=== PATIENT | male | born 1935 | race African-American/Black ===

== ENCOUNTER → 2016-12-06 | Outpatient (CLI) | payer MEDICARE, OTHER ==
[2016-04-28 15:18] VITALS: BP 147/72
[~2016-12-06] MED LIST: ALLO300T PO; ASPI325T4 PO; FELO5TAB PO; HYDR-963 PO; NITR0.4T6 SL; TAMS0.4C2 PO; TERA2CAP3 PO; ZOLP10TA PO; lortab; plendil
--- NOTE | 2016-12-06 14:03 | RAD ---
APPROVED REPORT Patient Location: OUT-PATIENT Indications PVD VELOCITY AND DOPPLER WAVEFORM ANALYSIS RIGHT cm/secWaveformSeverity LEFT c m/secWaveformSeverity Ext Iliac Art. 132.0MonophasicExt Iliac Art. 183.0Monophas ic pCFA 190.0MonophasicpCFA 140.0Monophas ic dCFA 150.0MonophasicdCFA 139.0Monophas ic Prof Fem Art. 174.0MonophasicProf Fem Art. 165.0Monophas ic Fem Art Prox. OccludedFem Art Prox. 174.0Monophasic Fem Art Mid. OccludedFem Art Mid. 167.0Monophasic Fem Art Dist. OccludedFem Art Dist. 110.0Monophasic Pop Art(AK) 34.0MonophasicPop Art(AK) 121.0Monophasi c Pop Art(BK) 36.0MonophasicPop Art(BK) 82.0Monophasic PHOTOGRAPHIC DOUBLE Prox. 40.0MonophasicPTA Prox. 58.0Monophasic PHOTOGRAPHIC DOUBLE Dist. 43.0MonophasicPTA Dist. 70.0Monophasic KENYON Prox. 29.0MonophasicATA Prox. 61.0Monophasic Image Findings Grayscale images of the right lower extremity arterial structures reveal moderate to severe diffuse p laque in the above-knee vessels. Monophasic waveforms are noted extending from the external iliac ar loan to the proximal superficial femoral artery. There is a long mid SFA occlusion. Reconstitution of blood flow is noted in the popliteal segment with persistent monophasic waveforms below the knee i n the anterior and posterior tibial distributions. The peroneal artery was not well visualized. Grayscale images of the left lower extremity arterial structures reveal moderate diffuse plaque. Mon ophasic waveforms are noted extending from the external iliac artery to the below-knee vessels. No s ignificant flow-limiting obstructive lesions are noted. Cannot rule out the possibility of a mid SFA stent. Below the knee anterior and posterior tibial distributions appear to be patent but with mono phasic waveforms suggestive of chronic long-standing lower extremity arterial disease. The peroneal artery again was not well visualized. Critical Notification Critical Value: No <Conclusion> 1. Bilateral lower extremity atherosclerotic peripheral vascular disease. 2. No significant flow-limiting stenosis on the left side. 3. There is a long mid SFA occlusion on the right side.
== END | disposition home or self-care (01) ==
LOC: US 12:41
PROVIDERS: ATTEND Internal Medicine Cardiovascular Disease
DX: I73.9 Peripheral vascular disease, unspecified (principal); I70.203 Unspecified atherosclerosis of native arteries of extremities, bilateral legs
CPT/HCPCS: 93925

== ENCOUNTER → 2017-04-26 | Outpatient (CLI) | payer MEDICARE, OTHER ==
[~2017-04-26] VITALS: Ht 172.7 cm; Wt 92.1 kg
[~2017-04-26] MED LIST changes: -ASPI325T4 PO; +ASPI325T8 PO; +BUPIVACAINE 0.5% 50 ML VIAL. IJ ONE; +IOHEXOL 300 MG/ML 10ML VIAL. IJ ONE; +IOHEXOL 300 MG/ML 50 ML VIAL. IJ ONE; +LIDOCAINE 1% / SOD BICARB 8.4% 20 ML VIAL. IJ ONE; +NITR0.4T22 SL; -NITR0.4T6 SL; +TRAM50TA PO; +methylPREDNISolone ACETATE 80 MG/ML VIAL. IM ONE
[2017-04-26 09:39] VITALS: BP 145/59
--- NOTE | 2017-04-26 10:51 | RAD ---
Fluoroscopically guided left hip joint injection, 04/26/2017: History: Hip pain Under local anesthesia, aseptic conditions and fluoroscopic guidance a 22-gauge spinal needle was passed in the left hip joint via an anterior approach. A small amount of iodinated contrast material was injected to confirm intra-articular positioning following which 80 mg of Depo-Medrol mixed with 4 cc of 0.5% Sensorcaine was injected into the joint as requested. The needle was then removed and hemostasis obtained. One fluoroscopic spot image was recorded. 0.5 minutes of fluoroscopy time was utilized. The patient tolerated the procedure well and left the department in good condition.
== END | disposition home or self-care (01) ==
LOC: RAD 09:03
PROVIDERS: ATTEND Internal Medicine
DX: M25.552 Pain in left hip (principal)
CPT/HCPCS: 20605; 77002; J1040; J3490; Q9967

== ENCOUNTER → 2019-06-11 | Outpatient (CLI) | payer MEDICARE, OTHER ==
[2017-07-01 09:37] VITALS: BP 147/66
[~2019-06-11] MED LIST changes: -BUPIVACAINE 0.5% 50 ML VIAL. IJ ONE; +HYDR-2769 PO; +HYDR-3135 PO; -HYDR-963 PO; -IOHEXOL 300 MG/ML 10ML VIAL. IJ ONE; -IOHEXOL 300 MG/ML 50 ML VIAL. IJ ONE; -LIDOCAINE 1% / SOD BICARB 8.4% 20 ML VIAL. IJ ONE; +LOSA1TAB19 PO; +METO25TA4 PO; +REGADENOSON 0.4 MG/5 ML DISP.SYRIN. IV ONE; +TEMA15CA6 PO; -methylPREDNISolone ACETATE 80 MG/ML VIAL. IM ONE
--- NOTE | 2019-06-11 12:20 | CARD ---
MR#: [id number] Date of Study: 06/11/2019 Ordering Physician: GORDON RICHARDSON, Referring Physician: GORDON RICHARDSON Tech: Radha García RDCS APPROVED REPORT EXAM: Two-dimensional and M-mode echocardiogram with Doppler and color Doppler. INDICATION Cardiac Disease: CAD Pacemaker 2D DIMENSIONS RVDd2.7 (2.9-3.5cm)Left Atrium(2D)2.4 (1.6-4.0cm) IVSd1.4 (0.7-1.1cm)Aortic Root(2D)2.5 (2.0-3.7cm) LVDd3.5 (3.9-5.9cm)LVOT Diameter2.0 (1.8-2.4cm) PWd1.5 (0.7-1.1cm)LVDs2.8 (2.5-4.0cm) FS (%) 19.6 %SV21.6 ml LVEF(%)55.0 (>50%) Aortic Valve AoV Peak Dayo.209.5cm/sAoV VTI49.1cm AO Peak GR.17.6mmHgLVOT Peak Dayo.103.3cm/s AO Mean GR.10mmHgAVA (VMAX)1.48cm2 KRISTEN (VTI)1.85ro4ZN P 1/2 Pckn114qi Mitral Valve MV E Mbuafhnx50.9cm/sMV DECEL EFHZ871nr MV A Gyaxokem36.3cm/sE/A Ratio0.8 Tricuspid Valve TR P. Xpbcihbd560ax/sRAP XSKKHGLR8slZy TR Peak Gr.80kmHnWJOJ55rsFh Pulmonary Vein S1 Ydpqtdrd45.4cm/sD2 Lhulwylj94.5cm/s LEFT VENTRICLE The left ventricle is normal size. There is mild to moderate left ventricular hypertrophy. The left v entricular systolic function is normal. The Ejection Fraction is 55-60%. There is normal LV segmental wall motion. Transmitral Doppler flow pattern is Grade I-abnormal relaxation pattern. RIGHT VENTRICLE The right ventricle is normal size. The right ventricular systolic function is normal. ATRIA The left atrium size is normal. The right atrium size is normal. The interatrial septum is intact wit h no evidence for an atrial septal defect or patent foramen ovale as noted on 2-D or Doppler imaging. AORTIC VALVE The aortic valve is calcified and displays decreased opening. Doppler and Color Flow revealed trace t o mild aortic regurgitation. Calculated aortic valve area is 1.6 cm2 with maximum pressure gradient o f 18 mmHg and mean pressure gradient of 10 mmHg. Doppler and color-flow analysis revealed mild aortic stenosis. MITRAL VALVE The mitral valve is mildly thickened but opens well. There is no evidence of mitral valve prolapse. T here is no mitral valve stenosis. Doppler and Color-flow revealed mild mitral regurgitation. TRICUSPID VALVE The tricuspid valve is normal in structure and function. Doppler and Color Flow revealed mild tricusp id regurgitation. There is mild pulmonary hypertension. The PA pressure was estimated at 38 mmHg. The re is no tricuspid valve stenosis. PULMONIC VALVE The pulmonary valve is normal in structure and function. Doppler and Color Flow revealed no pulmonic valvular regurgitation. There is no pulmonic valvular stenosis. GREAT VESSELS The aortic root is normal in size. The ascending aorta is not well seen. The IVC was not visualized. PERICARDIAL EFFUSION There is no evidence of significant pericardial effusion. Critical Notification Critical Value: No <Conclusion> The left ventricular systolic function is normal. The Ejection Fraction is 55-60%. There is normal LV segmental wall motion. Transmitral Doppler flow pattern is Grade I-abnormal relaxation pattern. Mild aortic stenosis. Trace to mild aortic regurgitation. Mild mitral regurgitation. Mild tricuspid regurgitation. The PA pressure was estimated at 38 mmHg. There is no evidence of significant pericardial effusion. Signed by : Gordon Richardson, Electronically Approved : 06/11/2019 12:19:26
--- NOTE | 2019-06-11 14:17 | RAD ---
MR#: [id number] Date of Study: 06/11/2019 Ordering Physician: GORDON RICHARDSON, Referring Physician: VICTORIANO GANT Tech: RT Johanna (R) (N) APPROVED REPORT Test Type: Pharmacological Stress Nurse/Tech: Geeta Barney RN Test Indications: dyspnea, dizziness Cardiac History: Hypertension, CAD (stents in place), pacemaker Medications: See Electronic Medical Record Medical History: See Electronic Medical Record Resting ECG: A. PACED RHYTHM Resting Heart Rate: 67 bpm Resting Blood Pressure: 139/74mmHg Pretest Chest Pain: No chest pain Nurse/Tech Notes S1,S2, LS clear Consent: The procedure was explained to the patient in lay terms. Informed consent was witnessed. Arnold eout was entered into [facility]. History and Stress Test performed by Getea Barney RN Pharm. Details Pharmacologic stress testing was performed using 0.4mg per 5ml of regadenoson given intravenously ove r 7-10 seconds. Stress Symptoms No chest pain or symptoms. POST EXERCISE Reason for Termination: Infusion complete Max HR: 84 bpm Max Blood Pressure: 151/64mmHg Chest Pain: No. Arrhythmia: No. ST Change: No. INTERPRETATION Stress EKG Conclusion: Baseline EKG showed atrial paced rhythm. Non-diagnostic changes at peak stres s. No arrhythmias. Imaging Protocol IMAGE PROTOCOL: Rest Tc-99m/stress Tc-99m 1 day Rest: Stress: Viability: Radiopharm.Tc99m XqffxyvtxIj06e Sestamibi Dose10.6mCi 33mCi Duration 15min. 15min. Img Date 06/11/2019 06/11/2019 Inj-Img Tuvn98ddr. 45min. Rest Admin Site:IV - Right HandAdministrator:RT Johanna (R)(N) Stress Admin Site: IV - Right HandAdministrator: YOUSIF Del Valle, ARRT (R)(N) STRESS DATA End Diast. Vol.142.0mlAv. Heart Rate60.0bpm End Syst. Vol.49.0mlCO Index BSA5.6L/min Myocardial Xjlg813.0gEject. Sivawaqy80.0% Stress Rates Pk. Fill Rate2.31EDV/secLVtime Pk. Fill 128.92msec Pk. Empty Rate2.42ESV/secLVtime Pk. Kmqfj382.87msec 1/3 Pk. Fill1.73EDV/sec Stress Scores Regional WT1.00Summed WT9.00 Regional WM0.00Summed WM1.00 LV Perfusion Scintigraphic images showed fixed defect in the inferior wall most probably diaphragmatic attenuation artifact based on normal wall motion. No other fixed or reversible defects were seen. Wall Motion Normal left ventricle systolic function with ejection fraction calculated at 65%. LV Perf. Quant 17 Seg. SSS6.00 17 Seg. SRS2.00 17 Seg. SDS4.00 Stress Defect Extent (% LAD)5.60Rest Defect Extent (% LAD)1.90Rev. Defect Extent (% LAD)1.30 Stress Defect Extent (% LCX) 13.80Rest Defect Extent (% LCX)13.80Rev. Defect Extent (% LCX)0.00 Stress Defect Extent (% RCA)5.60Rest Defect Extent (% RCA)8.90Rev. Defect Extent (% RCA)0.00 Stress Defect Extent (% TYRON)11.30Rest Defect Extent (% TYRON)10.40Rev. Defect Extent (% TYRON)0.40 Conclusion 1. Regadenoson cardioisotope stress test showed diaphragmatic attenuation artifact without any eviden ce of ischemia or infarct. 2. Normal left ventricular systolic function with ejection fraction calculated at 65%. 3. Low risk for cardiac events. Signed by : Gordon Richardson, Electronically Approved : 06/11/2019 14:17:27
--- NOTE | 2019-06-11 18:30 | RAD ---
MR#: [id number] Date of Study: 06/11/2019 Ordering Physician: GORDNO RICHARDSON, Referring Physician: GORDON RICHARDSON, Tech: Thomas Brice MBA, RDMS, RVT, RDCS, RTR APPROVED REPORT Patient Location: OUT-PATIENT Indications PAD VELOCITY AND DOPPLER WAVEFORM ANALYSIS RIGHT cm/secWaveformSeverity LEFT cm/secWaveform Severity dCFA 107.0MonophasicdCFA 150.0Monophasic Prof Fem Art. 69.0MonophasicProf Fem Art. 160.0Monophasic Fem Art Prox. OccludedFem Art Prox. Occluded Fem Art Mid. OccludedFem Art Mid. 40.0Monophasic Fem Art Dist. OccludedFem Art Dist. 68.0Monophasic Pop Art(AK) 23.0MonophasicPop Art(AK) 45.0Monophasic Pop Art(BK) 43.0MonophasicPop Art(BK) 71.0Monophasic TRANSITION TEACHER Prox. 31.0MonophasicPTA Prox. 45.0Monophasic TRANSITION TEACHER Dist. 36.0MonophasicPTA Dist. 56.0Monophasic KENYON Prox. 22.0MonophasicATA Prox. 44.0Monophasic DPA 19MonophasicDPA 13Monophasic Image Findings Grayscale images of the bilateral lower extremity arterial vessels reveals moderate diffuse plaque On the right the superficial femoral arteries occluded. There is reconstitution at the level of the p opliteal artery. There are severely diminished monophasic waveforms throughout the below-knee vessels . The right peroneal artery is not well visualized. Elevated velocities in the left profunda femoris artery suggestive of mild to moderate disease. The p roximal SFAs occluded. Mid to distal SFA and popliteal artery velocities as well as below-knee veloci ties are monophasic but there is likely a robust collateral network. The left peroneal artery is also not well visualized. Critical Notification Critical Value: No <Conclusion> 1. Bilateral SFA occlusions as described above. Severely diminished below-knee flow likely secondary to SFA disease. Signed by : Andrew Teixeira, Electronically Approved : 06/11/2019 18:30:13
== END | disposition home or self-care (01) ==
LOC: NM 10:42
PROVIDERS: ATTEND Internal Medicine Cardiovascular Disease
DX: I08.3 Combined rheumatic disorders of mitral, aortic and tricuspid valves (principal); I11.9 Hypertensive heart disease without heart failure; I77.1 Stricture of artery; I25.10 Atherosclerotic heart disease of native coronary artery without angina pectoris; I73.9 Peripheral vascular disease, unspecified; Z95.5 Presence of coronary angioplasty implant and graft; Z95.0 Presence of cardiac pacemaker
CPT/HCPCS: 78452; 93017; 93306; 93925; A9500; J2785

== ENCOUNTER 2019-08-26 10:03 | Inpatient (IN) | payer MEDICARE, OTHER ==
[~2019-08-26] VITALS: Ht 182.9 cm; Wt 78.2 kg
[~2019-08-26 10:03] MED LIST changes: -REGADENOSON 0.4 MG/5 ML DISP.SYRIN. IV ONE
[2019-08-26 10:30] VITALS: BP 171/66
[2019-08-26] MEDS ORDERED: TAMS0.4C97 PO ×2 (10:57→12:32)
[2019-08-26] MEDS ORDERED: ALLO300T PO (10:57)
[2019-08-26] MEDS ORDERED: ASPI325T8 PO (10:57)
[2019-08-26] MEDS ORDERED: LOSA-73 PO (10:57)
[2019-08-26] MEDS ORDERED: TRAZ-118 PO (10:57)
[2019-08-26 11:00] VITALS: BP 171/66
[2019-08-26] MEDS ORDERED: VANCOMYCIN 1 GM in IV NORMAL SALINE 250ML 250 ML IV ONE (12:15)
[2019-08-26] MEDS ORDERED: VANCOMYCIN PER PHARMACY MC PRN (12:15)
[2019-08-26] MEDS ORDERED: NITROGLYCERIN SUBLINGUAL 0.4 MG BOTTLE OF 25. SL PRN (12:30)
[2019-08-26] MEDS ORDERED: VANCOMYCIN 2 GM in IV NORMAL SALINE 500ML BAG 500 ML IV ONE (12:30)
[2019-08-26] MEDS ORDERED: traMADol 50 MG TABLET PO PRN (12:30)
[2019-08-26] MEDS ORDERED: PIPERACILLIN/TAZOBACTAM 3.375 GM in IV NORMAL SALINE 50ML 50 ML IV ONE (12:30)
[2019-08-26] MEDS ORDERED: TRAM50TA PO (12:32)
[2019-08-26] MEDS ORDERED: VANCOMYCIN 1.5 GM in IV NORMAL SALINE 500ML BAG 500 ML IV ONE (12:45)
[2019-08-26 13:00] LABS: HEMATOCRIT 31.2 % (39.0-53.0); HEMOGLOBIN 10.6 g/dL (13.0-17.5); WHITE BLOOD COUNT 4.7 x10^3/uL (4.0-11.0)
[2019-08-26 13:09] LABS: PROTHROMBIN TIME PATIENT 13.9 SEC (11.7-14.0)
[2019-08-26 13:16] LABS: CALCIUM 8.9 mg/dL (8.5-10.1); CREATININE 1.1 mg/dL (0.7-1.3); POTASSIUM 3.9 mmol/L (3.5-5.1)
[2019-08-26 13:22] LABS: ALBUMIN 3.5 g/dL (3.4-5.0); ALBUMIN/GLOBULIN RATIO 0.9 (1.0-1.7); TOTAL BILIRUBIN 0.5 mg/dL (0.2-1.0); TOTAL PROTEIN 7.2 g/dL (6.4-8.2)
--- NOTE | 2019-08-26 13:33 | PDOC2 ---
CONSULT Date of Consult Date of Consult DATE: 08/26/19 TIME: 13:25 Reason for Consult Reason for Consult: Right second toe ulceration History of Present Illness Reason for Visit: This is a very pleasant 84-year-old -[place] male who is referred for admission due to and ulceration of the right second toe secondary to rubbing on his first toe. Patient has a previous history of a pacemaker insertion and a long history of smoking a proximally 1 pack per day for 60 years. He denies any previous peripheral intervention. 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 Past Medical History Cardiovascular: CAD, HTN, Hyperlipidemia, Other Musculoskeletal: Osteoarthritis Infectious disease: No pertinent hx Renal/: No pertinent hx Endocrine: No pertinent hx Past Surgical History Past Surgical History: Pacemaker, Other Family History Family History: Heart Disease Social History Quit (1 pack per day for 60 years but quit 5 years ago) ALCOHOL: none Drugs: None Lives: with Family Current Medications Current Medications Current Medications Influenza Virus Vaccine Quadrival (Afluria Quad 2019-20 (3yr Up) Syringe) 0.5 ml ONCE ONCE VAX IM ; Start 08/26/19 at 15:00; Stop 08/26/19 at 15:01 Vancomycin HCl (Vanco Per Pharmacy) 1 each PRN DAILY PRN MC SEE COMMENTS; Start 08/26/19 at 12:15; Status UNV Vancomycin HCl 1 gm/Sodium Chloride 250 ml @ 250 mls/hr 1X ONCE IV ; Start at 12:15; Stop 08/26/19 at 13:14; Status UNV Piperacillin Sod/ Tazobactam Sod 3.375 gm/Sodium Chloride 50 ml @ 100 mls/hr Q6HRS IV ; Start 08/26/19 at 18:00 Vancomycin HCl 2 gm/Sodium Chloride 500 ml @ 250 mls/hr ONCE ONCE IV ; Start 08/26/19 at 12:30; Stop 08/26/19 at 14:29; Status Cancel Piperacillin Sod/ Tazobactam Sod 3.375 gm/Sodium Chloride 50 ml @ 100 mls/hr ONCE ONCE IV ; Start 08/26/19 at 12:30; Stop 08/26/19 at 12:59; Status DC Allopurinol (Zyloprim) 300 mg DAILY PO ; Start 08/27/19 at 09:00 Aspirin (Ecotrin) 325 mg DAILYWBKFT PO ; Start 08/27/19 at 08:00 Losartan Potassium (Cozaar) 50 mg DAILY PO ; Start 08/27/19 at 09:00 Nitroglycerin (Nitrostat) 0.4 mg PRN Q20MIN PRN SL CHEST PAIN; Start 08/26/19 at 12:30 Tamsulosin HCl (Flomax) 0.4 mg BID PO ; Start 08/26/19 at 21:00 Tramadol HCl (Ultram) 50 mg Q6HRS PRN PO PAIN; Start 08/26/19 at 12:30 Trazodone HCl (Desyrel) 50 mg QHS PO ; Start 08/26/19 at 21:00 Amlodipine Besylate (Norvasc) 5 mg DAILY16 PO ; Start 08/26/19 at 16:00 Vancomycin HCl 1.5 gm/Sodium Chloride 500 ml @ 250 mls/hr 1X ONCE IV ; Start 08/26/19 at 12:45; Stop 08/26/19 at 14:44 Active Scripts Active Reported Flomax (Tamsulosin Hcl) 0.4 Mg Cap.er.24h 1 Cap PO BID Tramadol Hcl 50 Mg Tablet 50 Mg PO Q6HRS PRN Trazodone Hcl 50 Mg Tablet 1 Tab PO QHS Aspirin 325 Mg Tablet 1 Tab PO DAILY Allopurinol 300 Mg Tablet 1 Tab PO DAILY Losartan Potassium 50 Mg Tablet 50 Mg PO DAILY NITROGLYCERIN SubLingual (Nitroglycerin) 0.4 Mg Tab.subl 1 Tab SL UD Felodipine Er (Felodipine) 5 Mg Tab.er.24h 1 Tab PO DAILY16 Allergies Allergies: Coded Allergies: No Known Drug Allergies (Unverified , 04/27/16) Physical Exam General: Alert, Oriented X3, Cooperative, No acute distress HEENT: EOMI, Mucous membr. moist/pink Lungs: Clear to auscultation, Normal air movement Heart: Regular rate, Normal S1, Normal S2 Abdomen: Soft, No tenderness, Other (no evidence of palpable pulsatile abdominal mass) Extremities: Other (2+ femoral pulses bilaterally, intact biphasic posterior tibial Doppler signal on the right with a monophasic Doppler signal in the dorsalis pedis location, biphasic dorsalis pedis and posterior tibial Doppler signal in the left lower extremity) Skin: Other (decubitus-type ulceration at the distal interphalangeal joint of the right second toe due to rubbing from the right first toe, skin discoloration and hyperpigmentation but no evidence of gangrenous changes) Neuro: Normal speech, Strength at 5/5 X4 ext, Normal tone, Sensation intact, Cranial nerves 3-12 NL Psych/Mental Status: Mental status NL, Mood NL Vitals VITALS Vital Signs Date Time Temp Pulse Resp B/P (MAP) Pulse Ox O2 Delivery O2 Flow Rate FiO2 08/26/19 11:00 98.3 65 171/66 (101) 99 Room Air 98.3 Labs Labs Laboratory Tests Test 08/26/19 12:40 White Blood Count 4.7 x10^3/uL (4.0-11.0) Hemoglobin 10.6 g/dL (13.0-17.5) Hematocrit 31.2 % (39.0-53.0) Platelet Count 165 x10^3/uL (140-400) Prothrombin Time 13.9 SEC (11.7-14.0) Prothromb Time International Ratio 1.1 (0.8-1.1) Sodium Level 142 mmol/L (136-145) Potassium Level 3.9 mmol/L (3.5-5.1) Chloride Level 109 mmol/L (98-107) Carbon Dioxide Level 26 mmol/L (21-32) Anion Gap 7 (6-14) Blood Urea Nitrogen 15 mg/dL (8-26) Creatinine 1.1 mg/dL (0.7-1.3) Estimated GFR (Cockcroft-Gault) 77.0 BUN/Creatinine Ratio 14 (6-20) Glucose Level 67 mg/dL (70-99) Calcium Level 8.9 mg/dL (8.5-10.1) Total Bilirubin 0.5 mg/dL (0.2-1.0) Aspartate Amino Transf (AST/SGOT) 17 U/L (15-37) Alanine Aminotransferase (ALT/SGPT) 16 U/L (16-63) Alkaline Phosphatase 74 U/L (46-116) Total Protein 7.2 g/dL (6.4-8.2) Albumin 3.5 g/dL (3.4-5.0) Albumin/Globulin Ratio 0.9 (1.0-1.7) Laboratory Tests Test 08/26/19 12:40 White Blood Count 4.7 x10^3/uL (4.0-11.0) Hemoglobin 10.6 g/dL (13.0-17.5) Hematocrit 31.2 % (39.0-53.0) Platelet Count 165 x10^3/uL (140-400) Prothrombin Time 13.9 SEC (11.7-14.0) Prothromb Time International Ratio 1.1 (0.8-1.1) Sodium Level 142 mmol/L (136-145) Potassium Level 3.9 mmol/L (3.5-5.1) Chloride Level 109 mmol/L (98-107) Carbon Dioxide Level 26 mmol/L (21-32) Anion Gap 7 (6-14) Blood Urea Nitrogen 15 mg/dL (8-26) Creatinine 1.1 mg/dL (0.7-1.3) Estimated GFR (Cockcroft-Gault) 77.0 BUN/Creatinine Ratio 14 (6-20) Glucose Level 67 mg/dL (70-99) Calcium Level 8.9 mg/dL (8.5-10.1) Total Bilirubin 0.5 mg/dL (0.2-1.0) Aspartate Amino Transf (AST/SGOT) 17 U/L (15-37) Alanine Aminotransferase (ALT/SGPT) 16 U/L (16-63) Alkaline Phosphatase 74 U/L (46-116) Total Protein 7.2 g/dL (6.4-8.2) Albumin 3.5 g/dL (3.4-5.0) Albumin/Globulin Ratio 0.9 (1.0-1.7) Assessment/Plan Assessment/Plan Atherosclerosis with ulceration of the right lower extremity--patient has an ulcer involving the distal interphalangeal joint of the right second toe. 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 I have recommended an aortogram with bilateral lower extremity runoff and possible right lower extremity intervention. The details of this procedure were discussed with the patient and his family and they are agreeable to proceed. We'll make him nothing by mouth after midnight tonight. We will follow-up with the antrum results and make further recommendations based on the findings. We will change his aspirin therapy to 81 mg as there is no benefit of a full dose aspirin to baby aspirin. We will take the liberty of starting the patient on a statin agent as well due to significant cardiovascular risk factors. Right second toe ulceration--there is no evidence of gangrene. The patient does have an ulcer at the distal interphalangeal joint. This does not appear markedly infected. I believe an oral antibiotic would be sufficient for prophylactic coverage. Once we have restored blood flow, we will see if the ulceration heals. If not I did discuss that the patient could require a toe amputation. Brendan De Anda DO, JOSE, RPVI Vascular Surgery BRENDAN DE ANDA DO Aug 26, 2019 13:33
[2019-08-26] MEDS: IV NORMAL SALINE 1000ML BAG 1,000 ML IV SCH (13:59)
[2019-08-26 15:00] VITALS: BP 172/77
[2019-08-26] MEDS ORDERED: FLU VAX QS 2019-20 (36MOS+)/PF 0.5 ML SYRINGE. VAX IM ONE (15:00)
[2019-08-26] MEDS: amLODIPine BESYLATE 5 MG TABLET PO SCH (15:05)
--- NOTE | 2019-08-26 16:00 | NUR ---
Wound care: Patient seen per wound care consult. See wound assessment. patient has stage III pressure ulcer to right 2nd toe. Patient seen by vascular, patient will have intervention and hopes wound will heal and patient will not need amputation. Wound cleansed, assessed, and measured. Recommendations to paint wound daily with Betadine and a corn placed to relieve the pressure from the big toe to the 2nd toe. No other wounds noted upon complete head to toe assessment. Dressing change instructions left in room. Bed lowered and call light in reach. Family at bedside. wound care will follow up with patient on 09/03/19.
[2019-08-26] MEDS: VANCOMYCIN PER PHARMACY MC PRN (16:53)
--- NOTE | 2019-08-26 16:53 | NUR ---
Pharmacy Vancomycin Dosing Note S: Consulted to monitor and dose vancomycin started 08/26/19. O: BOO MEDINA is a 84 year old M with GANGRENE TOE . Other Antibiotics: ZOSYN LABS: Last BUN: 15 Last Creatinine: 1.1 Creatinine Clearance: 40 mL/min Last WBC: 4.7 Tmax (past 24 hours): AFEBRILE Vancomycin Dosing: Dosing Weight: Actual Target Trough: 10-20 A: Based on: VANCO dosing guidelines P: 1. Begin Vancomycin 1500mg LOAD dose, then 1000 mg IV q24h 2. Follow up Trough level on 08/28/19 at 1430 3. Pharmacy will continue to monitor, follow and adjust therapy as needed. LEXI BOGGS, [facility], 08/26/19 [id number]
[2019-08-26] MEDS: PIPERACILLIN/TAZOBACTAM 3.375 GM in IV NORMAL SALINE 50ML 50 ML IV SCH (18:10)
[2019-08-26 19:00] VITALS: BP 157/76
[2019-08-26] MEDS: TAMSULOSIN 0.4 MG CAP.ER.24H. PO SCH (20:56)
[2019-08-26] MEDS: ATORVASTATIN CALCIUM 40 MG TABLET. PO SCH (20:56)
[2019-08-26] MEDS: traZODone 50 MG TABLET. PO SCH (20:56)
[2019-08-26 23:00] VITALS: BP 169/70
[2019-08-27] VITALS (14 sets, daily range): BP systolic 130–167; BP diastolic 61–117
[2019-08-27] MEDS: PIPERACILLIN/TAZOBACTAM 3.375 GM in IV NORMAL SALINE 50ML 50 ML IV SCH ×4 (00:02→16:56)
[2019-08-27] MEDS: IV NORMAL SALINE 1000ML BAG 1,000 ML IV SCH ×2 (03:00→20:00)
--- NOTE | 2019-08-27 07:05 | EKG ---
[facility] [address] [place] [address] Test Date: 2019-08-27 Test Time: 07:01:27 Pat Name: BOO MEDINA Department: Room: 436 1 Gender: M Blind Hanger: ANGELES : 1935 Requested By: GUILLE PINEDA Order Number: [id number] Reading MD: Measurements Intervals [place] Rate: 63 P: -90 WV: 146 QRS: 37 QRSD: 98 T: 34 QT: 444 QTc: 458 Interpretive Statements SINUS RHYTHM NO SPECIFIC ECG ABNORMALITIES RI6.01 Unconfirmed report Compared to ECG 06/29/2017 17:21:06 First degree AV block no longer present
[2019-08-27] MEDS ORDERED: ASPIRIN ENTERIC COATED 325 MG TABLET.DR. PO SCH (08:00)
--- NOTE | 2019-08-27 09:29 | PDOC ---
Provider Note Provider Note Vascular surgery progress Pt seen yesterday by Dr. Mcfadden for right second toe discoloration and ulcer. Today pt has no complaints. He is resting in bed comfortably. On US he has bilateral SFA occlusions, we have recommended arteriogram. A/P: Atherosclerosis with ulceration of the right lower extremity For arteriogram with BL runoff and possible RLE intervention today. Continue ASA, statin. Right second toe ulceration--there is no evidence of gangrene. The patient does have a pressure ulcer on medial second toe from a hallus valgus deformity at the distal interphalangeal joint. This does not appear markedly infected. We believe an oral antibiotic would be sufficient for prophylactic coverage. Once we have restored blood flow, we will see if the ulceration heals. If not we did discuss that the patient could require a toe amputation. HPlease notify vascular when results of AARO are available and we can review these with further recommendations later today and hopefully the patient can go home later this evening. Discussed with Dr. Johnson. SUSANNAH VIEIRA Aug 27, 2019 09:29
--- NOTE | 2019-08-27 10:07 | PDOC ---
Provider Note Provider Note PT seen.H&P dictated. #[id number] GUILLE PINEDA MD Aug 27, 2019 10:07
[2019-08-27] MEDS: VANCOMYCIN PER PHARMACY MC PRN (11:38)
--- NOTE | 2019-08-27 11:47 | HP ---
ADMIT DATE: 08/26/2019 REASON FOR ADMISSION TO THE HOSPITAL: Right second toe chronic ulceration, possible osteo and the patient's toe is turning black discoloration. HISTORY OF PRESENT ILLNESS: The patient is an 84-year-old male. The patient has a history of arthritis, peripheral vascular disease and he has a bunion at the big toe. Right big toe is rubbing and second toe, he has developed a skin ulcer and broke down and then, it is painful and lately it is turning into color to dark. The patient had a previous workup done, which shows vascular disease and because of possible osteo and early gangrene and peripheral vascular disease, was admitted to the hospital for IV antibiotics and vascular intervention. PAST MEDICAL HISTORY: He has history of hypertension, hyperlipidemia, coronary artery disease, arthritis. PAST SURGICAL HISTORY: Has a pacemaker. PERSONAL HISTORY: Smoked for 60 years, quit 5 years ago. Denies alcohol or drug abuse. SOCIAL HISTORY: Lives with his . ALLERGIES: No known drug allergies. MEDICATIONS AT HOME: The patient is on allopurinol 300 mg daily, aspirin 325 daily, felodipine 5 mg daily, losartan 50 mg daily, Nitro 0.4 p.r.n., Flomax 0.4 daily, tramadol 50 mg q. 6 hours, trazodone 50 mg at bedtime. FAMILY HISTORY: Unremarkable. REVIEW OF SYMPTOMS: Denies any chest pain. Complains of pain in the toe area. Rest of the 14-system was reviewed and negative. PHYSICAL EXAMINATION: VITAL SIGNS: At the time of admission shows a temperature 98, pulse 65, respirations 18, blood pressure 171/66, saturation 99% on room air. HEENT: Head is atraumatic. Pupils equal. Oral cavity: No congestion. NECK: Supple. Thyroid not enlarged. JVD not elevated. CHEST: Symmetrical, has a pacemaker in left side of chest. CARDIOVASCULAR: S1, S2. LUNGS: Clear to auscultation. ABDOMEN: Soft, no mass palpable. EXTERNAL GENITALIA: No Slade. RECTAL: Deferred. EXTREMITIES: The patient has arthritis in the knee, ankle. The patient has a bunion of the right big toe and also there is ulceration of the second toe, skin breakdown. He could feel the fibrous tissue at the base of the ulcer, dark discoloration of the toe, painful and the patient has no palpable pulsations at dorsalis and posterior tibial. Left foot, no ulcerations. NEUROLOGIC: Moving all extremities. No focal deficits noted. LABORATORY DATA: White count 4.7, hemoglobin 10.6, platelets 165. INR 1.1. Electrolytes show sodium 142, potassium 3.9, chloride 109, bicarb 26, BUN 15, creatinine 1.1. LFTs were normal. The patient had a Doppler of her lower extremity in April which showed bilateral superficial femoral artery occlusion. Diminished blood flow below the knee and the patient had a stress test negative for ischemia in May. FINAL IMPRESSION: 1. Right second toe ulcer, possible osteo, early gangrene. 2. Severe peripheral vascular disease, has a known history of peripheral vascular disease. 3. Coronary artery disease, stable; no angina; no ischemia. 4. Pacemaker for sick sinus syndrome. 5. Hypertension. 6. Arthritis. 7. Gout. PLAN: At this time, wound culture, started on antibiotic, vancomycin and Zosyn. Vascular consult and x-ray of the toe, probably may need a limited bone scan and the patient is seen by Vascular and scheduled for arteriogram and maybe a vascular intervention to improve the blood flow and further recommendations to follow. GUILLE PINEDA MD DR: MELISSA/michelle JOB#: [id number] / [id number]
[2019-08-27] MEDS ORDERED: IODIXANOL 320 MG/ML 100 ML VIAL. ONE (12:03)
[2019-08-27] MEDS ORDERED: LIDOCAINE WITH 8.4% SOD BICARB 3 ML DISP.SYRIN. ONE (12:04)
[2019-08-27] MEDS ORDERED: HEPARIN for ARTERIAL LINE 1,500 ML ONE (12:04)
[2019-08-27] MEDS ORDERED: MIDAZOLAM HCL/PF 2 MG/2 ML VIAL. ONE (13:01)
[2019-08-27] MEDS ORDERED: fentaNYL PF VIAL 100 MCG/2 ML VIAL ONE (13:01)
[2019-08-27] MEDS ORDERED: HEPARIN for IV BOLUS 10,000 UNIT/10 ML VIAL. ONE (13:02)
--- NOTE | 2019-08-27 13:16 | RAD ---
CHEST PA LATERAL History: Shortness of breath Comparison: 06/29/2017 AP view of the chest. Findings: Frontal and lateral view the chest were obtained. Costophrenic angles are not fully included on the lateral view. Dual-lead left-sided pacemaker is present. Leads are intact and in place on the basis of the lateral view. The cardiomediastinal silhouette is normal. Pulmonary vasculature is normal. The lungs are clear. No pleural effusion or pneumothorax is seen. There is no acute bone abnormality. IMPRESSION: No acute cardiopulmonary process. Electronically signed by: Óscar Harman MD (08/27/2019 1:13 PM) [facility]
[2019-08-27] MEDS ORDERED: fentaNYL PF VIAL 100 MCG/2 ML VIAL IV ONE (14:15)
[2019-08-27] MEDS ORDERED: MIDAZOLAM HCL/PF 2 MG/2 ML VIAL. IV ONE (14:15)
[2019-08-27] MEDS ORDERED: IODIXANOL 320 MG/ML 100 ML VIAL. IART ONE (14:15)
[2019-08-27] MEDS ORDERED: LIDOCAINE WITH 8.4% SOD BICARB 3 ML DISP.SYRIN. IJ ONE (14:15)
[2019-08-27] MEDS ORDERED: hydrALAZINE 20 MG/ML VIAL. ONE (14:29)
[2019-08-27] MEDS ORDERED: hydrALAZINE 20 MG/ML VIAL. IVP ONE (14:45)
[2019-08-27] MEDS ORDERED: VANCOMYCIN 1 GM in IV NORMAL SALINE 250ML 250 ML IV SCH (15:00)
--- NOTE | 2019-08-27 15:13 | NUR ---
SS following for discharge planning. SS reviewed pt chart. Pt is from home and is currently on room air. PT/OT evaluated and recommended home with assistance at discharge. landscape architect and planner, met with pt and family to discuss home healthcare. Pt's family requested no preference of company to discharge planning. Nurse navigator consulted and pt's family agreeable to [facility], ; fax [phone]. SS will continue to follow for discharge planning.
[2019-08-27] MEDS ORDERED: AMOX1TAB58 PO (15:15)
[2019-08-27] MEDS ORDERED: ATOR40TA59 PO (15:15)
[2019-08-27] MEDS: TAMSULOSIN 0.4 MG CAP.ER.24H. PO SCH ×2 (16:54→21:00)
[2019-08-27] MEDS: amLODIPine BESYLATE 5 MG TABLET PO SCH (16:55)
[2019-08-27] MEDS: LOSARTAN POTASSIUM 50 MG TABLET. PO SCH (16:55)
[2019-08-27] MEDS: ASPIRIN ENTERIC COATED 81 MG TABLET.DR. PO SCH (16:55)
[2019-08-27] MEDS: ALLOPURINOL 300 MG TABLET. PO SCH (16:56)
--- NOTE | 2019-08-27 17:05 | PDOC ---
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 reconstitution above the knee, distal sfa with two vessel runoff. could not traverse bench assembly inspector from above. Unsure degree to which wound is the result of vascular disease. If revascularization deemed necessary, could try retrograde endovascular approach, or bypass. Will defer to vascular surgery recs. JLAIL BUSTOS MD Aug 27, 2019 17:05
[2019-08-27] MEDS: ATORVASTATIN CALCIUM 40 MG TABLET. PO SCH (21:00)
[2019-08-27] MEDS: LACTOBACILLUS RHAMNOSUS GG 1 CAPSULE. PO SCH (21:00)
[2019-08-27] MEDS: traZODone 50 MG TABLET. PO SCH (21:00)
[2019-08-28] MEDS: PIPERACILLIN/TAZOBACTAM 3.375 GM in IV NORMAL SALINE 50ML 50 ML IV SCH ×2 (01:00→05:33)
[2019-08-28 02:55] VITALS: BP 118/61
[2019-08-28] MEDS: IV NORMAL SALINE 1000ML BAG 1,000 ML IV SCH (05:30)
[2019-08-28 07:00] VITALS: BP 102/68
[2019-08-28] MEDS: ASPIRIN ENTERIC COATED 81 MG TABLET.DR. PO SCH (08:59)
[2019-08-28] MEDS: LACTOBACILLUS RHAMNOSUS GG 1 CAPSULE. PO SCH (09:00)
[2019-08-28] MEDS: LOSARTAN POTASSIUM 50 MG TABLET. PO SCH (09:00)
[2019-08-28] MEDS: ALLOPURINOL 300 MG TABLET. PO SCH (09:00)
[2019-08-28] MEDS: TAMSULOSIN 0.4 MG CAP.ER.24H. PO SCH (09:00)
--- NOTE | 2019-08-28 09:44 | PDOC ---
Provider Note Provider Note Vascular surgery progress Pt seen and examined in room this am. He reports doing well, no complaints of groin pain or toe pain. He is resting in bed comfortably. Getting IV Zosyn this am. Ate breakfast without complaints/concerns. He had arteriogram yesterday O: VSS, afebrile Respiration non-labored Abdomen soft, nondistended, nontender Left groin site clean, dry and intact. No evidence of bleeding. Groin soft without hematoma Right foot warm, Dressing overlying second toe, clean dry and intact. Ulcer stable. Imaging: Reviewed arteriogram : with occluded right SFA, previously placed Rt JEANNINE and Lt SFA stents. Two vessel runoff to right foot. Unable to cross occluded SFA. Dr. 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 reconstitution above the knee, distal sfa with two vessel runoff. could not traverse director systems from above. Unsure degree to which wound is the result of vascular disease. If revascularization deemed necessary, could try retrograde endovascular approach, or bypass. Will defer to vascular surgery recs." A/P: Atherosclerosis with ulceration of the right lower extremity Chronic occlusion right SFA, not treatable with endovascular approach. I dis cussed this with the patient and we discussed options of revascularization, including right fem to above knee popliteal bypass. He is hesitant about surgery. We discussed this at length. I also discussed this with Dr. Mcfadden. We would like to give some time and see how the wound does, if it does not improve or heal we may need to be more aggressive. He can follow up with Dr. Mcfadden on 09/16 at 1140 at our [place] office location. Cont prophylactic PO abx upon discharge. Please get post op shoe for pt for ambulation. Continue ASA, statin. I discussed with Dr. Damon our plan. When considering major vascular surgery we typically require cardiac clearance, he noted patient had a normal stress test in April of this year and see's Dr. Bo regularly. He did not think it necessary to consult cardiology while patient is inpatient. I reviewed the stress test which notes pt is low risk for cardiac events. Thank you for involving us in his care, we will see him for follow up. Ok for discharge. SUSANNAH VIEIRA Aug 28, 2019 09:44
--- NOTE | 2019-08-28 09:45 | PDOC ---
PROGRESS NOTES Subjective Subjective feels better today Objective Objective Vital Signs Date Time Temp Pulse Resp B/P (MAP) Pulse Ox O2 Delivery O2 Flow Rate FiO2 08/28/19 09:00 61 102/68 08/28/19 07:00 98.1 16 99 Room Air 98.1 08/27/19 14:34 2.0 Intake and Output 08/28/19 07:00 Intake Total 340 ml Balance 340 ml Intake Oral 340 ml # Voids 4 Physical Exam Abdomen: Soft, No tenderness, Other (no evidence of palpable pulsatile abdominal mass) Heart: Regular rate, Normal S1, Normal S2 Extremities: Other (2+ femoral pulses bilaterally, intact biphasic posterior tibial Doppler signal on the right with a monophasic Doppler signal in the dorsalis pedis location, biphasic dorsalis pedis and posterior tibial Doppler signal in the left lower extremity) General: Alert, Oriented X3, Cooperative, No acute distress HEENT: EOMI, Mucous membr. moist/pink Lungs: Clear to auscultation, Normal air movement MUSCULOSKELETAL: Osteoarthritic changes both hands Neuro: Normal speech, Strength at 5/5 X4 ext, Normal tone, Sensation intact, Cranial nerves 3-12 NL Psych/Mental Status: Mental status NL, Mood NL Skin: Other (decubitus-type ulceration at the distal interphalangeal joint of the right second toe due to rubbing from the right first toe, skin discoloration and hyperpigmentation but no evidence of gangrenous changes) Assessment Assessment FINAL IMPRESSION: 1. Right second toe ulcer, possible osteo,? 2. Severe peripheral vascular disease, has a known history of peripheral vascular disease. 3. Coronary artery disease, stable; no angina; no ischemia. 4. Pacemaker for sick sinus syndrome. 5. Hypertension. 6. Arthritis. 7. Gout. PLAN: pt had arteriogram, good collaterals,could not do angioplasty. pt not interested with toe amputation for now. d/c home on augmentin for 7 days. spoke with family and vascular. At this time, wound culture, started on antibiotic, vancomycin and Zosyn. Vascular consult and x-ray of the toe, probably may need a limited bone scan and the patient is seen by Vascular and scheduled for arteriogram and maybe a vascular intervention to improve the blood flow and further recommendations to follow. Comment Review of Relevant I have reviewed the following items sachi (where applicable) has been applied. Labs Microbiology 08/26/19 Anaerobic/Aerobic Culture, Resulted Pending 08/26/19 Anaerobic Culture Result 1 (DANY), Resulted Pending 08/26/19 Aerobic Culture, Resulted Pending 08/26/19 Aerobic Culture Result 1 (DANY), Resulted Pending 08/26/19 Gram Stain - Final, Resulted 08/26/19 Gram Stain Result 1 (DANY) - Final, Resulted 08/26/19 Gram Stain Result 2 (DANY) - Final, Resulted Medications Current Medications Fentanyl Citrate (Fentanyl 2ml Vial) 100 mcg 1X ONCE IV Last administered on 08/27/19at 14:15; Start 08/27/19 at 14:15; Stop 08/27/19 at 14:26; Status DC Fentanyl Citrate (Fentanyl 2ml Vial) 100 mcg STK-MED ONCE .ROUTE ; Start 08/27/19 at 13:01; Stop 08/27/19 at 13:02; Status DC Heparin Sodium (Porcine) (Heparin Sodium) 10,000 unit STK-MED ONCE .ROUTE ; Start 08/27/19 at 13:02; Stop 08/27/19 at 13:02; Status DC Heparin Sodium/ Sodium Chloride 1,500 ml @ As Directed STK-MED ONCE .ROUTE ; Start 08/27/19 at 12:04; Stop 08/27/19 at 12:04; Status DC Heparin Sodium/ Sodium Chloride (HEPARIN for ARTERIAL LINE FLUSH) 1,000 unit 1X ONCE IART Last administered on 08/27/19at 14:15; Start 08/27/19 at 14:15; Stop 08/27/19 at 14:26; Status DC Heparin Sodium/ Sodium Chloride (HEPARIN for ARTERIAL LINE FLUSH) 1,000 unit 1X ONCE IART ; Start 08/27/19 at 14:15; Stop 08/27/19 at 14:26; Status DC Hydralazine HCl (Apresoline Inj) 10 mg 1X ONCE IVP ; Start 08/27/19 at 14:45; Stop 08/27/19 at 14:46; Status DC Hydralazine HCl (Apresoline Inj) 20 mg STK-MED ONCE .ROUTE ; Start 08/27/19 at 14:29; Stop 08/27/19 at 14:30; Status DC Iodixanol (Visipaque 320) 100 ml 1X ONCE IART Last administered on 08/27/19at 14:15; Start 08/27/19 at 14:15; Stop 08/27/19 at 14:26; Status DC Iodixanol (Visipaque 320) 100 ml STK-MED ONCE .ROUTE ; Start 08/27/19 at 12:03; Stop 08/27/19 at 12:04; Status DC Lactobacillus Rhamnosus (Culturelle) 1 cap BID PO Last administered on 08/28/19at 09:00; Start 08/27/19 at 21:00 Lidocaine HCl (Buffered Lidocaine 1%) 3 ml STK-MED ONCE .ROUTE ; Start 08/27/19 at 12:04; Stop 08/27/19 at 12:04; Status DC Lidocaine HCl (Buffered Lidocaine 1%) 9 ml 1X ONCE IJ Last administered on at 14:15; Start 08/27/19 at 14:15; Stop 08/27/19 at 14:26; Status DC Midazolam HCl (Versed) 1 mg 1X ONCE IV Last administered on 08/27/19at 14:15; Start 08/27/19 at 14:15; Stop 08/27/19 at 14:26; Status DC Midazolam HCl (Versed) 2 mg STK-MED ONCE .ROUTE ; Start 08/27/19 at 13:01; Stop 08/27/19 at 13:01; Status DC Vancomycin HCl (Vancomycin Trough Level) 1 each 1X ONCE MC ; Start 08/28/19 at 14:30; Stop 08/28/19 at 14:31 Vancomycin HCl 1 gm/Sodium Chloride 250 ml @ 250 mls/hr Q24H IV Last administered on 08/27/19at 23:00; Start 08/27/19 at 15:00 Vitals/I & O Vital Sign - Last 24 Hours 08/27/19 08/27/19 08/27/19 08/27/19 11:00 14:15 14:34 15:00 Temp 98.1 98.1 Pulse 61 62 66 Resp 16 18 18 B/P (MAP) 167/84 (111) 159/67 (97) Pulse Ox 98 95 97 99 O2 Delivery Room Air Nasal Cannula Nasal Cannula O2 Flow Rate 2.0 2.0 08/27/19 08/27/19 08/27/19 08/27/19 15:15 15:30 15:45 16:00 Pulse 64 68 66 84 B/P (MAP) 161/63 (95) 162/99 (120) 153/87 (109) 147/117 (127) 08/27/19 08/27/19 08/27/19 08/27/19 16:30 16:55 16:55 17:00 Pulse 64 75 75 65 B/P (MAP) 150/73 (98) 160/78 160/78 160/78 (105) 08/27/19 08/27/19 08/27/19 08/27/19 18:00 19:35 20:00 23:15 Temp 97.9 97.9 97.9 97.9 Pulse 66 62 66 Resp 18 18 B/P (MAP) 130/61 (84) 150/66 (94) 163/70 (101) Pulse Ox 99 100 O2 Delivery Room Air Room Air Room Air 08/28/19 08/28/19 08/28/19 02:55 07:00 09:00 Temp 98.1 98.1 98.1 98.1 Pulse 69 61 61 Resp 18 16 B/P (MAP) 118/61 (80) 102/68 (79) 102/68 Pulse Ox 96 99 O2 Delivery Room Air Room Air Intake and Output 08/27/19 08/27/19 08/28/19 15:00 23:00 07:00 Intake Total 340 ml Balance 340 ml GUILLE PINEDA MD Aug 28, 2019 09:45
--- NOTE | 2019-08-28 09:49 | SNU/HH DC ---
DISCHARGE WITH HOME HEALTH DISCHARGE INFORMATION: Discharge Date: Aug 28, 2019 Condition on Discharge: Stable CODE STATUS: Code Status: Full HOME HEALTH: Face to Face: I certify this patient is under my care and that I, or a nurse practitioner or manny ayala's cook's assistant working with me, had a face to face encounter that meets the physician face to face encounter requirements with this patient on [08/28/19]. Medical Complications: Other (pvd+toe ulcer) RN For Eval/Treatment: Yes Pt Meets Homebound Status: Unsteady balance w/ amb, POST DISCHARGE ORDERS: Activity Instructions for Disc: Activity as tolerated Weight Bearing Status after Di: As tolerated Wound/Incision Care: Change dressing CHECKS AFTER DISCHARGE: Checks after discharge: Check blood press - daily TREATMENT/EQUIPMENT ORDERS: Adaptive Equipment Issued: None CERTIFICATION STATEMENT: Certification Statement: Certification Statement: Based on the above finding, I certify that this patient is confined to the home and needs intermittent nursing home care, physical therapy and/or speech therapy, or continues to need occupational therapy.~ This patient is under my care, and I have initiated the establishment of the plan of care.~ This patient will be followed by myself or a community physician who will periodically review the plan of care. Home Meds Active Scripts Amoxicillin/Potassium Clav (AUGMENTIN 500-125 TABLET) 1 Each Tablet, 1 TAB PO BID for toe ulcer for 7 Days, #14 TAB 0 Refills Prov:GUILLE PINEDA MD 08/27/19 Atorvastatin Calcium (ATORVASTATIN CALCIUM) 40 Mg Tablet, 40 MG PO QHS for chol for 30 Days, #30 TAB Prov:GUILLE PINEDA MD 08/27/19 Reported Medications Tamsulosin Hcl (FLOMAX) 0.4 Mg Cap.er.24h, 1 CAP PO BID for BPH, #30 CAP 11 Refills 08/26/19 Tramadol Hcl (TRAMADOL HCL) 50 Mg Tablet, 50 MG PO Q6HRS PRN for PAIN, TAB 08/26/19 Trazodone Hcl (TRAZODONE HCL) 50 Mg Tablet, 1 TAB PO QHS for Sleep aide , #30 TAB 1 Refill 08/26/19 Aspirin (ASPIRIN) 325 Mg Tablet, 1 TAB PO DAILY for stroke prevention, #30 TAB 5 Refills 08/26/19 Allopurinol (ALLOPURINOL) 300 Mg Tablet, 1 TAB PO DAILY for gout, #30 TAB 5 Refills 08/26/19 Losartan Potassium (LOSARTAN POTASSIUM) 50 Mg Tablet, 50 MG PO DAILY for HYPERTENSION, TAB 08/26/19 Nitroglycerin (NITROGLYCERIN SubLingual) 0.4 Mg Tab.subl, 1 TAB SL UD, #25 TAB 3 Refills 04/19/16 Felodipine (FELODIPINE ER) 5 Mg Tab.er.24h, 1 TAB PO DAILY16, #30 TAB 5 Refills 04/19/16 Discontinued Reported Medications Tamsulosin Hcl (FLOMAX) 0.4 Mg Cap.er.24h, 1 CAP PO DAILY for BPH, #30 CAP 11 Refills 08/26/19 Temazepam (RESTORIL) 15 Mg Capsule, 15 MG PO HS PRN for INSOMNIA, CAP 06/29/17 Hydrocodone Bit/Acetaminophen (HYDROCODONE-APAP 10-325 ) 1 Each Tablet, 1 TAB PO PRN Q6HRS PRN for PAIN, TAB 0 Refills 06/29/17 Losartan/Hydrochlorothiazide (LOSARTAN-HCTZ 50-12.5 MG TAB) 1 Each Tablet, 1 TAB PO DAILY, #30 TAB 5 Refills 06/29/17 Tramadol Hcl (TRAMADOL HCL) 50 Mg Tablet, 50 MG PO Q6H PRN for PAIN, TAB 04/26/17 Aspirin (ASPIRIN) 325 Mg Tablet, 1 TAB PO DAILY, #30 TAB 5 Refills 04/19/16 Tamsulosin Hcl (TAMSULOSIN HCL) 0.4 Mg Cap.er.24h, 1 CAP PO DAILY, #30 CAP 5 Refills 04/19/16 Allopurinol (ALLOPURINOL) 300 Mg Tablet, 1 TAB PO DAILY, #30 TAB 5 Refills 04/19/16 [plendil] No Conflict Check 01/23/14 GUILLE PINEDA MD Aug 28, 2019 09:49
--- NOTE | 2019-08-28 09:55 | PDOC ---
Provider Note Provider Note Discharge summary dictated.#[id number]. GUILLE PINEDA MD Aug 28, 2019 09:55
[2019-08-28 11:00] VITALS: BP 116/67
--- NOTE | 2019-08-28 11:24 | DS ---
DATE OF DISCHARGE: 08/28/2019 REASON FOR ADMISSION TO THE HOSPITAL: 1. Right second toe ulcer. 2. Peripheral vascular disease. CONSULTATIONS: Dr. Herrera, Vascular. PROCEDURE DONE: Arteriogram. HOSPITAL COURSE: The patient is an 84-year-old male with history of pacemaker for sick sinus syndrome, peripheral vascular disease, has hammertoe and bunion with right big toe pressing on the right second toe, has developed ulcerations, skin breakdown and developing dark discoloration, who was admitted to hospital, was seen by Vascular. The patient had arteriogram and has developed some collaterals [id number] and could not do any angioplasty and it was thought to have enough blood flow for the wounds to heal. The patient was put on Augmentin after IV antibiotics for a day or two, vancomycin and Zosyn. Cultures so far growth negative. X-ray of the toe was done, report is pending. The patient was feeling better. He is not interested in an amputation of the toe or bypass to the leg. At the present time, he wanted to see the how the toe improves in the next couple of weeks. We will discharged on Augmentin, home health and to follow with Vascular. FINAL DIAGNOSES: 1. Right toe ulcer secondary to peripheral vascular disease. 2. Ulcer of bunion with right big toe pressing on the second toe, was given some pressure relief sleeve for the toe. 3. Peripheral vascular disease. 4. Chronic sick sinus syndrome, on pacemaker and benign prostatic hypertrophy, arthritis. DISPOSITION: Home with home health and similar for discharge medications. Follow up in the office in 1 week, Vascular in 2-3 weeks. GUILLE PINEDA MD DR: MELISSA/michelle JOB#: [id number] / [id number]
--- NOTE | 2019-08-28 12:43 | NUR ---
Discharge Note: [facility] [address] [place] [address] Discharge instructions and discharge home medications reviewed with Patient and a copy given. All questions have been answered and understanding verbalized. The following instructions and handouts were given: Diet, activity, medication list and follow up instructions provided to patient and patient's . Discontinued lines and drains: Peripheral IV discontinued and catheter intact. Patient discharged to Home w/services with Family Member via Wheelchair
--- NOTE | 2019-08-28 17:18 | RAD ---
3 view study right foot Clinical indications: Second toe ulcer. FINDINGS: Soft tissue swelling of the second digit is seen. Due to the hammertoe deformity of the second through fifth digits, the distal aspect of the second digit is difficult to visualize in both views. Therefore, evaluation for osteomyelitis cannot be completed. No lytic process is seen elsewhere. No acute fracture is evident. There is lateral subluxation of the first proximal phalanx with respect to the first metatarsal bone. Bunion is seen. Flattening of the plantar arch is seen. Plantar spur of the calcaneus is seen. IMPRESSION: Due to the hammertoe deformity of the second through fifth digits, evaluation for osteomyelitis of the distal tip of the second digit cannot be completed radiographically. Therefore, MRI study may be needed if there is strong clinical concern for osteomyelitis. Electronically signed by: Kranthi Henry MD (08/28/2019 5:15 PM) [id number]
== END 2019-08-28 12:45 | disposition home health service (06) | DRG 594 ==
LOC: 4 NORTH 10:03
PROVIDERS: ADMIT Internal Medicine; ATTEND Internal Medicine
PROC: B410YZZ Fluoroscopy of Abdominal Aorta using Other Contrast (ICD-10-PCS; principal; 2019-08-27)
PROC: B41JYZZ Fluoroscopy of Other Lower Arteries using Other Contrast (ICD-10-PCS; 2019-08-27)
DX: L97.519 Non-pressure chronic ulcer of other part of right foot with unspecified severity (principal); I70.201 Unspecified atherosclerosis of native arteries of extremities, right leg; M19.90 Unspecified osteoarthritis, unspecified site; I25.10 Atherosclerotic heart disease of native coronary artery without angina pectoris; I10 Essential (primary) hypertension; M21.00 Valgus deformity, not elsewhere classified, unspecified site; E78.5 Hyperlipidemia, unspecified; I49.5 Sick sinus syndrome; M10.9 Gout, unspecified; N40.0 Benign prostatic hyperplasia without lower urinary tract symptoms; Z79.899 Other long term (current) drug therapy; Z87.891 Personal history of nicotine dependence; Z95.0 Presence of cardiac pacemaker; Z82.49 Family history of ischemic heart disease and other diseases of the circulatory system
CPT/HCPCS: 36246; 36415; 71046; 73620; 75625; 75716; 76937; 80053; 85027; 85610; 87071; 87075; 90471; 90686; 93005; 99152; 99153; C1713; C1760; C1769; C1892; C1894; J1644; J2250; J2543; J3010; J3370; J7030; J7040; J7050; Q9967; 97116; 97535; G0378

== ENCOUNTER 2019-09-18 09:55 | Day surgery (SDC) | payer MEDICARE, OTHER ==
[~2019-09-18] VITALS: Ht 188 cm; Wt 78.0 kg
[~2019-09-18 09:55] MED LIST changes: +AMOX1TAB58 PO; +ATOR40TA59 PO; +BACITRACIN 50,000 UNIT in IV NORMAL SALINE 500ML BAG 500 ML IRR ONE; +HYDROmorphone 2 MG/ML VIAL IV PRN; +IV RINGERS,LACTATED 1000ML 1,000 ML IV SCH; +LOSA-73 PO; +MORPHINE SULFATE 2 MG/ML VIAL. IV PRN; +ONDANSETRON PF 4 MG/2 ML VIAL. IV PRN; +PROCHLORPERAZINE 10 MG/2 ML VIAL. IV PRN; +TAMS0.4C97 PO; +TRAZ-118 PO; +fentaNYL PF VIAL 100 MCG/2 ML VIAL IV PRN
[2019-09-18] MEDS ORDERED: ceFAZolin 2GM PREMIX 2 GM/50 ML BAG IV ONE (10:00)
[2019-09-18] MEDS ORDERED: ONDANSETRON PF 4 MG/2 ML VIAL. ONE (10:09)
[2019-09-18] MEDS ORDERED: PROPOFOL 20 ML IV ONE (10:09)
[2019-09-18] MEDS ORDERED: LIDOCAINE 2% PF 5 ML VIAL. ONE (10:09)
[2019-09-18] MEDS ORDERED: DEXAMETHASONE SOD PHOS 4 MG/ML VIAL ONE (10:09)
[2019-09-18] MEDS ORDERED: FAMOTIDINE 20 MG/2 ML VIAL ONE (10:09)
[2019-09-18] MEDS ORDERED: fentaNYL PF VIAL 100 MCG/2 ML VIAL ONE ×2 (10:10→10:36)
[2019-09-18] MEDS ORDERED: ePHEDrine PF IN SALINE 50 MG/10 ML SYRINGE. IV ONE (10:22)
[2019-09-18 11:13] LABS: BASO % 1 % (0-3); EOS # 0.1 x10^3/uL (0.0-0.7); EOS % 3 % (0-3); HEMOGLOBIN 10.7 g/dL (13.0-17.5); LYMPH # 1.5 x10^3/uL (1.0-4.8); LYMPH % 27 % (24-48); MEAN CORPUSCULAR HEMOGLOBIN 29 pg (25-35); MEAN CORPUSCULAR HGB CONC 33 g/dL (31-37); MEAN CORPUSCULAR VOLUME 87 fL (79-100); MONO # 0.4 x10^3/uL (0.0-1.1); MONO % 6 % (0-9); NEUT # 3.6 x10^3/uL (1.8-7.7); NEUT % 63 % (31-73); PLATELET COUNT 164 x10^3/uL (140-400); RED CELL DISTRIBUTION WIDTH 14.3 % (11.5-14.5); WHITE BLOOD COUNT 5.6 x10^3/uL (4.0-11.0)
[2019-09-18 11:28] LABS: CALCIUM 8.8 mg/dL (8.5-10.1); GFR 85.9; POTASSIUM 3.5 mmol/L (3.5-5.1)
[2019-09-18] MEDS ORDERED: LIDOCAINE 1% 20 ML VIAL. ONE (12:15)
--- NOTE | 2019-09-18 12:43 | PDOC ---
BRIEF OPERATIVE NOTE Date: Sep 18, 2019 Pre-Op Diagnosis Osteomyelitis right 2nd toe Post-Op Diagnosis Same Procedure Performed Right 2nd toe amputation Surgeon Brendan De Anda DO, JOSE Anesthesia Type: General Blood Loss Minimal Complications None BRENDAN DE ANDA DO Sep 18, 2019 12:43
--- NOTE | 2019-09-18 13:14 | OP ---
DATE OF SURGERY: 09/18/2019 ATTENDING SURGEON: Brendan De Anda DO PREOPERATIVE DIAGNOSIS: Osteomyelitis of the right second toe. POSTOPERATIVE DIAGNOSIS: Osteomyelitis of the right second toe. PROCEDURE: Right second toe amputation through the metatarsophalangeal joint. ANESTHESIA: General. SPECIMENS: Right second toe. COMPLICATIONS: None. PREOPERATIVE INDICATIONS: The patient is a pleasant 84-year-old male, who had gangrenous changes of his right second toe with evidence of osteomyelitis. I consented him for right second toe amputation. He understood all risks, benefits, and alternatives of the procedure and his family was also with him during the consent process. All questions were answered to their satisfaction. DESCRIPTION OF PROCEDURE: The patient was brought to the operating suite and placed in supine position. After establishing appropriate anesthesia, the patient was prepped and draped in sterile fashion. Next, a timeout procedure was performed. It was confirmed that the patient did receive appropriate perioperative antibiotics and the correct operative site was marked and draped. Following this, 1% lidocaine was infiltrated at the base of the toe and then a ray amputation incision was made, carried through skin and subcutaneous tissue. The toe was disarticulated and handed off the field. Next, a rongeur forceps was used to remove the remainder of the proximal phalanx up to the metatarsophalangeal joint. All tendinous material was also appropriately debrided and removed. The patient had healthy bleeding from the wound site. After confirming hemostasis, the wound was irrigated with antibiotic-impregnated solution and then the skin was closed using interrupted 3-0 nylon suture. Sterile dressing was subsequently placed. The patient tolerated the procedure well and was transferred to the postanesthesia care unit in stable condition. BRENDAN DE ANDA DO DR: Dayanara JOB#: [id number] / [id number]
[2019-09-18 13:30] VITALS: BP 151/71
--- NOTE | 2019-09-20 22:06 | PATHOLOGY ---
[facility] Accession Number: [id number] . 01 Material submitted: . toe - RIGHT 2ND TOE. Modifiers: right, second . 01 Clinical history: . Osteomyelitis . 02 Diagnosis: "Right second toe", amputation: - Skin and subcutaneous tissue with acute and chronic inflammation, granulation tissue, fibrosis and pseudoepitheliomatous hyperplasia. - Decalcified bone with focal fibrosis, bony remodeling and mild predominantly chronic inflammation. (See comment) . (CLW:[facility]; 09/20/2019) [facility] 09/20/2019 1326 Local . 02 Comment: The bony changes may represent a component of chronic osteomyelitis. Clinical and radiographic correlation is recommended. . (CLW:[place]; 09/20/2019) . 02 Electronically signed: . Delicia Sarkar MD, Pathologist NPI- [id number] . 01 Gross description: . The specimen is received in formalin, labeled "Serge Choi, right second toe". Received is an amputated digit measuring 3.8 x 2.5 x 1.8 cm in greatest dimensions. The bone margin is smooth and concave in appearance, consistent with disarticulation. The bone and soft tissue margins are inked black. The nail is present displaying a light vu to light brown and thickened appearance. The epidermal surface is overall dusky owens-brown and flaky in appearance. On the medial aspect of the specimen, there is a well-circumscribed, irregular in contour, focally crusted and owens-brown lesion measuring 1.2 x 1.2 cm, which is 0.8 cm from the closest skin margin. The specimen is submitted representatively as follows: . A1 horizontal cross-section through lesion to include underlying bone, following decalcification A2 longitudinal cross-section through bone margin, following decalcification. ([facility]; 09/19/2019) QAC/QAC 09/20/2019 2138 Local . 02 Pathologist provided ICD-10: L98.9, L90.5, M86.671 . 02 CPT . 450532, 211754 Specimen Comment: A courtesy copy of this report has been sent to [phone], [phone] Specimen Comment: [id number] Specimen Comment: Report sent to ,DR JAMES / DR PINEDA Performed at: 01 [facility] [address] [facility] [address], [place] [id number] MD Moreno Gutiérrez MD Phone: [phone] Performed at: 02 [facility] [address] [place], [place] [id number] MD Jakob Mcdonough MD Phone: [phone]
== END 2019-09-18 13:52 | disposition home or self-care (01) ==
LOC: SURG 09:55
PROVIDERS: ATTEND Surgery Vascular Surgery
DX: M86.8X7 Other osteomyelitis, ankle and foot (principal); I96 Gangrene, not elsewhere classified; E78.5 Hyperlipidemia, unspecified; F41.9 Anxiety disorder, unspecified; I12.9 Hypertensive chronic kidney disease with stage 1 through stage 4 chronic kidney disease, or unspecified chronic kidney disease; N18.3 Chronic kidney disease, stage 3 (moderate); Z79.82 Long term (current) use of aspirin; Z79.891 Long term (current) use of opiate analgesic; Z79.899 Other long term (current) drug therapy; Z87.891 Personal history of nicotine dependence; Z95.0 Presence of cardiac pacemaker; Z98.890 Other specified postprocedural states; Z82.61 Family history of arthritis; Z82.3 Family history of stroke; Z83.3 Family history of diabetes mellitus; Z82.49 Family history of ischemic heart disease and other diseases of the circulatory system
CPT/HCPCS: 28820; 36415; 80048; 85025; 88305; 88311; A7015; J0171; J0696; J2001; J2405; J2704; J3010; J3490; J7040; J1100; A4461

== ENCOUNTER 2019-11-20 15:05 | Inpatient (IN) | payer MEDICARE, OTHER ==
[~2019-11-20] VITALS: Ht 182.9 cm; Wt 76.8 kg
[~2019-11-20 15:05] MED LIST changes: -BACITRACIN 50,000 UNIT in IV NORMAL SALINE 500ML BAG 500 ML IRR ONE; -FELO5TAB PO; +FELO5TAB4 PO; -HYDROmorphone 2 MG/ML VIAL IV PRN; -IV RINGERS,LACTATED 1000ML 1,000 ML IV SCH; -MORPHINE SULFATE 2 MG/ML VIAL. IV PRN; -ONDANSETRON PF 4 MG/2 ML VIAL. IV PRN; -PROCHLORPERAZINE 10 MG/2 ML VIAL. IV PRN; -fentaNYL PF VIAL 100 MCG/2 ML VIAL IV PRN
[2019-11-20] MEDS ORDERED: methylPREDNISolone SOD SUCC PF 125 MG/2 ML VIAL. IV ONE (16:00)
[2019-11-20] MEDS ORDERED: IPRATRPIUM/ALBUTEROL 0.5/2.5MG 3 ML NEBU. NEB ONE ×2 (16:00→20:00)
--- NOTE | 2019-11-20 16:06 | PHYS DOC ---
Past Medical History Past Medical History: Hypertension Additional Past Medical Histor: bradycardia (FRACISCO JAMES APRN) Past Surgical History: Pacemaker (FRACISCO JAMES APRN) Alcohol Use: None Drug Use: None (FRACISCO JAMES APRN) Adult General Chief Complaint Chief Complaint: SHORTNESS OF BREATH HPI HPI Patient is a 84 year old male with history of hypertension, occasional smoker who presents to the ED today complaining of intermittent episodes of shortness of breath for a couple days. is not sure how long this has been going on but it sounds like less than a week. also reports patient has been more forgetful especially around the house patient denies any chest pain. reports patient has a cough. (FRACISCO JAMES APRN) Review of Systems Review of Systems Constitutional: Denies fever or chills [] Eyes: Denies change in visual acuity, redness, or eye pain [] HENT: Denies nasal congestion or sore throat [] Respiratory:Reports cough and shortness of breath [] Cardiovascular: No additional information not addressed in HPI [] GI: Denies abdominal pain, nausea, vomiting, bloody stools or diarrhea [] : Denies dysuria or hematuria [] Musculoskeletal: Denies back pain or joint pain [] Integument: Denies rash or skin lesions [] Neurologic:Reports forgetfulness. Denies headache, focal weakness or sensory changes [] All other systems were reviewed and found to be within normal limits, except as documented in this note. (FRACISCO JAMES APRN) Current Medications Current Medications Current Medications Medications (Trade) Dose Ordered Sig/Kalyn Start Time Stop Time Status Last Admin Dose Admin Albuterol/ Ipratropium (Duoneb) 3 ml 1X ONCE 11/20/19 16:00 11/20/19 16:13 DC 11/20/19 16:41 3 ML Aspirin (Adilson Aspirin) 325 mg 1X ONCE 11/20/19 17:45 11/20/19 17:46 DC 11/20/19 18:22 325 MG Furosemide (Lasix) 20 mg 1X ONCE 11/20/19 18:30 11/20/19 18:31 DC 11/20/19 19:09 20 MG Methylprednisolone Sodium Succinate (SOLU-Medrol 125MG VIAL) 125 mg 1X ONCE 11/20/19 16:00 11/20/19 16:13 DC 11/20/19 16:28 125 MG (KADY THORPE DO) Allergies Allergies Allergies Coded Allergies Type Severity Reaction Last Updated Verified No Known Drug Allergies 09/18/19 No (KADY THORPE DO) Physical Exam Physical Exam Constitutional: Well developed, well nourished, no acute distress, non-toxic appearance. [] HENT: Normocephalic, atraumatic, bilateral external ears normal, oropharynx moist, no oral exudates, nose normal. [] Eyes: PERRLA, EOMI, conjunctiva normal, no discharge. [] Neck: Normal range of motion, no tenderness, supple, no stridor. [] Cardiovascular:Paced rhythm, Lungs & Thorax: Bilateral breath sounds clear to auscultation [] Abdomen: Bowel sounds normal, soft, no tenderness, no masses, no pulsatile masses. [] Skin: Warm, dry, no erythema, no rash. [] Back: No tenderness, no CVA tenderness. [] Extremities: No tenderness, no cyanosis, no clubbing, ROM intact, +2 BLE edema. [] Neurologic: Alert and oriented X 2, normal motor function, normal sensory function, no focal deficits noted. Cranial nerves II through XII intact Psychologic: Affect normal, judgement normal, mood normal. [] (FRACISCO JAMES APRN) Current Patient Data Vital Signs Vital Signs Date Time Temp Pulse Resp B/P (MAP) Pulse Ox O2 Delivery O2 Flow Rate FiO2 11/20/19 19:15 74 16 149/109 (122) 95 11/20/19 17:15 Room Air 11/20/19 15:40 98.1 98.1 (KADY THORPE DO) Lab Values Laboratory Tests Test 11/20/19 16:00 11/20/19 16:17 White Blood Count 5.4 x10^3/uL (4.0-11.0) Red Blood Count 3.53 x10^6/uL (4.30-5.70) L Hemoglobin 10.3 g/dL (13.0-17.5) L Hematocrit 30.5 % (39.0-53.0) L Mean Corpuscular Volume 86 fL (79-100) Mean Corpuscular Hemoglobin 29 pg (25-35) Mean Corpuscular Hemoglobin Concent 34 g/dL (31-37) Red Cell Distribution Width 15.3 % (11.5-14.5) H Platelet Count 153 x10^3/uL (140-400) Neutrophils (%) (Auto) 69 % (31-73) Lymphocytes (%) (Auto) 21 % (24-48) L Monocytes (%) (Auto) 8 % (0-9) Eosinophils (%) (Auto) 2 % (0-3) Basophils (%) (Auto) 2 % (0-3) Neutrophils # (Auto) 3.7 x10^3/uL (1.8-7.7) Lymphocytes # (Auto) 1.1 x10^3/uL (1.0-4.8) Monocytes # (Auto) 0.4 x10^3/uL (0.0-1.1) Eosinophils # (Auto) 0.1 x10^3/uL (0.0-0.7) Basophils # (Auto) 0.1 x10^3/uL (0.0-0.2) Prothrombin Time 14.6 SEC (11.7-14.0) H Prothrombin Time INR 1.2 (0.8-1.1) H Activated Partial Thromboplast Time 30 SEC (24-38) Sodium Level 141 mmol/L (136-145) Potassium Level 3.6 mmol/L (3.5-5.1) Chloride Level 105 mmol/L (98-107) Carbon Dioxide Level 25 mmol/L (21-32) Anion Gap 11 (6-14) Blood Urea Nitrogen 13 mg/dL (8-26) Creatinine 1.1 mg/dL (0.7-1.3) Estimated GFR (Cockcroft-Gault) 77.0 BUN/Creatinine Ratio 12 (6-20) Glucose Level 82 mg/dL (70-99) Lactic Acid Level 1.4 mmol/L (0.4-2.0) Calcium Level 8.9 mg/dL (8.5-10.1) Magnesium Level 1.9 mg/dL (1.8-2.4) Total Bilirubin 1.0 mg/dL (0.2-1.0) Aspartate Amino Transferase (AST) 50 U/L (15-37) H Alanine Aminotransferase (ALT) 114 U/L (16-63) H Alkaline Phosphatase 125 U/L (46-116) H Creatine Kinase 154 U/L (39-308) Creatine Kinase MB (Mass) 3.0 ng/mL (0.0-3.6) Creatine Kinase MB Relative Index 1.9 % (0-4) Troponin I Quantitative 0.070 ng/mL (0.000-0.055) NW-Gnl-Y-Type Natriuretic Peptide 9396 pg/mL (0-449) H Total Protein 7.1 g/dL (6.4-8.2) Albumin 3.5 g/dL (3.4-5.0) Albumin/Globulin Ratio 1.0 (1.0-1.7) Procalcitonin < 0.10 ng/mL (0.00-0.10) Thyroid Stimulating Hormone (TSH) 2.657 uIU/mL (0.358-3.74) Influenza Type A Antigen Negative (NEGATIVE) Influenza Type B Antigen Negative (NEGATIVE) Laboratory Tests 11/20/19 16:00 Laboratory Tests 11/20/19 16:00 Microbiology 11/20/19 Blood Culture - Preliminary, Resulted NO GROWTH AFTER 2 DAYS (KADY THORPE DO) Lab Values Laboratory Tests Test 11/20/19 16:00 11/20/19 16:17 White Blood Count 5.4 x10^3/uL (4.0-11.0) Red Blood Count 3.53 x10^6/uL (4.30-5.70) L Hemoglobin 10.3 g/dL (13.0-17.5) L Hematocrit 30.5 % (39.0-53.0) L Mean Corpuscular Volume 86 fL (79-100) Mean Corpuscular Hemoglobin 29 pg (25-35) Mean Corpuscular Hemoglobin Concent 34 g/dL (31-37) Red Cell Distribution Width 15.3 % (11.5-14.5) H Platelet Count 153 x10^3/uL (140-400) Neutrophils (%) (Auto) 69 % (31-73) Lymphocytes (%) (Auto) 21 % (24-48) L Monocytes (%) (Auto) 8 % (0-9) Eosinophils (%) (Auto) 2 % (0-3) Basophils (%) (Auto) 2 % (0-3) Neutrophils # (Auto) 3.7 x10^3/uL (1.8-7.7) Lymphocytes # (Auto) 1.1 x10^3/uL (1.0-4.8) Monocytes # (Auto) 0.4 x10^3/uL (0.0-1.1) Eosinophils # (Auto) 0.1 x10^3/uL (0.0-0.7) Basophils # (Auto) 0.1 x10^3/uL (0.0-0.2) Prothrombin Time 14.6 SEC (11.7-14.0) H Prothrombin Time INR 1.2 (0.8-1.1) H Activated Partial Thromboplast Time 30 SEC (24-38) Sodium Level 141 mmol/L (136-145) Potassium Level 3.6 mmol/L (3.5-5.1) Chloride Level 105 mmol/L (98-107) Carbon Dioxide Level 25 mmol/L (21-32) Anion Gap 11 (6-14) Blood Urea Nitrogen 13 mg/dL (8-26) Creatinine 1.1 mg/dL (0.7-1.3) Estimated GFR (Cockcroft-Gault) 77.0 BUN/Creatinine Ratio 12 (6-20) Glucose Level 82 mg/dL (70-99) Lactic Acid Level 1.4 mmol/L (0.4-2.0) Calcium Level 8.9 mg/dL (8.5-10.1) Magnesium Level 1.9 mg/dL (1.8-2.4) Total Bilirubin 1.0 mg/dL (0.2-1.0) Aspartate Amino Transferase (AST) 50 U/L (15-37) H Alanine Aminotransferase (ALT) 114 U/L (16-63) H Alkaline Phosphatase 125 U/L (46-116) H Creatine Kinase 154 U/L (39-308) Creatine Kinase MB (Mass) 3.0 ng/mL (0.0-3.6) Creatine Kinase MB Relative Index 1.9 % (0-4) Troponin I Quantitative 0.070 ng/mL (0.000-0.055) DU-Lwa-G-Type Natriuretic Peptide 9396 pg/mL (0-449) H Total Protein 7.1 g/dL (6.4-8.2) Albumin 3.5 g/dL (3.4-5.0) Albumin/Globulin Ratio 1.0 (1.0-1.7) Procalcitonin < 0.10 ng/mL (0.00-0.10) Thyroid Stimulating Hormone (TSH) 2.657 uIU/mL (0.358-3.74) Influenza Type A Antigen Negative (NEGATIVE) Influenza Type B Antigen Negative (NEGATIVE) Laboratory Tests 11/20/19 16:00 Laboratory Tests 11/20/19 16:00 (FRACISCO JAMES APRN) EKG EKG [address] Meeks sinus rhythm HR 71 no STEMI (FRACISCO JAMES APRN) Radiology/Procedures Radiology/Procedures []PROCEDURE: PORTABLE CHEST 1V AP chest. HISTORY: Short of air AP view was taken of the chest. There is arthritis in both shoulders. There is a pacemaker on the left with atrial and ventricular pacing leads without change. There are no acute infiltrates. There is scarring in both lung bases without change. There are no acute infiltrates. IMPRESSION: 1. Linear basilar scarring. 2. No acute infiltrates. Electronically signed by: Gage Crowe MD (11/20/2019 4:35 PM) [facility] DICTATED and SIGNED BY: GAGE CROWE MD DATE: 11/20/19 1635 PROCEDURE: CT HEAD WO CONTRAST EXAM: Head CT without contrast. HISTORY: Confusion. TECHNIQUE: Computed tomographic images of the head were obtained without contrast. *One or more of the following individualized dose reduction techniques were utilized for this examination: 1. Automated exposure control. 2. Adjustment of the mA and/or kV according to patient size. 3. Use of iterative reconstruction technique. COMPARISON: None. FINDINGS: There is no acute or subacute extra-axial or intraparenchymal hemorrhage. There is no mass effect or midline shift. There is no hydrocephalus. There are areas of decreased attenuation within the cerebral white matter, nonspecific and likely related to chronic small vessel disease. There is mild cerebral volume loss. There is a chronic lacunar infarct within the right frontal periventricular white matter adjacent to the right caudate nucleus. There is a metallic foreign body lateral to the right lateral orbital wall. The mastoid air cells are clear. The paranasal sinuses are clear. There is evidence of lens surgery. There is calcified plaque within the distal internal carotid arteries. IMPRESSION: 1. No acute intracranial finding. Note is made that MRI is more sensitive for acute infarction. 2. Decreased attenuation within the cerebral white matter, likely due to chronic small vessel disease. There is also a suspected tiny chronic lacunar infarct within the right frontal periventricular white matter along the caudate nucleus. 3. Cerebral volume loss. Electronically signed by: Dilcia Saab MD (11/20/2019 4:44 PM) [facility] DICTATED and SIGNED BY: DILCIA SAAB MD DATE: 11/20/19 1647 (FRACISCO JAMES APRN) Course & Med Decision Making Course & Med Decision Making Pertinent Labs and Imaging studies reviewed. (See chart for details) This is a 84-year-old male patient presenting to the ED today complaining of shortness of breath for couple days. also reports patient has been more forgetful at home. Patient is on occasional smoker, was advised to consider smoking cessation CT of the head is negative, chest x-ray interpreted by radiologist as negative. EKG is negative CBC with normal WBC, hemoglobin 10.3, hematocrit 30.5, BNP 9360, patient was given 1 dose of Lasix Troponin 0.070, patient has no chest pain was given Aspirin-spoke with Dr.k baron who will f/u with patient Spoke with Dr. Dailey who accepted patient for admission (FRACISCO JAMES APRN) Dragon Disclaimer Dragon Disclaimer This electronic medical record was generated, in whole or in part, using a voice recognition dictation system. (FRACISCO JAMES APRN) Departure Departure Impression: Primary Impression: Smoking addiction Additional Impressions: CHF (congestive heart failure) Elevated troponin Altered mental status Disposition: 09 ADMITTED INPATIENT Condition: STABLE Referrals: GUILLE PINEDA MD (PCP) Scripts Metoprolol Succinate (TOPROL XL) 25 Mg Tab.er.24h 1 TAB PO DAILY for htn for 30 Days, #30 TAB 0 Refills Prov: ABBY DAILEY MD 11/22/19 Attending Signature Attending Signature I have reviewed the PA/MANAGER OF OPERATIONS's note and plan of care. I was available for consultation as needed at all times during the patient's visit in the emergency department. I agree with the clinical impression, plan and disposition. (KADY THORPE DO) Problem Qualifiers Additional Impressions: CHF (congestive heart failure) Heart failure type: unspecified Heart failure chronicity: acute Qualified Codes: I50.9 - Heart failure, unspecified Altered mental status Altered mental status type: unspecified Qualified Codes: R41.82 - Altered mental status, unspecified MUTUNGA,FRACISCO CUMMINS Nov 20, 2019 16:06 KADY THORPE DO Nov 22, 2019 19:31
[2019-11-20 16:12] LABS: BASO # 0.1 x10^3/uL (0.0-0.2); BASO % 2 % (0-3); EOS # 0.1 x10^3/uL (0.0-0.7); EOS % 2 % (0-3); HEMATOCRIT 30.5 % (39.0-53.0); HEMOGLOBIN 10.3 g/dL (13.0-17.5); LYMPH # 1.1 x10^3/uL (1.0-4.8); LYMPH % 21 % (24-48); MEAN CORPUSCULAR HEMOGLOBIN 29 pg (25-35); MEAN CORPUSCULAR HGB CONC 34 g/dL (31-37); MEAN CORPUSCULAR VOLUME 86 fL (79-100); MONO # 0.4 x10^3/uL (0.0-1.1); MONO % 8 % (0-9); NEUT # 3.7 x10^3/uL (1.8-7.7); NEUT % 69 % (31-73); PLATELET COUNT 153 x10^3/uL (140-400); RED BLOOD COUNT 3.53 x10^6/uL (4.30-5.70); RED CELL DISTRIBUTION WIDTH 15.3 % (11.5-14.5); WHITE BLOOD COUNT 5.4 x10^3/uL (4.0-11.0)
[2019-11-20 16:28] LABS: PROTHROMBIN TIME PATIENT 14.6 SEC (11.7-14.0)
[2019-11-20 16:36] LABS: CALCIUM 8.9 mg/dL (8.5-10.1); CREATININE 1.1 mg/dL (0.7-1.3); POTASSIUM 3.6 mmol/L (3.5-5.1)
--- NOTE | 2019-11-20 16:38 | RAD ---
AP chest. HISTORY: Short of air AP view was taken of the chest. There is arthritis in both shoulders. There is a pacemaker on the left with atrial and ventricular pacing leads without change. There are no acute infiltrates. There is scarring in both lung bases without change. There are no acute infiltrates. IMPRESSION: 1. Linear basilar scarring. 2. No acute infiltrates. Electronically signed by: Gage Crowe MD (11/20/2019 4:35 PM) [facility]
--- NOTE | 2019-11-20 16:47 | RAD ---
EXAM: Head CT without contrast. HISTORY: Confusion. TECHNIQUE: Computed tomographic images of the head were obtained without contrast. *One or more of the following individualized dose reduction techniques were utilized for this examination: 1. Automated exposure control. 2. Adjustment of the mA and/or kV according to patient size. 3. Use of iterative reconstruction technique. COMPARISON: None. FINDINGS: There is no acute or subacute extra-axial or intraparenchymal hemorrhage. There is no mass effect or midline shift. There is no hydrocephalus. There are areas of decreased attenuation within the cerebral white matter, nonspecific and likely related to chronic small vessel disease. There is mild cerebral volume loss. There is a chronic lacunar infarct within the right frontal periventricular white matter adjacent to the right caudate nucleus. There is a metallic foreign body lateral to the right lateral orbital wall. The mastoid air cells are clear. The paranasal sinuses are clear. There is evidence of lens surgery. There is calcified plaque within the distal internal carotid arteries. IMPRESSION: 1. No acute intracranial finding. Note is made that MRI is more sensitive for acute infarction. 2. Decreased attenuation within the cerebral white matter, likely due to chronic small vessel disease. There is also a suspected tiny chronic lacunar infarct within the right frontal periventricular white matter along the caudate nucleus. 3. Cerebral volume loss. Electronically signed by: Dilcia Saini MD (11/20/2019 4:44 PM) [place] [id number]
[2019-11-20 16:51] LABS: ALBUMIN 3.5 g/dL (3.4-5.0); MAGNESIUM 1.9 mg/dL (1.8-2.4); TOTAL PROTEIN 7.1 g/dL (6.4-8.2)
[2019-11-20 17:11] LABS: INFLUENZA A PATIENT NEGATIVE (NEGATIVE); INFLUENZA B PATIENT NEGATIVE (NEGATIVE)
[2019-11-20] MEDS ORDERED: ASPIRIN 325 MG TABLET PO ONE (17:45)
[2019-11-20] MEDS ORDERED: FUROSEMIDE 20 MG/2 ML VIAL. IVP ONE (18:30)
[2019-11-20] MEDS ORDERED: ACETAMINOPHEN 325 MG TABLET. PO PRN (20:15)
[2019-11-20] MEDS ORDERED: MORPHINE SULFATE 2 MG/ML VIAL. IV PRN (20:15)
[2019-11-20] MEDS ORDERED: NITROGLYCERIN SUBLINGUAL 0.4 MG BOTTLE OF 25. SL PRN (20:15)
[2019-11-20] MEDS ORDERED: ONDANSETRON PF 4 MG/2 ML VIAL. IV PRN (20:15)
[2019-11-20 20:31] LABS: BILIRUBIN,URINE NEGATIVE (NEG); CLARITY,URINE CLEAR; COLOR,URINE YELLOW; NITRITE,URINE NEGATIVE (NEG); PH,URINE 5.5; PROTEIN,URINE NEGATIVE (NEG-TRACE); UROBILINOGEN,URINE 0.2 mg/dL (0.2 mg/dL)
[2019-11-20 20:38] LABS: AMPHETAMINE/METHAMPHETAMINE NEG (NEG); BARBITURATES NEG (NEG); BENZODIAZEPINES NEG (NEG); CANNABINOIDS NEG (NEG); COCAINE NEG (NEG); METHADONE NEG (NEG); OPIATES NEG (NEG); PHENCYCLIDINE NEG (NEG)
[2019-11-20 20:41] LABS: BACTERIA,URINE 0 /HPF (0-FEW); RBC,URINE RARE /HPF (0-2); SQUAMOUS EPITHELIAL CELL,UR OCC /LPF; WBC,URINE OCC /HPF (0-4)
--- NOTE | 2019-11-20 20:56 | RAD ---
AP chest. HISTORY: Cough, aspiration AP view was taken of the chest. Heart is enlarged. There is arthritis in both shoulders. There is hypertrophic change in the spine. There is linear scarring or atelectasis in the lung bases. There are mild hazy basilar infiltrates or atelectasis with mild worsening. Pacemaker is unchanged. IMPRESSION: 1. Mild hazy basilar atelectasis or infiltrates with mild increase. Electronically signed by: Gage Crowe MD (11/20/2019 8:53 PM) [facility]
[2019-11-20] MEDS ORDERED: cloNIDine HCL 0.1 MG TABLET PO PRN (21:15)
[2019-11-20] MEDS ORDERED: cefTRIAXone IV Push 1 GM VIAL. IVP ONE (21:30)
--- NOTE | 2019-11-20 23:00 | NUR ---
Admit from ED via [facility]. Alert. Confused. VSS. Family at his side. Orientated to room and call light. Reviewed POC to include lab draws such as troponin and getting out of bed with assist. Patient and family verbalized understanding. Patient resting in bed with call light at hand. Bed alarm on.
[2019-11-20 23:34] VITALS: BP 174/90
[2019-11-21 03:26] VITALS: BP 174/94
[2019-11-21 05:11] LABS: BASO % 0 % (0-3); EOS % 0 % (0-3); HEMATOCRIT 33.2 % (39.0-53.0); LYMPH # 0.6 x10^3/uL (1.0-4.8); LYMPH % 18 % (24-48); MEAN CORPUSCULAR HEMOGLOBIN 29 pg (25-35); MEAN CORPUSCULAR HGB CONC 33 g/dL (31-37); MEAN CORPUSCULAR VOLUME 87 fL (79-100); MONO # 0.1 x10^3/uL (0.0-1.1); MONO % 4 % (0-9); NEUT # 2.6 x10^3/uL (1.8-7.7); NEUT % 78 % (31-73); PLATELET COUNT 156 x10^3/uL (140-400); RED BLOOD COUNT 3.83 x10^6/uL (4.30-5.70); RED CELL DISTRIBUTION WIDTH 15.2 % (11.5-14.5); WHITE BLOOD COUNT 3.3 x10^3/uL (4.0-11.0)
[2019-11-21 05:28] LABS: CREATININE 1.2 mg/dL (0.7-1.3); GFR 69.6; POTASSIUM 3.9 mmol/L (3.5-5.1)
--- NOTE | 2019-11-21 06:56 | EKG ---
[facility] [address] [place] [address] Test Date: 2019-11-20 Test Time: 15:43:15 Pat Name: BOO MEDINA Department: Room: Gender: M Silk Weaver: : 1935 Requested By: FRACISCO JAMES Order Number: [id number] Reading MD: Measurements Intervals [place] Rate: 71 P: 90 MO: 210 QRS: 41 QRSD: 104 T: 106 QT: 418 QTc: 454 Interpretive Statements SINUS RHYTHM COMPLEX(ES) WITH ABERRANT INTRAVENTRICULAR CONDUCTION VENTRICULAR PREMATURE COMPLEX(ES) ATRIAL PREMATURE COMPLEX(ES) ABNORMAL ECG RI6.01 No previous ECG available for comparison
[2019-11-21 07:00] VITALS: BP 154/106
[2019-11-21] MEDS: IPRATRPIUM/ALBUTEROL 0.5/2.5MG 3 ML NEBU. NEB SCH ×4 (07:18→19:40)
--- NOTE | 2019-11-21 08:42 | PN ---
DATE: 11/21/2019 SUBJECTIVE: The patient was admitted yesterday with increasing shortness of breath and his BNP was elevated more than 9000. He was treated with IV furosemide and given treatment with albuterol and Atrovent and was started on steroids and ceftriaxone. OBJECTIVE: GENERAL: When I saw him this morning, he was resting slightly, propped up in bed, in no apparent respiratory distress, pale, but no jaundice, cyanosis or thyromegaly. No jugular venous distention. No limb edema. VITAL SIGNS: His heart rate was 75, blood pressure was 174/94, temperature 98.4, respiratory rate was 18 and oxygen saturation was 96%. The rest of clinical exam is stable. LABORATORY DATA: He has 2 more sets of cardiac enzymes that trended down and in fact, his troponin was less than 0.057, 0.059. PLAN: My plan is to first of all confirm his medications as he gets his medications from [facility] or to call Dr. Johnson's office and reconcile them. We have already consulted the Cardiology team and given his confusion and debility, he might eventually need to be admitted to senior living facility for rehabilitation. ABBY STARKS MD DR: BAIRON/michelle JOB#: [id number] / [id number]
--- NOTE | 2019-11-21 10:08 | HP ---
ADMIT DATE: HISTORY OF PRESENT ILLNESS: The patient is an 84-year-old -[place] male patient, who presented yesterday to the Emergency Room of [facility] complaining of intermittent episode of shortness of breath for a couple of days. is not sure how long this has been going on, but it sounds like it has been a week. also reports the patient has been more forgetful, especially around the house. He denied any chest pain. Did complain of having cough, but was not more specific. He was evaluated in the Emergency Room and has had lab work, which showed that his white cell count was normal. He has normochromic normocytic anemia. His chemistry showed slightly elevated liver enzymes. His first set of cardiac enzyme was 0.070 and BNP was 9396. His prothrombin time, INR and APTT are well within normal range. Urinalysis essentially negative, toxic screen was negative, and influenza A and B are negative. Has had a chest x-ray, which showed linear bibasilar scarring, no acute infiltrate; and CT scan of the head showed that there is no acute intracranial finding. Note is made that MRI is more sensitive. There is decreased attenuation within the cerebral white matter, likely due to chronic small vessel disease. There is also suspected tiny chronic lacunar infarct within the right frontal periventricular white matter along the caudate nucleus and cerebral volume loss. He was given Lasix and breathing treatment, was started on IV antibiotic and was admitted for further evaluation and treatment. PAST MEDICAL HISTORY: Significant for hypertension, hyperlipidemia, coronary artery disease and osteoarthritis. He has also peripheral vascular disease and right toe ulcer. He was diagnosed with osteomyelitis of the right second toe, underwent right second toe amputation through the metatarsophalangeal joint on 09/18/2019. ALLERGIES: He has no known drug allergies. SOCIAL HISTORY: He is , lives with his . He smoked for 60 years, quit 5 years ago. Denied any alcohol or drug use. FAMILY HISTORY: Unremarkable. REVIEW OF SYSTEMS: As per history of present illness. MEDICATIONS: He is currently on the following medications: He is on allopurinol 300 mg once a day, aspirin 325 mg once a day, felodipine 5 mg once a day, losartan potassium 50 mg daily, Flomax 0.4 mg daily, tramadol 50 mg every 6 hours, trazodone 50 mg at bedtime, nitroglycerin 0.4 mg sublingually as needed. PHYSICAL EXAMINATION: GENERAL: On arrival to the Emergency Room, he looked well and was clearly in no apparent respiratory distress, pale, but no jaundice, cyanosis or thyromegaly. No jugular venous distension. No lower limb edema. VITAL SIGNS: His heart rate was 73, blood pressure was 111/66, temperature 98.1, respiratory rate was 16 and oxygen saturation was 96%. HEAD, EYES, EARS, NOSE AND THROAT: Normocephalic, atraumatic. NECK: Supple. HEART: Showed normal first and second heart sounds. No gallop or murmur. CHEST: Clear to auscultation. No crepitation or rhonchi. ABDOMEN: Distended, soft, nontender. No guarding or rigidity. No organomegaly. All hernial orifices intact. Bowel sounds normal. NEUROLOGICAL: He was awake, alert, hard of hearing, but otherwise, all other cranial nerves are intact. He moves extremities without difficulty. LABORATORY DATA: His lab work on admission showed a white cell count 5400, hemoglobin 10, hematocrit 30, MCV 86 and platelet count of 153,000 with normal manual differential. His chemistry showed a serum sodium 141, potassium 3.6, chloride 105, bicarbonate 25, anion gap of 11, BUN 13, creatinine 1.1, estimated GFR was 77 mL per minute, his glucose was 82, calcium was 8.9. Total bilirubin is normal. AST, ALT and alkaline phosphatase are elevated. His lactic acid is only 1.4. His CK was 154. Troponin was 0.070. Beta natriuretic peptide was 9396. Total protein was 7.1, albumin was 3.5. His prothrombin time was 14.6, INR 1.2, APTT was 30. Urinalysis was essentially unremarkable and toxic screen was negative. His influenza A and B were negative. ASSESSMENT AND PLAN: In summary, this is an 84-year-old male patient, who was admitted with increasing shortness of breath and cough with scanty sputum. He was admitted with congestive heart failure. His troponin is elevated. We will do 2 more sets of cardiac enzyme. He apparently seemed to be more confused. We will reconcile all his medications. We will do 2 more sets of cardiac enzyme and we will consult the Cardiology team to assist with management. ABBY STARKS MD DR: Kofi JOB#: [id number] / [id number]
[2019-11-21 11:00] VITALS: BP 137/55
--- NOTE | 2019-11-21 11:42 | PDOC2 ---
BARRINGTON FINLEY PLACIDO 11/21/19 1142: CARDIAC CONSULT DATE OF CONSULT Date of Consult DATE: 11/21/19 TIME: 11:40 REASON FOR CONSULT Reason for Consult: Elevated troponin CHF REFERRING PHYSICIAN Referring Physician: Kathy Huggins APRN SOURCE Source: Chart review, Patient HISTORY OF PRESENT ILLNESS HISTORY OF PRESENT ILLNESS This is an 84 yo male who presented secondary to shortness of breath and chest pain. Patient is confused and unable to provide any meaningful informations. reports he has been confused for the last couple of weeks. For the last week, has been complaining of left sided chest pain. Has been diaphoretic and short of breath. Was nauseated yesterday with episode of vomiting. Has also has some LE edema for the last week or so. Patient present denying any chest pain, but does stat that he has has some chest pain recently. Is unable to describes. Has a history of CAD s/p PCI/stent placement about 10 years ago. Stress test 05/2019 without evidence of ischemia or infarct. Troponin mildly elevated upon arrival. PAST MEDICAL HISTORY Past Medical History Cardiovascular: CAD, HTN, Hyperlipidemia, Other (peripheral vascular disease; SSS) Musculoskeletal: Osteoarthritis Infectious disease: No pertinent hx ENT: No pertinent hx Renal/: No pertinent hx Endocrine: No pertinent hx Dermatology: No pertinent hx PAST SURGICAL HISTORY Past Surgical History Pacemaker ([employer]), Other (PCI/stent 2001 ) FAMILY HISTORY Family History: Heart Disease, Hypertension SOCIAL HISTORY Social History Smoke: No ALCOHOL: none Drugs: None Lives: with Family CURRENT MEDICATIONS CURRENT MEDICATIONS Current Medications Medications (Trade) Dose Ordered Sig/Kalyn Route PRN Reason Start Time Stop Time Status Last Admin Dose Admin Albuterol/ Ipratropium (Duoneb) 3 ml 1X ONCE NEB 11/20/19 16:00 11/20/19 16:13 DC 11/20/19 16:41 Methylprednisolone Sodium Succinate (SOLU-Medrol 125MG VIAL) 125 mg 1X ONCE IV 11/20/19 16:00 11/20/19 16:13 DC 11/20/19 16:28 Aspirin (Adilson Aspirin) 325 mg 1X ONCE PO 11/20/19 17:45 11/20/19 17:46 DC 11/20/19 18:22 Furosemide (Lasix) 20 mg 1X ONCE IVP 11/20/19 18:30 11/20/19 18:31 DC 11/20/19 19:09 Albuterol/ Ipratropium (Duoneb) 3 ml 1X ONCE NEB 11/20/19 20:00 11/20/19 20:01 DC 11/20/19 20:04 Acetaminophen (Tylenol) 650 mg PRN Q4HRS PRN PO FEVER 11/20/19 20:15 11/21/19 20:14 11/21/19 03:56 Albuterol/ Ipratropium (Duoneb) 3 ml RTQID NEB 11/21/19 08:00 11/22/19 07:59 11/21/19 07:18 Ceftriaxone Sodium (Rocephin) 1 gm 1X ONCE IVP 11/20/19 21:30 11/20/19 21:31 DC 11/20/19 21:36 Clonidine HCl (Catapres) 0.1 mg PRN Q6HRS PRN PO HYPERTENSION 11/20/19 21:15 11/20/19 21:35 ALLERGIES ALLERGIES: Coded Allergies: No Known Drug Allergies (Unverified , 09/18/19) ROS Review of System 14 point ROS conducted with pertinent positives noted above in HPI PHYSICAL EXAM General: Alert (to person only. is confused), Cooperative, No acute distress HEENT: Atraumatic, Mucous membr. moist/pink Lungs: Other (diminished ) Heart: Regular rate, Normal S1, Normal S2, Other (intermittent v-pacing on tele) Abdomen: Soft, No tenderness Extremities: Other (1+ bilateral LE edema ) Neuro: Normal speech, Sensation intact Psych/Mental Status: Other (calm, confused ) VITALS/I&O VITALS/I&O: Vital Signs Date Time Temp Pulse Resp B/P (MAP) Pulse Ox O2 Delivery O2 Flow Rate FiO2 11/21/19 07:21 100 Nasal Cannula 2.0 11/21/19 07:00 97.7 105 20 154/106 (122) 97.7 I & O 11/20/19 11/20/19 11/21/19 15:00 23:00 07:00 Intake Total 180 ml Output Total 1050 ml Balance -870 ml LABS Lab: Laboratory Tests Test 11/20/19 16:00 11/20/19 16:17 11/20/19 20:10 11/20/19 21:58 White Blood Count 5.4 x10^3/uL (4.0-11.0) Red Blood Count 3.53 x10^6/uL (4.30-5.70) L Hemoglobin 10.3 g/dL (13.0-17.5) L Hematocrit 30.5 % (39.0-53.0) L Mean Corpuscular Volume 86 fL (79-100) Mean Corpuscular Hemoglobin 29 pg (25-35) Mean Corpuscular Hemoglobin Concent 34 g/dL (31-37) Red Cell Distribution Width 15.3 % (11.5-14.5) H Platelet Count 153 x10^3/uL (140-400) Neutrophils (%) (Auto) 69 % (31-73) Lymphocytes (%) (Auto) 21 % (24-48) L Monocytes (%) (Auto) 8 % (0-9) Eosinophils (%) (Auto) 2 % (0-3) Basophils (%) (Auto) 2 % (0-3) Neutrophils # (Auto) 3.7 x10^3/uL (1.8-7.7) Lymphocytes # (Auto) 1.1 x10^3/uL (1.0-4.8) Monocytes # (Auto) 0.4 x10^3/uL (0.0-1.1) Eosinophils # (Auto) 0.1 x10^3/uL (0.0-0.7) Basophils # (Auto) 0.1 x10^3/uL (0.0-0.2) Prothrombin Time 14.6 SEC (11.7-14.0) H Prothrombin Time INR 1.2 (0.8-1.1) H Activated Partial Thromboplast Time 30 SEC (24-38) Sodium Level 141 mmol/L (136-145) Potassium Level 3.6 mmol/L (3.5-5.1) Chloride Level 105 mmol/L (98-107) Carbon Dioxide Level 25 mmol/L (21-32) Anion Gap 11 (6-14) Blood Urea Nitrogen 13 mg/dL (8-26) Creatinine 1.1 mg/dL (0.7-1.3) Estimated GFR (Cockcroft-Gault) 77.0 BUN/Creatinine Ratio 12 (6-20) Glucose Level 82 mg/dL (70-99) Lactic Acid Level 1.4 mmol/L (0.4-2.0) Calcium Level 8.9 mg/dL (8.5-10.1) Magnesium Level 1.9 mg/dL (1.8-2.4) Total Bilirubin 1.0 mg/dL (0.2-1.0) Aspartate Amino Transferase (AST) 50 U/L (15-37) H Alanine Aminotransferase (ALT) 114 U/L (16-63) H Alkaline Phosphatase 125 U/L (46-116) H Creatine Kinase 154 U/L (39-308) Creatine Kinase MB (Mass) 3.0 ng/mL (0.0-3.6) Creatine Kinase MB Relative Index 1.9 % (0-4) Troponin I Quantitative 0.070 ng/mL (0.000-0.055) 0.057 ng/mL (0.000-0.055) BN-Ipg-T-Type Natriuretic Peptide 9396 pg/mL (0-449) H Total Protein 7.1 g/dL (6.4-8.2) Albumin 3.5 g/dL (3.4-5.0) Albumin/Globulin Ratio 1.0 (1.0-1.7) Procalcitonin < 0.10 ng/mL (0.00-0.10) Thyroid Stimulating Hormone (TSH) 2.657 uIU/mL (0.358-3.74) Influenza Type A Antigen Negative (NEGATIVE) Influenza Type B Antigen Negative (NEGATIVE) Urine Color Yellow Urine Clarity Clear Urine pH 5.5 Urine Specific [place] 1.010 Urine Protein Negative mg/dL (NEG-TRACE) Urine Glucose (UA) Negative mg/dL (NEG) Urine Ketones (Stick) Negative mg/dL (NEG) Urine Blood Negative (NEG) Urine Nitrite Negative (NEG) Urine Bilirubin Negative (NEG) Urine Urobilinogen Dipstick 0.2 mg/dL (0.2 mg/dL) Urine Leukocyte Esterase Negative (NEG) Urine RBC Rare /HPF (0-2) Urine WBC Occ /HPF (0-4) Urine Squamous Epithelial Cells Occ /LPF Urine Bacteria 0 /HPF (0-FEW) Urine Opiates Screen Neg (NEG) Urine Methadone Screen Neg (NEG) Urine Barbiturates Neg (NEG) Urine Phencyclidine Screen Neg (NEG) Urine Amphetamine/Methamphetamine Neg (NEG) Urine Benzodiazepines Screen Neg (NEG) Urine Cocaine Screen Neg (NEG) Urine Cannabinoids Screen Neg (NEG) Urine Ethyl Alcohol Neg (NEG) Test 11/21/19 05:00 White Blood Count 3.3 x10^3/uL (4.0-11.0) L Red Blood Count 3.83 x10^6/uL (4.30-5.70) L Hemoglobin 11.0 g/dL (13.0-17.5) L Hematocrit 33.2 % (39.0-53.0) L Mean Corpuscular Volume 87 fL (79-100) Mean Corpuscular Hemoglobin 29 pg (25-35) Mean Corpuscular Hemoglobin Concent 33 g/dL (31-37) Red Cell Distribution Width 15.2 % (11.5-14.5) H Platelet Count 156 x10^3/uL (140-400) Neutrophils (%) (Auto) 78 % (31-73) H Lymphocytes (%) (Auto) 18 % (24-48) L Monocytes (%) (Auto) 4 % (0-9) Eosinophils (%) (Auto) 0 % (0-3) Basophils (%) (Auto) 0 % (0-3) Neutrophils # (Auto) 2.6 x10^3/uL (1.8-7.7) Lymphocytes # (Auto) 0.6 x10^3/uL (1.0-4.8) L Monocytes # (Auto) 0.1 x10^3/uL (0.0-1.1) Eosinophils # (Auto) 0.0 x10^3/uL (0.0-0.7) Basophils # (Auto) 0.0 x10^3/uL (0.0-0.2) Sodium Level 141 mmol/L (136-145) Potassium Level 3.9 mmol/L (3.5-5.1) Chloride Level 103 mmol/L (98-107) Carbon Dioxide Level 26 mmol/L (21-32) Anion Gap 12 (6-14) Blood Urea Nitrogen 12 mg/dL (8-26) Creatinine 1.2 mg/dL (0.7-1.3) Estimated GFR (Cockcroft-Gault) 69.6 Glucose Level 123 mg/dL (70-99) H Calcium Level 9.0 mg/dL (8.5-10.1) Troponin I Quantitative 0.059 ng/mL (0.000-0.055) Laboratory Tests 11/20/19 16:00 11/21/19 05:00 Laboratory Tests 11/20/19 16:00 11/21/19 05:00 ECHOCARDIOGRAM ECHOCARDIOGRAM <Conclusion> The left ventricle is normal size. The left ventricular systolic function is normal and the ejection fraction is within normal range. The Ejection Fraction is 55-60%. There is mild to moderate concentric left ventricular hypertrophy. There is no significant aortic valvular stenosis. Doppler and Color Flow revealed mild aortic regurgitation. Doppler and Color Flow revealed trace mitral regurgitation. Doppler and Color Flow revealed mild tricuspid regurgitation. The PA pressure was estimated at 39 mmHg. DATE: 04/28/16 1134 <Conclusion> The left ventricular systolic function is normal. The Ejection Fraction is 55-60%. There is normal LV segmental wall motion. Transmitral Doppler flow pattern is Grade I-abnormal relaxation pattern. Mild aortic stenosis. Trace to mild aortic regurgitation. Mild mitral regurgitation. Mild tricuspid regurgitation. The PA pressure was estimated at 38 mmHg. There is no evidence of significant pericardial effusion. DATE: 06/11/19 1219 STRESS TEST STRESS TEST Conclusion 1. Regadenoson cardioisotope stress test showed diaphragmatic attenuation artifact without any evidence of ischemia or infarct. 2. Normal left ventricular systolic function with ejection fraction calculated at 65%. 3. Low risk for cardiac events. DATE: 06/11/19 1417 ASSESSMENT/PLAN ASSESSMENT/PLAN 1. Dyspnea with acute on chronic diastolic CHF; Echo 05/2019 with preserved LV systolic function 2. Chest pain, mixed feature per 's report of symptoms. Patient unable to describe. MPI 05/31 without evidence of ischemia or infarct 3. Mild troponin elevation; trop highest 0.07 4. CAD; PCI/stent about 10 years ago. in the past. Stable 5. SSS; s/p PPM ([facility] [facility]). Device interrogation with episode of atrial tach 6. Hypertension; labile today 7. PAD; recent arterial duplex with bilateral SFA occlusions 8. Elevated LFTs 9. Metabolic encephalopathy vs dementia. CT head with chronic small vessel disease and evidence of chronic lacunar infarct Recommendations Mild diuresis with monitoring of labs Will start metoprolol for rate control Lipids, TSH Restart home meds. Continue with secondary prevention; ASA statin therapy Limited echo to assess LV systolic function Repeat EKG Check ammonia level given confusion Consider ischemic workup Further pending above. GORDON RICHARDSON MD 11/21/192028: CARDIAC CONSULT ASSESSMENT/PLAN ASSESSMENT/PLAN Patient seen and examined. Agree with HEAD USHER's assessment and plan. Continue gentle diuresis for mild acute on chr diastolic HF CP atypical and appears to be GI in etiology We will consider outpatient ischemic workup 2D echo showed normal LVF PAD stable Thank you for your consultation BARRINGTON FINLEY APRN Nov 21, 2019 11:42 GORDON RICHARDSON MD Nov 21, 2019 20:29
[2019-11-21] MEDS ORDERED: FUROSEMIDE 40 MG/4 ML VIAL. IVP ONE (12:45)
[2019-11-21 13:04] LABS: CHOLESTEROL/HDL RATIO 2.6
[2019-11-21] MEDS: ASPIRIN 325 MG TABLET PO SCH (13:48)
[2019-11-21] MEDS: LOSARTAN POTASSIUM 50 MG TABLET. PO SCH (13:49)
[2019-11-21] MEDS: METOPROLOL SUCC 24HR ER 25 MG TAB.ER.24H. PO SCH (13:49)
[2019-11-21] MEDS: TAMSULOSIN 0.4 MG CAP.ER.24H. PO SCH ×2 (13:49→21:12)
--- NOTE | 2019-11-21 14:29 | EKG ---
[facility] [address] [place] [address] Test Date: 2019-11-21 Test Time: 14:25:32 Pat Name: BOO MEDINA Department: Room: 211 1 Gender: M Sand Technician: SULLY : [id number] Requested By: BARRINGTON FINLEY Order Number: [id number] Reading MD: Measurements Intervals [place] Rate: 75 P: MN: QRS: 51 QRSD: 106 T: 116 QT: 428 QTc: 481 Interpretive Statements IRREGULAR RHYTHM, NO P-WAVE FOUND VENTRICULAR PREMATURE COMPLEX(ES) T ABNORMALITY IN LATERAL LEADS PROLONGED QT ABNORMAL ECG RI6.02 Compared to ECG 08/27/2019 07:01:27 T-wave abnormality now present Prolonged QT interval now present Sinus rhythm no longer present
--- NOTE | 2019-11-21 14:57 | CARD ---
MR#: [id number] Date of Study: 11/21/2019 Ordering Physician: BARRINGTON FINLEY, Referring Physician: BARRINGTON FINLEY, Tech: Emilie Harper APPROVED REPORT EXAM: Two-dimensional and M-mode echocardiogram with Doppler and color Doppler. Other Information Quality : LimitedHR: 72bpm Rhythm : Pacemaker INDICATION Cardiac Disease: CAD Chest Pain Congestive Heart Failure Surgery/Intervention Pacemaker: Date: 2010 2D DIMENSIONS Left Atrium(2D)3.5 (1.6-4.0cm)IVSd1.2 (0.7-1.1cm) Aortic Root(2D)3.4 (2.0-3.7cm)LVDd5.5 (3.9-5.9cm) LVOT Diameter2.1 (1.8-2.4cm)PWd1.2 (0.7-1.1cm) LVDs3.4 (2.5-4.0cm)FS (%) 39.3 % SV102.7 mlLVEF(%)69.1 (>50%) Pulmonary Valve PV Peak Boowiolp80.0cm/sPV Peak Grad.3mmHg Tricuspid Valve TR P. [id number]/sTR Peak Gr.31mmHg LEFT VENTRICLE The left ventricle is normal size. There is mild to moderate concentric left ventricular hypertrophy. The left ventricular systolic function is normal. The Ejection Fraction is 55-60%. Septal wall motio n consistent with conduction abnormality. Diastology not performed for limited echo. RIGHT VENTRICLE The right ventricle is normal size. There is normal right ventricular wall thickness. The right ventr icular systolic function is normal. There is a pacemaker lead in the right ventricle. ATRIA The left atrium size is normal. The right atrium size is normal. The interatrial septum is intact wit h no evidence for an atrial septal defect or patent foramen ovale as noted on 2-D or Doppler imaging. AORTIC VALVE The aortic valve is mildly to moderately thickened. Doppler and color-flow analysis was not performed . MITRAL VALVE The mitral valve is normal in structure and function. There is no evidence of mitral valve prolapse. There is no mitral valve stenosis. Doppler and color-flow analysis was not performed. TRICUSPID VALVE The tricuspid valve is not visualized. Doppler and color-flow analysis was not performed. PULMONIC VALVE The pulmonic valve is not visualized. Doppler and color-flow analysis was not performed. GREAT VESSELS The aortic root is normal in size. The IVC is normal in size and collapses >50% with inspiration. PERICARDIAL EFFUSION There is no evidence of significant pericardial effusion. Critical Notification Critical Value: No <Conclusion> The left ventricular systolic function is normal. The Ejection Fraction is 55-60%. There is a pacemaker lead in the right atrium and ventricle. There is no evidence of significant pericardial effusion. Signed by : Dinh Vaz, Electronically Approved : 11/21/2019 14:57:17
[2019-11-21 15:00] VITALS: BP 118/61
--- NOTE | 2019-11-21 15:40 | NUR ---
SS following for discharge planning. SS reviewed pt chart. Pt is from home with family and is currently on room air. PT recommended assisted unit. Pt confused. SS contacted pt's spouse to discuss discharge planning. Pt's spouse reported that she needs to discuss assisted unit with her family. She reported that family may want to take pt home. Pt's spouse stated she would notify staff once family has made a decision. SS will continue to follow for discharge planning.
[2019-11-21] MEDS ORDERED: amLODIPine BESYLATE 5 MG TABLET PO SCH (16:00)
[2019-11-21] MEDS ORDERED: ATORVASTATIN CALCIUM 40 MG TABLET. PO SCH (21:00)
[2019-11-21] MEDS: OLANZapine 2.5 MG TABLET PO PRN (21:12)
[2019-11-21 22:37] VITALS: BP 122/69
[2019-11-22] MEDS: OLANZapine 2.5 MG TABLET PO PRN (02:20)
--- NOTE | 2019-11-22 03:09 | NUR ---
Patient increasingly confused and refusing to go to pt room. Pt extremely agitated. Spoke with Dr. Dailey and received orders. Patient also refused 3 AM vitals.
[2019-11-22] MEDS ORDERED: HALOPERIDOL LACTATE 5 MG/ML VIAL. IVP ONE (03:15)
[2019-11-22] MEDS ORDERED: OLANZapine IM 10 MG VIAL. IM PRN (03:15)
--- NOTE | 2019-11-22 04:37 | NUR ---
Spoke with patient Serge Pedersen and son Serge Schmidt, stated that they want patient to return home stated that "he will not go to a facility".
[2019-11-22 07:00] VITALS: BP 152/63
[2019-11-22 08:49] VITALS: BP 152/63
[2019-11-22] MEDS: LOSARTAN POTASSIUM 50 MG TABLET. PO SCH (08:49)
[2019-11-22] MEDS: ASPIRIN 325 MG TABLET PO SCH (08:49)
[2019-11-22] MEDS: TAMSULOSIN 0.4 MG CAP.ER.24H. PO SCH (08:49)
[2019-11-22] MEDS: METOPROLOL SUCC 24HR ER 25 MG TAB.ER.24H. PO SCH (08:49)
--- NOTE | 2019-11-22 09:14 | SNU/HH DC ---
DISCHARGE WITH HOME HEALTH DISCHARGE INFORMATION: Discharge Date: Nov 22, 2019 Final Diagnosis: Problems Medical Problems: (1) CHF (congestive heart failure) Status: Acute (2) Smoking addiction Status: Acute Condition on Discharge: Stable CODE STATUS: Code Status: Full HOME HEALTH: Face to Face: I certify this patient is under my care and that I, or a nurse practitioner or physician's speech pathologist assistant working with me, had a face to face encounter that meets the physician face to face encounter requirements with this patient on 11/22/19 Medical Complications: CHF RN For Eval/Treatment: Yes Physical Therapy For: Evalulation/Treatment Occupational Therapy For: Evaluation/Treatment Pt Meets Homebound Status: Extreme weakness w/ amb. POST DISCHARGE ORDERS: Activity Instructions for Disc: Activity as tolerated Weight Bearing Status after Di: As tolerated DIET AFTER DISCHARGE: Cardiac Wound/Incision Care: Change dressing CHECKS AFTER DISCHARGE: Checks after discharge: Check blood press - daily TREATMENT/EQUIPMENT ORDERS: Adaptive Equipment Issued: Brace/splint, Walker CERTIFICATION STATEMENT: Certification Statement: Certification Statement: Based on the above finding, I certify that this patient is confined to the home and needs intermittent fci care, physical therapy and/or speech therapy, or continues to need occupational therapy.~ This patient is under my care, and I have initiated the establishment of the plan of care.~ This patient will be followed by myself or a community physician who will periodically review the plan of care. Home Meds Active Scripts Atorvastatin Calcium (ATORVASTATIN CALCIUM) 40 Mg Tablet, 40 MG PO QHS for chol for 30 Days, #30 TAB Prov:GUILLE PINEDA MD 08/27/19 Reported Medications Tamsulosin Hcl (FLOMAX) 0.4 Mg Cap.er.24h, 1 CAP PO BID for BPH, #30 CAP 11 Refills 08/26/19 Tramadol Hcl (TRAMADOL HCL) 50 Mg Tablet, 50 MG PO Q6HRS PRN for PAIN, TAB 08/26/19 Trazodone Hcl (TRAZODONE HCL) 50 Mg Tablet, 1 TAB PO QHS for Sleep aide , #30 TAB 1 Refill 08/26/19 Aspirin (ASPIRIN) 325 Mg Tablet, 1 TAB PO DAILY for stroke prevention, #30 TAB 5 Refills 08/26/19 Allopurinol (ALLOPURINOL) 300 Mg Tablet, 1 TAB PO DAILY for gout, #30 TAB 5 Refills 08/26/19 Losartan Potassium (LOSARTAN POTASSIUM) 50 Mg Tablet, 50 MG PO DAILY for HYPERTENSION, TAB 08/26/19 Nitroglycerin (NITROGLYCERIN SubLingual) 0.4 Mg Tab.subl, 1 TAB SL UD, #25 TAB 3 Refills 04/19/16 Felodipine (FELODIPINE ER) 5 Mg Tab.er.24h, 1 TAB PO DAILY16, #30 TAB 5 Refills 04/19/16 ABBY STARKS MD Nov 22, 2019 09:14
[2019-11-22] MEDS ORDERED: METO25TA2 PO (09:17)
--- NOTE | 2019-11-22 10:05 | DS ---
DATE OF DISCHARGE: HOSPITAL COURSE: The patient is an 84-year-old -[place]ub[place] male patient who was admitted to the Emergency Room with complaint of intermittent episode of shortness of breath for a couple of days and patient himself denied any chest pain, did complain of having cough but it was not more specific. He was evaluated in the Emergency Room. His lab work showed his white cell count was normal. He has normochromic normocytic anemia. His chemistry showed slightly elevated liver enzymes. His first set of cardiac enzyme was 0.070. BNP was 9396. He was admitted to do 2 more sets of cardiac enzyme and to consult the casing builder. He checked his also fasting lipid profile. He has 3 sets of cardiac enzymes that actually were trending down. He was seen in consultation by the Cardiology team and apparently, he has had a stress test done on 06/11/2019 which showed that diaphragmatic attenuation artifact without any evidence of ischemia or infarct. At that time, he has also showed normal left ventricular systolic function, ejection fraction calculated at 65% and the patient was started on beta tod and a decision was made to discharge him home with home health. PHYSICAL EXAMINATION: GENERAL: When I saw him today, he looked well and was clearly in no apparent respiratory distress, pale, but no jaundice, cyanosis or thyromegaly. No jugular venous distention. No limb edema. VITAL SIGNS: His heart rate was 73, blood pressure 152/63, temperature 97.7, respiratory rate was 18 and oxygen saturation was 97% on room air. HEAD, EYES, EARS, NOSE AND THROAT: Showed normocephalic, atraumatic. NECK: Supple. HEART: Showed normal first and second heart sounds. No gallop, rub or murmur. CHEST: Clear to auscultation. No crepitation or rhonchi. ABDOMEN: Distended, soft, nontender. NEUROLOGICAL: He is awake, alert, responding appropriately. All cranial nerves are intact. He moves extremities without difficulty. His intake was 200, output was 1050. LABORATORY DATA: As of this morning, his serum sodium was 141, potassium 3.9, chloride 103, bicarbonate 26, anion gap of 12, BUN 12, creatinine 1.2, estimated GFR was 69 mL per minute, his glucose 123, calcium was 9. Serum triglycerides were 38, total cholesterol 138, LDL cholesterol 77, VLDL was 8 and HDL cholesterol was 53, the ratio was 2.6. TSH was 2.657. His white cell count was 3300, hemoglobin 11, hematocrit 33, MCV 87 and platelet count of 156,000. DISCHARGE MEDICATIONS: He was discharged home to continue on metoprolol succinate 25 mg once a day, allopurinol 300 mg once a day, aspirin 325 mg once a day, atorvastatin calcium 40 mg at bedtime, felodipine 5 mg once a day, losartan potassium 50 mg once a day, nitroglycerin 0.4 mg sublingually every 5 minutes x 3, tamsulosin 0.4 mg twice a day, tramadol 50 mg every 6 hours and trazodone 50 mg at bedtime. FINAL DISCHARGE DIAGNOSES: Dyspnea, likely due to acute on chronic diastolic congestive heart failure. His echocardiogram showed preserved left ventricular systolic function. Chest pain, atypical. His stress test done in May of this year showed no evidence of ischemia. Coronary artery disease, status post PCI with stent deployment. Sick sinus syndrome, status post permanent pacemaker placement. The device was interrogated without episodes of atrial tachycardia or fibrillation. Hypertension, seems to be reasonably controlled. Peripheral arterial disease, recent arterial Doppler showing some superficial femoral artery occlusion. Metabolic encephalopathy versus dementia, his CT scan of the head showed small vessel disease with evidence of chronic lacunar infarct. ABBY STARKS MD DR: BAIRON/michelle JOB#: [id number] / [id number]
--- NOTE | 2019-11-22 11:03 | NUR ---
Discharge Note: SERGE MEDINA Discharge instructions and discharge home medications reviewed with Family Member and a copy given. All questions have been answered and understanding verbalized. The following instructions and handouts were given to son Serge Mejia. prescription and d/c paperwork Discontinued lines and drains: PIV dc'd with no complications Patient discharged to home with home health via personal car
--- NOTE | 2019-11-22 11:06 | NUR ---
SS following up with discharge planning. Pt's family declining group home unit at this time. Pt's family agreeable to home healthcare. Discharge orders received for home healthcare. SS met with pt and pt's family in room and pt's family agreeable to [facility], ; fax [phone]. Referral and discharge orders phoned and faxed to [facility]. Pt's RN notified.
--- NOTE | 2019-11-22 11:45 | PDOC ---
ANUEL BLAND Bi MEDICAL INTERPRETER 11/22/19 1145: CARDIO Progress Notes Date and Time Date of Service 11/22/2019 Time of Evaluation 1010 Subjective Subjective: No Chest Pain, No shortness of breath, No Palpitations Vitals Vitals Vital Signs Date Time Temp Pulse Resp B/P (MAP) Pulse Ox O2 Delivery O2 Flow Rate FiO2 11/22/19 08:49 73 152/63 11/22/19 08:00 Room Air 11/22/19 07:00 97.7 18 97 97.7 11/21/19 15:22 2.0 Weight Weight [ ] Input and Output Intake and Output Intake and Output 11/22/19 07:00 Intake Total 1100 ml Output Total 100 ml Balance 1000 ml Intake Oral 1100 ml Output Urine Total 100 ml # Voids 5 Laboratory Labs Laboratory Tests Test 11/21/19 12:50 Ammonia < 10 mcmol/L (11-34) Microbiology Micro Microbiology 11/20/19 Blood Culture - Preliminary, Resulted NO GROWTH AFTER 1 DAY Physical Exam HEENT: Neck Supple W Full Motion Chest: Symmetric LUNGS: Other (diminished bases) Heart: RRR (SR) Abdomen: Soft N/T Extremities: No Edema, No Calf Tenderness Neurology: confused Assessment Assessment 1. Acute on chronic diastolic CHF: compensated 2. Chest pain: possibly MSK, no further recurrence 3. Mild troponin elevation; trop highest 0.07, demand mediated 4. CAD; PCI/stent about 10 years ago. in the past. Stable. MPI recent unremarkable 5. SSS; s/p PPM ([facility]). Device interrogation with episode of atrial tach 6. Hypertension; controlled 7. PAD; recent arterial duplex with bilateral SFA occlusions, no wounds and no pain 8. Dementia: confuse Recommendations 1. Lasix therapy 2. Continue with secondary prevention measures 3. Home health 4. Metoprolol 5. Follow up in office as instructed. GORDON RICHARDSON MD 11/23/19 0812: CARDIO Progress Notes Assessment Assessment Patient seen and examined 11/22/19. Agree with MEDICAL SOCIAL CONSULTANT's assessment and plan. Ac on chr diast HF better compensated CP musculoskeletal CAD stable FU with our office as scheduled ANUEL BLAND MEDICAL INTERPRETER Nov 22, 2019 11:45 GORDON RICHARDSON MD Nov 23, 2019 08:12
[2019-11-23] MEDS ORDERED: METOPROLOL SUCC 24HR ER 25 MG TAB.ER.24H. PO SCH (09:00)
== END 2019-11-22 11:08 | disposition home health service (06) | DRG 291 ==
LOC: ER 15:05 → ED HOLD 19:43 → 2 NORTH 22:30
PROVIDERS: ADMIT Internal Medicine; ATTEND Internal Medicine
DX: I11.0 Hypertensive heart disease with heart failure (principal); G93.41 Metabolic encephalopathy; I63.81 Other cerebral infarction due to occlusion or stenosis of small artery; I50.33 Acute on chronic diastolic (congestive) heart failure; M19.90 Unspecified osteoarthritis, unspecified site; D64.9 Anemia, unspecified; I25.10 Atherosclerotic heart disease of native coronary artery without angina pectoris; I49.5 Sick sinus syndrome; F03.90 Unspecified dementia, unspecified severity, without behavioral disturbance, psychotic disturbance, mood disturbance, and anxiety; I70.209 Unspecified atherosclerosis of native arteries of extremities, unspecified extremity; E78.5 Hyperlipidemia, unspecified; Z87.891 Personal history of nicotine dependence; Z95.0 Presence of cardiac pacemaker; Z95.5 Presence of coronary angioplasty implant and graft; Z82.49 Family history of ischemic heart disease and other diseases of the circulatory system
CPT/HCPCS: 36415; 70450; 71045; 80048; 80053; 80061; 80307; 81001; 82140; 82553; 83605; 83735; 83880; 84145; 84443; 84484; 85025; 85610; 85730; 87040; 87804; 93005; 93308; 94640; 94760; 96374; 96375; J0696; J1630; J1940; J2930; J7620; 97110; 97116; 99285-25; G0378

== ENCOUNTER 2020-01-02 15:10 | Inpatient (IN) | payer MEDICARE, OTHER ==
[~2020-01-02] VITALS: Ht 170.2 cm; Wt 69.7 kg
[~2020-01-02 15:10] MED LIST changes: +METO25TA2 PO
[2020-01-02 15:50] LABS: BASO % 0 % (0-3); EOS # 0.1 x10^3/uL (0.0-0.7); EOS % 1 % (0-3); HEMATOCRIT 31.9 % (39.0-53.0); HEMOGLOBIN 10.7 g/dL (13.0-17.5); LYMPH # 0.1 x10^3/uL (1.0-4.8); LYMPH % 2 % (24-48); MEAN CORPUSCULAR HEMOGLOBIN 29 pg (25-35); MEAN CORPUSCULAR HGB CONC 34 g/dL (31-37); MEAN CORPUSCULAR VOLUME 86 fL (79-100); MONO % 0 % (0-9); NEUT # 4.6 x10^3/uL (1.8-7.7); NEUT % 96 % (31-73); PLATELET COUNT 97 x10^3/uL (140-400); RED BLOOD COUNT 3.72 x10^6/uL (4.30-5.70); RED CELL DISTRIBUTION WIDTH 15.6 % (11.5-14.5); WHITE BLOOD COUNT 4.8 x10^3/uL (4.0-11.0)
--- NOTE | 2020-01-02 15:50 | PHYS DOC ---
Past Medical History Past Medical History: CAD, CHF, Dementia, Hypertension Additional Past Medical Histor: bradycardia Past Surgical History: Pacemaker, Other Additional Past Surgical Histo: stents Smoking Status: Current Every Day Smoker Alcohol Use: None Drug Use: None Adult General Chief Complaint Chief Complaint: ALTERED MENTAL STATUS HPI HPI Patient is a 84 year old AA male brought to the ER by EMS with reports of increased confusion. EMS states that patient has a hx of dementia and the home health nurse that visited him today felt that it was worse so they called 911 to send the patient to the ER. Pt is alert and oriented to person only on arrival to the ER. He denies any complaints. Limited HPI due to patient's mental status. Patient denies any pain at this time. Review of Systems Review of Systems Complete ROS is negative unless otherwise noted in HPI. Current Medications Current Medications Current Medications Medications (Trade) Dose Ordered Sig/Kalyn Start Time Stop Time Status Last Admin Dose Admin Acetaminophen (Tylenol) 1,000 mg 1X ONCE 01/02/20 16:45 01/02/20 16:46 DC 01/02/20 17:02 1,000 MG Aspirin (Adilson Aspirin) 325 mg 1X ONCE 01/02/20 16:45 01/02/20 16:46 DC Ceftriaxone Sodium (Rocephin) 1 gm 1X ONCE 01/02/20 16:45 01/02/20 16:46 DC 01/02/20 17:02 1 GM Heparin Sodium (Porcine) (Heparin Sodium) 1,600 unit PRN Q6HRS PRN 01/02/20 16:30 Heparin Sodium/ Dextrose 250 ml @ 0 mls/hr CONT PRN 01/02/20 16:30 01/02/20 17:20 7.68 MLS/HR Ibuprofen (Motrin) 600 mg 1X ONCE 01/02/20 16:45 01/02/20 16:46 DC 01/02/20 17:03 600 MG Info (Anti-Coagulation Monitoring By Pharmacy) 1 each PRN DAILY PRN 01/02/20 16:30 Sodium Chloride 1,000 ml @ 1,000 mls/hr 1X ONCE 01/02/20 16:45 01/02/20 17:44 DC 01/02/20 17:03 1,000 MLS/HR Vancomycin HCl (Vanco Per Pharmacy) 1 each PRN DAILY PRN 01/02/20 17:30 UNV Vancomycin HCl 1.5 gm/Sodium Chloride 500 ml @ 250 mls/hr 1X ONCE 01/02/20 18:00 01/02/20 19:59 Allergies Allergies Allergies Coded Allergies Type Severity Reaction Last Updated Verified No Known Drug Allergies 09/18/19 No Physical Exam Physical Exam See Above Constitutional: Well developed, well nourished, no acute distress, ill appearing HENT: Normocephalic, atraumatic, bilateral external ears normal, oropharynx dry, nose normal. [] Eyes: PERRLA, EOMI, conjunctiva normal, no discharge. [] Neck: Normal range of motion, no stridor. [] Cardiovascular:Heart rate regularly irregular Lungs & Thorax: Bilateral breath sounds clear to auscultation, no retractions, no wheezing, regular rate [] Abdomen: Bowel sounds normal, soft, no tenderness Skin: Flushed, hot, dry, no rash. [] Back: No tenderness Extremities: No cyanosis, no clubbing, ROM intact, no edema. [] Neurologic: Alert and oriented X 1, normal motor function, normal sensory function, no focal deficits noted. [] Psychologic: Affect normal, judgement normal, mood normal. [] Current Patient Data Vital Signs Vital Signs Date Time Temp Pulse Resp B/P (MAP) Pulse Ox O2 Delivery O2 Flow Rate FiO2 01/02/20 17:15 90 20 98 01/02/20 15:10 103.7 140/93 (109) Room Air 103.7 Lab Values Laboratory Tests Test 01/02/20 15:30 01/02/20 15:35 Influenza Type A Antigen Negative (NEGATIVE) Influenza Type B Antigen Negative (NEGATIVE) White Blood Count 4.8 x10^3/uL (4.0-11.0) Red Blood Count 3.72 x10^6/uL (4.30-5.70) L Hemoglobin 10.7 g/dL (13.0-17.5) L Hematocrit 31.9 % (39.0-53.0) L Mean Corpuscular Volume 86 fL (79-100) Mean Corpuscular Hemoglobin 29 pg (25-35) Mean Corpuscular Hemoglobin Concent 34 g/dL (31-37) Red Cell Distribution Width 15.6 % (11.5-14.5) H Platelet Count 97 x10^3/uL (140-400) L Neutrophils (%) (Auto) 96 % (31-73) H Lymphocytes (%) (Auto) 2 % (24-48) L Monocytes (%) (Auto) 0 % (0-9) Eosinophils (%) (Auto) 1 % (0-3) Basophils (%) (Auto) 0 % (0-3) Neutrophils # (Auto) 4.6 x10^3/uL (1.8-7.7) Lymphocytes # (Auto) 0.1 x10^3/uL (1.0-4.8) L Monocytes # (Auto) 0.0 x10^3/uL (0.0-1.1) Eosinophils # (Auto) 0.1 x10^3/uL (0.0-0.7) Basophils # (Auto) 0.0 x10^3/uL (0.0-0.2) Segmented Neutrophils % 93 % (35-66) H Band Neutrophils % 7 % (0-9) Toxic Granulation Slight Toxic Vacuolation Present Dohle Bodies Present Platelet Estimate Decreased (ADEQUATE) Poikilocytosis Slight Anisocytosis Slight Schistocytes Occ Prothrombin Time 14.1 SEC (11.7-14.0) H Prothrombin Time INR 1.1 (0.8-1.1) Activated Partial Thromboplast Time 27 SEC (24-38) Urine Collection Type Unknown Urine Color Yellow Urine Clarity Cloudy Urine pH 5.0 Urine Specific [place] 1.015 Urine Protein 30 mg/dL (NEG-TRACE) Urine Glucose (UA) Negative mg/dL (NEG) Urine Ketones (Stick) Negative mg/dL (NEG) Urine Blood Large (NEG) Urine Nitrite Negative (NEG) Urine Bilirubin Negative (NEG) Urine Urobilinogen Dipstick 1.0 mg/dL (0.2 mg/dL) Urine Leukocyte Esterase Large (NEG) Urine RBC 11-20 /HPF (0-2) Urine WBC 20-40 /HPF (0-4) Urine Bacteria Many /HPF (0-FEW) Sodium Level 136 mmol/L (136-145) Potassium Level 3.0 mmol/L (3.5-5.1) L Chloride Level 103 mmol/L (98-107) Carbon Dioxide Level 21 mmol/L (21-32) Anion Gap 12 (6-14) Blood Urea Nitrogen 29 mg/dL (8-26) H Creatinine 1.3 mg/dL (0.7-1.3) Estimated GFR (Cockcroft-Gault) 63.5 BUN/Creatinine Ratio 22 (6-20) H Glucose Level 81 mg/dL (70-99) Lactic Acid Level 5.3 mmol/L (0.4-2.0) *H Calcium Level 8.5 mg/dL (8.5-10.1) Magnesium Level 1.7 mg/dL (1.8-2.4) L Total Bilirubin 1.1 mg/dL (0.2-1.0) H Aspartate Amino Transferase (AST) 73 U/L (15-37) H Alanine Aminotransferase (ALT) 75 U/L (16-63) H Alkaline Phosphatase 258 U/L (46-116) H Creatine Kinase 27 U/L (39-308) L Creatine Kinase MB (Mass) 0.9 ng/mL (0.0-3.6) Creatine Kinase MB Relative Index % (0-4) Troponin I Quantitative 0.189 ng/mL (0.000-0.055) EV-Ijo-V-Type Natriuretic Peptide 6683 pg/mL (0-449) H Total Protein 6.3 g/dL (6.4-8.2) L Albumin 2.7 g/dL (3.4-5.0) L Albumin/Globulin Ratio 0.8 (1.0-1.7) L Laboratory Tests 01/02/20 15:35 Laboratory Tests 01/02/20 15:35 EKG EKG 1540- Afib rate 97, no STEMI read by Dr. Vasquez[] Radiology/Procedures Radiology/Procedures PROCEDURE: CHEST AP ONLY CHEST AP ONLY History: November 20, 2019 Comparison: Fever. Diminished lung sounds. Findings: No consolidation or pleural effusion. Normal heart size. No pneumothorax. Stable left-sided pacemaker. Bilateral glenohumeral and acromioclavicular DJD. Impression: 1. No acute cardiopulmonary process.[] Course & Med Decision Making Course & Med Decision Making Pertinent Labs and Imaging studies reviewed. (See chart for details) 1620 Spoke with patient's family who is now at the bedside. Pt's daughters report that the patient has been complaining of shortness of breath and chest tightness off and on for the last 4 or 5 days. Earlier this afternoon the patient reported 3 episodes of chest tightness and SOA in one hour so that is why they called the ambulance. Family states that this is patient's normal mental state and they deny and increased confusion. 1625- Spoke with Suha AGRICULTURE TEACHER with Dr. De Souza advised of patient's recent complaints of chest tightness and shortness of breath 1640- Family at the bedside report that patient has not been given any Tylenol or Ibuprofen for his fever, he was given a 325 mg Aspirin by family just before the ambulance arrive today. 1727- Spoke with Dr. Pineda who is the admitting physician, and care was assumed following discussion of patient. Will order vancomycin for pharmacy to dose as requested by Dr. Pineda. Advised Dr. Pineda that 1 gm of rocephin, 1gm of Tylenol, 600 of ibuprofen, 1L of NS, and heparin per CV protocol was given in the ER. Patient's vital signs stable: 125/59, HR 90, SpO2 98% RA, RR 20 . Patient remains febrile but temp is coming down now 100.0 axillary, appears ill, respirations even and unlabored. Patient will be admitted to the CVC floor. Patient's case and plan of care also discussed with Dr. Vasquez [] Jackeline Disclaimer Dr[place] Disclaimer This electronic medical record was generated, in whole or in part, using a voice recognition dictation system. Departure Departure Impression: Primary Impression: Non-STEMI (non-ST elevated myocardial infarction) Additional Impressions: UTI (urinary tract infection) Lactic acidosis Fever Disposition: ADMITTED INPATIENT Admitting Physician: Brandon Pineda Condition: STABLE Referrals: BRANDON PINEDA MD (PCP) Problem Qualifiers Additional Impressions: UTI (urinary tract infection) Urinary tract infection type: site unspecified Hematuria presence: with hematuria Qualified Codes: N39.0 - Urinary tract infection, site not specified; R31.9 - Hematuria, unspecified Fever Fever type: unspecified Qualified Codes: R50.9 - Fever, unspecified DU BERTRAND AUTOMOBILE CONTRACT CLERK Jan 02, 2020 15:50
[2020-01-02 15:51] LABS: BILIRUBIN,URINE NEGATIVE (NEG); CLARITY,URINE CLOUDY; COLOR,URINE YELLOW; NITRITE,URINE NEGATIVE (NEG); PROTEIN,URINE 30 mg/dL (NEG-TRACE)
--- NOTE | 2020-01-02 15:53 | EKG ---
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
[2020-01-02 15:58] LABS: BACTERIA,URINE MANY /HPF (0-FEW); WBC,URINE 20-40 /HPF (0-4)
[2020-01-02 15:59] LABS: CALCIUM 8.5 mg/dL (8.5-10.1); CREATININE 1.3 mg/dL (0.7-1.3); GFR 63.5
[2020-01-02 16:02] LABS: PROTHROMBIN TIME PATIENT 14.1 SEC (11.7-14.0)
[2020-01-02 16:08] LABS: INFLUENZA A PATIENT NEGATIVE (NEGATIVE); INFLUENZA B PATIENT NEGATIVE (NEGATIVE)
--- NOTE | 2020-01-02 16:11 | RAD ---
CHEST AP ONLY History: November 20, 2019 Comparison: Fever. Diminished lung sounds. Findings: No consolidation or pleural effusion. Normal heart size. No pneumothorax. Stable left-sided pacemaker. Bilateral glenohumeral and acromioclavicular DJD. Impression: 1. No acute cardiopulmonary process. Electronically signed by: Anders Lindsay DO (01/02/2020 4:09 PM) [id number]
[2020-01-02 16:14] LABS: ALBUMIN 2.7 g/dL (3.4-5.0); ALBUMIN/GLOBULIN RATIO 0.8 (1.0-1.7); MAGNESIUM 1.7 mg/dL (1.8-2.4); TOTAL BILIRUBIN 1.1 mg/dL (0.2-1.0); TOTAL PROTEIN 6.3 g/dL (6.4-8.2)
[2020-01-02 16:20] LABS: CREATINE KINASE 27 U/L (39-308)
[2020-01-02] MEDS ORDERED: HEPARIN for IV BOLUS 10,000 UNIT/10 ML VIAL. IV ONE (16:30)
[2020-01-02] MEDS ORDERED: ANTI-COAG MONITOR BY PHARMACY. MC PRN (16:30)
[2020-01-02] MEDS ORDERED: IV NORMAL SALINE 1000ML BAG 1,000 ML IV ONE (16:45)
[2020-01-02] MEDS ORDERED: ASPIRIN 325 MG TABLET PO ONE (16:45)
[2020-01-02] MEDS ORDERED: ACETAMINOPHEN 500 MG TABLET PO ONE (16:45)
[2020-01-02] MEDS ORDERED: cefTRIAXone IV Push 1 GM VIAL. IVP ONE (16:45)
[2020-01-02] MEDS ORDERED: IBUPROFEN 400 MG TABLET. PO ONE (16:45)
[2020-01-02 16:47] LABS: % BANDS 7 % (0-9); % SEGS 93 % (35-66); PLT ESTIMATE DECREASED (ADEQUATE)
[2020-01-02 16:48] LABS: ANISOCYTOSIS SLIGHT; POIKILOCYTOSIS SLIGHT; TOXIC VACUOLATION PRESENT
[2020-01-02 16:49] LABS: SCHISTOCYTES OCC
[2020-01-02 16:50] LABS: TOXIC GRANULATION SLIGHT
[2020-01-02] MEDS: HEPARIN 25,000UTS/250ML PREMIX 250 ML IV PRN (17:20)
[2020-01-02] MEDS ORDERED: VANCOMYCIN 1.5 GM in IV NORMAL SALINE 500ML BAG 500 ML IV ONE (18:00)
[2020-01-02] MEDS: VANCOMYCIN PER PHARMACY MC PRN (20:05)
--- NOTE | 2020-01-02 20:23 | NUR ---
Pharmacy Vancomycin Dosing Note S:Consulted to monitor and dose vancomycin started . O:BOO MEDINA is a 84 year old M with UTI . Height: 5 feet, 7 inches Weight: 64.0 kg [place] Body Weight: 66.10 Adjusted Body Weight: 65.26 Dosing Weight: Actual Other Antibiotics: LABS: Last BUN: 29 Last Creatinine: 1.3 Creatinine Clearance: 38 mL/min Last WBC: 4.8 Last Procalcitonin: Tmax (past 24 hours): 103.7 Microbiology: I/O: Drug Levels: Last level: on at Last dose given 01/02/20 at 1748 Vancomycin Dosing: Loading Dose: 1500 mg x1 Dosing Weight: Actual Target Trough: 10-20 A: Based on weight and Est. CrCl: P: 1. Vancomycin 1500mg, followed by Vancomycin 1000 mg IV q24h. 2. Follow up Trough level on 01/04/20 at 1730. 3. Pharmacy will continue to monitor, follow and adjust therapy as needed. Octavio Mina Brain, 01/02/202022
[2020-01-02 21:15] VITALS: BP 115/55
--- NOTE | 2020-01-02 22:00 | NUR ---
A 84 Y.O. MALE ADMITTED TO ROOM 248, ACCOMPANIED BY LARGE NUMBER OF FAMILY MEMBERS. ADMISSION PACKET GIVEN, PLAN OF CARE EXPLAINED,PT VSS, CONT ON HEPARIN GTT PER ORDER, WILL CONT TO MONITOR PT STATUS AND SAFETY CALL LIGHT IN PLACE. PMRN
[2020-01-02] MEDS ORDERED: MAGNESIUM SULFATE 2GM 50 ML IV ONE (22:30)
[2020-01-02 23:00] VITALS: BP 111/79
[2020-01-02] MEDS: ATORVASTATIN CALCIUM 40 MG TABLET. PO SCH (23:41)
[2020-01-02] MEDS: TAMSULOSIN 0.4 MG CAP.ER.24H. PO SCH (23:42)
[2020-01-03] MEDS: HEPARIN for IV BOLUS 10,000 UNIT/10 ML VIAL. IV PRN ×2 (00:23→13:25)
[2020-01-03] MEDS: traZODone 50 MG TABLET. PO SCH ×2 (00:24→20:40)
[2020-01-03 03:38] VITALS: BP 133/69
[2020-01-03 05:09] LABS: HEMATOCRIT 33.3 % (39.0-53.0); HEMOGLOBIN 11.1 g/dL (13.0-17.5); RED BLOOD COUNT 3.89 x10^6/uL (4.30-5.70); WHITE BLOOD COUNT 16.8 x10^3/uL (4.0-11.0)
[2020-01-03 05:30] LABS: CHOLESTEROL/HDL RATIO 6.1
[2020-01-03 06:49] VITALS: BP 116/63
--- NOTE | 2020-01-03 09:10 | EKG ---
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
--- NOTE | 2020-01-03 09:56 | PDOC ---
Provider Note Provider Note Pt seen.H&P dictated. #[id number] GUILLE PINEDA MD Jan 03, 2020 09:56
[2020-01-03 10:05] VITALS: BP 122/58
[2020-01-03] MEDS: ALLOPURINOL 300 MG TABLET. PO SCH (10:06)
[2020-01-03] MEDS: TAMSULOSIN 0.4 MG CAP.ER.24H. PO SCH ×2 (10:06→20:40)
[2020-01-03] MEDS: LOSARTAN POTASSIUM 50 MG TABLET. PO SCH (10:07)
[2020-01-03] MEDS: METOPROLOL SUCC 24HR ER 25 MG TAB.ER.24H. PO SCH (10:08)
[2020-01-03] MEDS: ASPIRIN 325 MG TABLET PO SCH (10:08)
--- NOTE | 2020-01-03 10:26 | HP ---
ADMIT DATE: 01/02/2020 LOCATION: 248. REASON FOR ADMISSION TO THE HOSPITAL: Confusion, sepsis, and non-STEMI. HISTORY OF PRESENT ILLNESS: The patient is an 84-year-old male patient has a history of hypertension, dementia, benign prostatic hypertrophy, he also has a sick sinus syndrome, and has a pacemaker. [facility] came and visited him and felt he was more confused and was brought to the hospital after the call 911 and denies any problems after he came to the ER. His blood test was normal, but his lactic acid was high at 5. Urine shows nitrites and leukocytes positive and it was felt that he could have sepsis from urinary tract infection. He also had a slightly elevated troponin. Denies any chest pain. EKG negative for acute ischemia. The patient was consulted by Cardiology and started on heparin drip. PAST MEDICAL HISTORY: CAD, CHF, sick sinus syndrome, dementia, and hypertension. PAST SURGICAL HISTORY: Pacemaker and previous history stents in the past. PERSONAL HISTORY: Smoking: History of smoking, denies smoking right now. Alcohol: denies. Street drugs: None. ALLERGIES: None. MEDICATIONS AT HOME: Allopurinol 300 mg daily for gout, aspirin 325 daily, atorvastatin 40 mg daily, felodipine 5 mg daily, losartan 50 mg daily, metoprolol 25 mg daily, Flomax 0.4 twice a day, tramadol 50 mg q.6 hours, and trazodone 50 mg at bedtime. FAMILY HISTORY: Unremarkable. SOCIAL HISTORY: Lives with his . Ambulates with a walker. REVIEW OF SYSTEMS: Denies any chest pain or shortness of breath. Slightly confused than usual. No fever. PHYSICAL EXAMINATION: VITAL SIGNS: At the time of admission shows a temperature of 103.7, pulse 109, respirations 22, blood pressure 140/93, and saturating 96 on room air. HEENT: Head is atraumatic. Pupils equal. Oral cavity: No congestion. NECK: Supple. Thyroid not enlarged. JVD not elevated. CHEST: Symmetrical. CARDIOVASCULAR: S1 and S2. LUNGS: Few crackles at the bases. Pacemaker in left side of the chest. ABDOMEN: There is tenderness in the suprapubic area. No rebound. Bowel sounds present. No mass palpable. EXTERNAL GENITALIA: No [place]. RECTAL: Deferred. EXTREMITIES: Arthritis in the hand and the legs. NEUROLOGIC: The patient is able to make a conversation and moving extremities. LABORATORY DATA: Shows a white count of 4.8 went up to 17, hemoglobin 11, and platelets 97 came down to 86, heparin drip. Electrolytes show sodium 136, potassium 3.0, chloride 103, bicarbonate 21, anion gap 12, BUN 29, creatinine 1.3, and glucose 81. Lactic acid is 5.3. Magnesium 1.7. LFT 73. AST, ALT 75 and alk phos 258. Troponin was 0.189 and peaked to 3.4. Lactic acid came down to 2.3. Cholesterol 110. Urine shows 20-40 wbc's, large blood, and leukocyte esterase was large. Serology negative for influenza A and B. Chest x-ray: No acute infiltration. FINAL IMPRESSION: 1. Fever. 2. Sepsis with elevated white count. 3. Urinary tract infection, possible pyelonephritis, possible prostatitis. 4. Elevated troponin, non-ST elevation myocardial infarction. 5. History of pacemaker for sick sinus syndrome. 6. History of stents in the past. 7. Dementia. 8. Hypertension. 9. Arthritis, history of gout. PLAN: At this time, was admit to hospital. Urine and blood cultures. Start on vancomycin and Rocephin. We will change it to vancomycin and Zosyn. ID consult. We will get a CT of the abdomen and pelvis, look at the prostate and the kidneys. Also, the patient is on heparin drip for non-STEMI. Echocardiogram for left ventricular function and see how the patient's condition improves in the next 24-48 hours. The patient is pain free at this point. Try to contact the patient's , left a message. GUILLE PINEDA MD DR: MELISSA/michelle JOB#: [id number] / [id number]
[2020-01-03] MEDS: VANCOMYCIN PER PHARMACY MC PRN (10:39)
--- NOTE | 2020-01-03 10:39 | PDOC ---
Infectious Disease Note Vital Sign Vital Signs Vital Signs Date Time Temp Pulse Resp B/P (MAP) Pulse Ox O2 Delivery O2 Flow Rate FiO2 01/03/20 10:08 80 122/58 01/03/20 10:05 97.2 12 100 Room Air 97.2 01/03/20 06:49 1.0 Labs Lab Laboratory Tests Test 01/02/20 15:30 01/02/20 15:35 01/02/20 19:11 01/02/20 23:20 Influenza Type A Antigen Negative (NEGATIVE) Influenza Type B Antigen Negative (NEGATIVE) White Blood Count 4.8 x10^3/uL (4.0-11.0) Red Blood Count 3.72 x10^6/uL (4.30-5.70) Hemoglobin 10.7 g/dL (13.0-17.5) Hematocrit 31.9 % (39.0-53.0) Mean Corpuscular Volume 86 fL (79-100) Mean Corpuscular Hemoglobin 29 pg (25-35) Mean Corpuscular Hemoglobin Concent 34 g/dL (31-37) Red Cell Distribution Width 15.6 % (11.5-14.5) Platelet Count 97 x10^3/uL (140-400) Neutrophils (%) (Auto) 96 % (31-73) Lymphocytes (%) (Auto) 2 % (24-48) Monocytes (%) (Auto) 0 % (0-9) Eosinophils (%) (Auto) 1 % (0-3) Basophils (%) (Auto) 0 % (0-3) Neutrophils # (Auto) 4.6 x10^3/uL (1.8-7.7) Lymphocytes # (Auto) 0.1 x10^3/uL (1.0-4.8) Monocytes # (Auto) 0.0 x10^3/uL (0.0-1.1) Eosinophils # (Auto) 0.1 x10^3/uL (0.0-0.7) Basophils # (Auto) 0.0 x10^3/uL (0.0-0.2) Segmented Neutrophils % 93 % (35-66) Band Neutrophils % 7 % (0-9) Toxic Granulation Slight Toxic Vacuolation Present Dohle Bodies Present Platelet Estimate Decreased (ADEQUATE) Poikilocytosis Slight Anisocytosis Slight Schistocytes Occ Prothrombin Time 14.1 SEC (11.7-14.0) Prothromb Time International Ratio 1.1 (0.8-1.1) Activated Partial Thromboplast Time 27 SEC (24-38) Urine Collection Type Unknown Urine Color Yellow Urine Clarity Cloudy Urine pH 5.0 Urine Specific [place] 1.015 Urine Protein 30 mg/dL (NEG-TRACE) Urine Glucose (UA) Negative mg/dL (NEG) Urine Ketones (Stick) Negative mg/dL (NEG) Urine Blood Large (NEG) Urine Nitrite Negative (NEG) Urine Bilirubin Negative (NEG) Urine Urobilinogen Dipstick 1.0 mg/dL (0.2 mg/dL) Urine Leukocyte Esterase Large (NEG) Urine RBC 11-20 /HPF (0-2) Urine WBC 20-40 /HPF (0-4) Urine Bacteria Many /HPF (0-FEW) Sodium Level 136 mmol/L (136-145) Potassium Level 3.0 mmol/L (3.5-5.1) Chloride Level 103 mmol/L (98-107) Carbon Dioxide Level 21 mmol/L (21-32) Anion Gap 12 (6-14) Blood Urea Nitrogen 29 mg/dL (8-26) Creatinine 1.3 mg/dL (0.7-1.3) Estimated GFR (Cockcroft-Gault) 63.5 BUN/Creatinine Ratio 22 (6-20) Glucose Level 81 mg/dL (70-99) Lactic Acid Level 5.3 mmol/L (0.4-2.0) 2.3 mmol/L (0.4-2.0) Calcium Level 8.5 mg/dL (8.5-10.1) Magnesium Level 1.7 mg/dL (1.8-2.4) Total Bilirubin 1.1 mg/dL (0.2-1.0) Aspartate Amino Transf (AST/SGOT) 73 U/L (15-37) Alanine Aminotransferase (ALT/SGPT) 75 U/L (16-63) Alkaline Phosphatase 258 U/L (46-116) Creatine Kinase 27 U/L (39-308) Creatine Kinase MB (Mass) 0.9 ng/mL (0.0-3.6) Creatine Kinase MB Relative Index % (0-4) Troponin I Quantitative 0.189 ng/mL (0.000-0.055) 2.182 ng/mL (0.000-0.055) CC-Tvp-C-Type Natriuretic Peptide 6683 pg/mL (0-449) Total Protein 6.3 g/dL (6.4-8.2) Albumin 2.7 g/dL (3.4-5.0) Albumin/Globulin Ratio 0.8 (1.0-1.7) Heparin Anti-Xa Act, Unfractionated 0.10 IU/mL (0.30-0.70) Test 01/03/20 00:57 01/03/20 03:44 01/03/20 04:45 Troponin I Quantitative 3.462 ng/mL (0.000-0.055) 3.369 ng/mL (0.000-0.055) Glucose (Fingerstick) 107 mg/dL (70-99) White Blood Count 16.8 x10^3/uL (4.0-11.0) Red Blood Count 3.89 x10^6/uL (4.30-5.70) Hemoglobin 11.1 g/dL (13.0-17.5) Hematocrit 33.3 % (39.0-53.0) Mean Corpuscular Volume 86 fL (79-100) Mean Corpuscular Hemoglobin 29 pg (25-35) Mean Corpuscular Hemoglobin Concent 33 g/dL (31-37) Red Cell Distribution Width 16.0 % (11.5-14.5) Platelet Count 86 x10^3/uL (140-400) Heparin Anti-Xa Act, Unfractionated 0.26 IU/mL (0.30-0.70) Triglycerides Level 73 mg/dL (0-150) Cholesterol Level 110 mg/dL (0-200) LDL Cholesterol, Calculated 77 mg/dL (0-100) VLDL Cholesterol, Calculated 15 mg/dL (0-40) Non-HDL Cholesterol Calculated 92 mg/dL (0-129) HDL Cholesterol 18 mg/dL (40-60) Cholesterol/HDL Ratio 6.1 Micro Microbiology 01/02/20 Blood Culture - Final, Complete Objective Assessment PT SEEN, CONSULT DICTATED Plan Plan of Care / GIL ARAGON MD Jan 03, 2020 10:39
[2020-01-03 10:43] LABS: CALCIUM 8.5 mg/dL (8.5-10.1); CREATININE 1.4 mg/dL (0.7-1.3); GFR 58.3; POTASSIUM 3.6 mmol/L (3.5-5.1)
--- NOTE | 2020-01-03 11:06 | PDOC2 ---
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 He is a poor historian and his daughter and I talked and reports that he has been having intermittent chest tightness in the last week. Also with some SOA particularly with exertion. Also accdg to daughter he has been having foul smelling urine. His has been weak. No recent falls or injury. No n/v. PAST MEDICAL HISTORY Past Medical History Cardiovascular: CAD, HTN, Hyperlipidemia, Other (peripheral vascular disease; SSS) Musculoskeletal: Osteoarthritis Infectious disease: No pertinent hx ENT: No pertinent hx Renal/: No pertinent hx Endocrine: No pertinent hx Dermatology: No pertinent hx PAST SURGICAL HISTORY Past Surgical History Pacemaker ([facility]), Other (PCI/stent 2001 ) FAMILY HISTORY Family History: Heart Disease, Hypertension SOCIAL HISTORY Smoke: No ALCOHOL: none Drugs: None Lives: with Family CURRENT MEDICATIONS CURRENT MEDICATIONS Current Medications Medications (Trade) Dose Ordered Sig/Kalyn Route PRN Reason Start Time Stop Time Status Last Admin Dose Admin Heparin Sodium (Porcine) (Heparin Sodium) 3,850 unit 1X ONCE IV 01/02/20 16:30 01/02/20 16:31 DC 01/02/20 17:18 Heparin Sodium/ Dextrose 250 ml @ 0 mls/hr CONT PRN IV PER PROTOCOL 01/02/20 16:30 01/02/20 17:20 Heparin Sodium (Porcine) (Heparin Sodium) 1,600 unit PRN Q6HRS PRN IV FOR UFH LEVEL LESS THAN 0.2 01/02/20 16:30 01/03/20 00:23 Info (Anti-Coagulation Monitoring By Pharmacy) 1 each PRN DAILY PRN MC SEE COMMENTS 01/02/20 16:30 01/03/20 10:37 Ceftriaxone Sodium (Rocephin) 1 gm 1X ONCE IVP 01/02/20 16:45 01/02/20 16:46 DC 01/02/20 17:02 Sodium Chloride 1,000 ml @ 1,000 mls/hr 1X ONCE IV 01/02/20 16:45 01/02/20 17:44 DC 01/02/20 17:03 Acetaminophen (Tylenol) 1,000 mg 1X ONCE PO 01/02/20 16:45 01/02/20 16:46 DC 01/02/20 17:02 Ibuprofen (Motrin) 600 mg 1X ONCE PO 01/02/20 16:45 01/02/20 16:46 DC 01/02/20 17:03 Vancomycin HCl (Vanco Per Pharmacy) 1 each PRN DAILY PRN MC SEE COMMENTS 01/02/20 17:30 01/03/20 10:39 Vancomycin HCl 1.5 gm/Sodium Chloride 500 ml @ 250 mls/hr 1X ONCE IV 01/02/20 18:00 01/02/20 19:59 DC 01/02/20 17:48 Magnesium Sulfate 50 ml @ 25 mls/hr 1X ONCE IV 01/02/20 22:30 01/03/20 00:29 DC 01/02/20 23:42 Allopurinol (Zyloprim) 300 mg DAILY PO 01/03/20 09:00 01/03/20 10:06 Aspirin (Adilson Aspirin) 325 mg DAILYWBKFT PO 01/03/20 08:00 01/03/20 10:08 Atorvastatin Calcium (Lipitor) 40 mg QHS PO 01/02/20 22:45 01/02/20 23:41 Losartan Potassium (Cozaar) 50 mg DAILY PO 01/03/20 09:00 01/03/20 10:07 Metoprolol Succinate (Toprol Xl) 25 mg DAILY PO 01/03/20 09:00 01/03/20 10:08 Tamsulosin HCl (Flomax) 0.4 mg BID PO 01/02/20 22:45 01/03/20 10:06 Trazodone HCl (Desyrel) 50 mg QHS PO 01/02/20 22:45 01/03/20 00:24 ALLERGIES ALLERGIES: Coded Allergies: No Known Drug Allergies (Unverified , 09/18/19) ROS Review of System unrelaiabl PHYSICAL EXAM General: Alert, Cooperative, No acute distress HEENT: Atraumatic, Mucous membr. moist/pink Lungs: Other (diminsihed bases) Heart: Regular rate (atrial pacing), Normal S1, Normal S2, Other (3/6 systolic murmur to LLS border) Abdomen: Soft, No tenderness Extremities: No cyanosis Skin: No breakdown, No significant lesion Neuro: Normal speech, Sensation intact Psych/Mental Status: Other (pleasantly confused) MUSCULOSKELETAL: Osteoarthritic changes both hands VITALS/I&O VITALS/I&O: Vital Signs Date Time Temp Pulse Resp B/P (MAP) Pulse Ox O2 Delivery O2 Flow Rate FiO2 01/03/20 10:08 80 122/58 01/03/20 10:05 97.2 12 100 Room Air 97.2 01/03/20 06:49 1.0 I & O 01/02/20 01/02/20 01/03/20 14:59 22:59 06:59 Intake Total 1500 ml 120 ml Balance 1500 ml 120 ml LABS Lab: Laboratory Tests Test 01/02/20 15:30 01/02/20 15:35 01/02/20 19:11 01/02/20 23:20 Influenza Type A Antigen Negative (NEGATIVE) Influenza Type B Antigen Negative (NEGATIVE) White Blood Count 4.8 x10^3/uL (4.0-11.0) Red Blood Count 3.72 x10^6/uL (4.30-5.70) L Hemoglobin 10.7 g/dL (13.0-17.5) L Hematocrit 31.9 % (39.0-53.0) L Mean Corpuscular Volume 86 fL (79-100) Mean Corpuscular Hemoglobin 29 pg (25-35) Mean Corpuscular Hemoglobin Concent 34 g/dL (31-37) Red Cell Distribution Width 15.6 % (11.5-14.5) H Platelet Count 97 x10^3/uL (140-400) L Neutrophils (%) (Auto) 96 % (31-73) H Lymphocytes (%) (Auto) 2 % (24-48) L Monocytes (%) (Auto) 0 % (0-9) Eosinophils (%) (Auto) 1 % (0-3) Basophils (%) (Auto) 0 % (0-3) Neutrophils # (Auto) 4.6 x10^3/uL (1.8-7.7) Lymphocytes # (Auto) 0.1 x10^3/uL (1.0-4.8) L Monocytes # (Auto) 0.0 x10^3/uL (0.0-1.1) Eosinophils # (Auto) 0.1 x10^3/uL (0.0-0.7) Basophils # (Auto) 0.0 x10^3/uL (0.0-0.2) Segmented Neutrophils % 93 % (35-66) H Band Neutrophils % 7 % (0-9) Toxic Granulation Slight Toxic Vacuolation Present Dohle Bodies Present Platelet Estimate Decreased (ADEQUATE) Poikilocytosis Slight Anisocytosis Slight Schistocytes Occ Prothrombin Time 14.1 SEC (11.7-14.0) H Prothrombin Time INR 1.1 (0.8-1.1) Activated Partial Thromboplast Time 27 SEC (24-38) Urine Collection Type Unknown Urine Color Yellow Urine Clarity Cloudy Urine pH 5.0 Urine Specific [place] 1.015 Urine Protein 30 mg/dL (NEG-TRACE) Urine Glucose (UA) Negative mg/dL (NEG) Urine Ketones (Stick) Negative mg/dL (NEG) Urine Blood Large (NEG) Urine Nitrite Negative (NEG) Urine Bilirubin Negative (NEG) Urine Urobilinogen Dipstick 1.0 mg/dL (0.2 mg/dL) Urine Leukocyte Esterase Large (NEG) Urine RBC 11-20 /HPF (0-2) Urine WBC 20-40 /HPF (0-4) Urine Bacteria Many /HPF (0-FEW) Sodium Level 136 mmol/L (136-145) Potassium Level 3.0 mmol/L (3.5-5.1) L Chloride Level 103 mmol/L (98-107) Carbon Dioxide Level 21 mmol/L (21-32) Anion Gap 12 (6-14) Blood Urea Nitrogen 29 mg/dL (8-26) H Creatinine 1.3 mg/dL (0.7-1.3) Estimated GFR (Cockcroft-Gault) 63.5 BUN/Creatinine Ratio 22 (6-20) H Glucose Level 81 mg/dL (70-99) Lactic Acid Level 5.3 mmol/L (0.4-2.0) *H 2.3 mmol/L (0.4-2.0) H Calcium Level 8.5 mg/dL (8.5-10.1) Magnesium Level 1.7 mg/dL (1.8-2.4) L Total Bilirubin 1.1 mg/dL (0.2-1.0) H Aspartate Amino Transferase (AST) 73 U/L (15-37) H Alanine Aminotransferase (ALT) 75 U/L (16-63) H Alkaline Phosphatase 258 U/L (46-116) H Creatine Kinase 27 U/L (39-308) L Creatine Kinase MB (Mass) 0.9 ng/mL (0.0-3.6) Creatine Kinase MB Relative Index % (0-4) Troponin I Quantitative 0.189 ng/mL (0.000-0.055) 2.182 ng/mL (0.000-0.055) IF-Pqm-W-Type Natriuretic Peptide 6683 pg/mL (0-449) H Total Protein 6.3 g/dL (6.4-8.2) L Albumin 2.7 g/dL (3.4-5.0) L Albumin/Globulin Ratio 0.8 (1.0-1.7) L Heparin Anti-Xa Act, Unfractionated 0.10 IU/mL (0.30-0.70) L Test 01/03/20 00:57 01/03/20 03:44 01/03/20 04:45 Troponin I Quantitative 3.462 ng/mL (0.000-0.055) 3.369 ng/mL (0.000-0.055) Glucose (Fingerstick) 107 mg/dL (70-99) H White Blood Count 16.8 x10^3/uL (4.0-11.0) H Red Blood Count 3.89 x10^6/uL (4.30-5.70) L Hemoglobin 11.1 g/dL (13.0-17.5) L Hematocrit 33.3 % (39.0-53.0) L Mean Corpuscular Volume 86 fL (79-100) Mean Corpuscular Hemoglobin 29 pg (25-35) Mean Corpuscular Hemoglobin Concent 33 g/dL (31-37) Red Cell Distribution Width 16.0 % (11.5-14.5) H Platelet Count 86 x10^3/uL (140-400) L Heparin Anti-Xa Act, Unfractionated 0.26 IU/mL (0.30-0.70) L Triglycerides Level 73 mg/dL (0-150) Cholesterol Level 110 mg/dL (0-200) LDL Cholesterol, Calculated 77 mg/dL (0-100) VLDL Cholesterol, Calculated 15 mg/dL (0-40) Non-HDL Cholesterol Calculated 92 mg/dL (0-129) HDL Cholesterol 18 mg/dL (40-60) L Cholesterol/HDL Ratio 6.1 Laboratory Tests 01/02/20 15:35 01/03/20 04:45 Laboratory Tests 01/02/20 15:35 ECHOCARDIOGRAM ECHOCARDIOGRAM <Conclusion> The left ventricular systolic function is normal. The Ejection Fraction is 55-60%. There is a pacemaker lead in the right atrium and ventricle. There is no evidence of significant pericardial effusion. DATE: 11/21/19 1417 STRESS TEST STRESS TEST Conclusion 1. Regadenoson cardioisotope stress test showed diaphragmatic attenuation artifact without any evidence of ischemia or infarct. 2. Normal left ventricular systolic function with ejection fraction calculated at 65%. 3. Low risk for cardiac events. DATE: 06/11/19 1417 ASSESSMENT/PLAN ASSESSMENT/PLAN 1. NSTEMI: Peaked trop at 3.4. currently CP free. 2. UTI/sepsis/bacteremia: Tmax 103.7 3. Metabolic encephaloapthy 4. HTN: controlled 5. CAD; stent in 2001. recent MPI 05/2019 nml. Recent EF nml 6. PAD: clincally stable. prior stent placement ro RLE 7. SSS: S/P PPM ([facility]) 8. Thrombocytopenia: 86. possible reactive to sepsis 9. Hx of PAT Recommendations 1. Continue with heparin for now. Monitor PLT. Continue ASA and may add plavix based on PLT level 2. Interrogate device 3. Secondary prevention. 4. Symptomatology compatible with ischemia, discuss with daughter and will talk with pt for possible LHC on Monday. At this time continue optimization and antibiotic treatment per DANIELA BALLESTEROS MD 01/03/20 1743: CARDIAC CONSULT ASSESSMENT/PLAN ASSESSMENT/PLAN Patient seen and examined Non-ST elevated myocardial infarction. Pain free. Feeling better this afternoon. Continuing medical treatment. UTI with possible sepsis. Febrile as above. Antibiotics and treatment as per the primary service. History of coronary disease. Treatment as outlined above. Artery disease with previous stenting. MPI testing last year was normal. Peripheral arterial disease. Permanent pacemaker. We'll continue present treatment. Monitor platelet count. Will consider possible catheterization in the next several days based on the patient's clinical course and his wishes. Thank you for allowing us to participate in the care of your patient ANUEL BLAND APRN Jan 03, 2020 11:06 DANIELA BETANCUR MD Jan 03, 2020 17:43
--- NOTE | 2020-01-03 11:23 | CONS ---
DATE OF CONSULTATION: 01/03/2020 REQUESTING PHYSICIAN: Brandon Johnson MD REASON FOR CONSULTATION: Sepsis. HISTORY OF PRESENT ILLNESS: This is an 84-year-old -[place] gentleman with a history of coronary artery disease, CHF, and dementia, who has been taken care of by at home, was brought in because of the fever and more confusion than his usual. The patient was brought in. The patient had 103 fever. Lactic acid 5.3 and now the blood cultures positive with gram-negative ramandeep. The patient's urinalysis showed 20-40 wbc's. The patient is on vancomycin and Zosyn. Fevers have improved. White count is high. The patient denies any nausea, vomiting, or diarrhea. He was able to say that he had a small amount of frequent urination, but the patient has advanced dementia and not much meaningful history can be obtained through him. PAST MEDICAL HISTORY: Positive for CHF, coronary artery disease, sick sinus syndrome with pacemaker in place, dementia, hypertension. SOCIAL HISTORY: Negative for smoking, alcohol, or illicit drug use. Taken care of by at home. ALLERGIES: No known drug allergies. CURRENT MEDICATIONS: Reviewed. REVIEW OF SYSTEMS: As per HPI, all other systems reviewed and are negative. PHYSICAL EXAMINATION: GENERAL: Alert, oriented to person, not in distress. VITAL SIGNS: Stable. T-max 103.7. HEENT: NAD. NECK: Supple, no JVP, no lymphadenopathy. LUNGS: Clear. HEART: S1, S2 regular. ABDOMEN: Benign. EXTREMITIES: No edema or cyanosis. SKIN: Unremarkable. There is no CVA tenderness. LABORATORY DATA: White count is 16.8, hemoglobin 11.1, platelets are 86,000. BUN and creatinine is 29 and 1.3. Lactic acid improved to 2.3 yesterday, they have not repeated after that. Urinalysis as mentioned. Influenza screen is negative. Blood culture is positive with gram-negative ramandeep. He had a chest x-ray, which is unremarkable. IMPRESSION: 1. Gram-negative sepsis. 2. Lactic acidosis. 3. Fever. 4. Leukocytosis. 5. Urinary tract infection with sepsis. 6. Dementia. 7. Coronary artery disease. RECOMMENDATIONS: We will discontinue vancomycin, continue Zosyn. Await identification of the organism and to adjust. Get a bladder scan. Supportive care and we will continue to follow. Thank you very much, Dr. Johnson, for giving me the opportunity to participate in this patient's care. GIL ARAGON MD DR: JADIEL/michelle JOB#: [id number] / [id number]
[2020-01-03] MEDS ORDERED: IOHEXOL 300 MG/ML 100ML VIAL. IV ONE (11:30)
[2020-01-03] MEDS ORDERED: CONTRAST GIVEN. MC PRN (11:30)
[2020-01-03] MEDS ORDERED: IOHEXOL 240 MG/ML 50ML VIAL. PO ONE (11:30)
--- NOTE | 2020-01-03 11:30 | NUR ---
Patient urinated 225 ml of cloudy, ralph colored urine. PVR is 125ml.
[2020-01-03] MEDS: PIPERACILLIN/TAZOBACTAM 3.375 GM in IV NORMAL SALINE 50ML 50 ML IV SCH ×2 (13:22→18:53)
[2020-01-03 14:20] VITALS: BP 104/51
--- NOTE | 2020-01-03 15:21 | NUR ---
SS following for discharge planning. SS reviewed pt chart. Pt is from home with spouse and is currently on room air. SS will continue to follow for discharge planning.
--- NOTE | 2020-01-03 17:06 | CARD ---
MR#: [id number] Date of Study: 01/03/2020 Ordering Physician: GUILLE PINEDA, Referring Physician: GUILLE PINEDA, Tech: Emilie Harper [facility] APPROVED REPORT EXAM: Two-dimensional and M-mode echocardiogram with Doppler and color Doppler. Other Information Quality : AverageHR: 70bpm Rhythm : Atrial Fibrillation INDICATION Dyspnea Congestive Heart Failure NSTEMI, Ventricular tachycardia 2D DIMENSIONS RVDd3.5 (2.9-3.5cm)Left Atrium(2D)3.2 (1.6-4.0cm) IVSd1.2 (0.7-1.1cm)Aortic Root(2D)3.5 (2.0-3.7cm) LVDd5.2 (3.9-5.9cm)LVOT Diameter2.1 (1.8-2.4cm) PWd1.0 (0.7-1.1cm)LVDs3.8 (2.5-4.0cm) FS (%) 26.7 %SV65.9 ml Aortic Valve AoV Peak Dayo.205.9cm/sAoV VTI44.8cm AO Peak GR.17.0mmHgLVOT VTI 15.97cm AO Mean GR.11mmHgAI P 1/2 Sffl222bn Mitral Valve MV E Mhvivllz21.9cm/sMV E Peak Gr.3mmHg MV DECEL [id number] A Dnkkmftw81.7cm/s MV E Mean Gr.1mmHgE/A Ratio1.0 TDI Lateral E' P. V5.53cm/sMedial E' P. V3.67cm/s E/Lateral E'13.7E/Medial E'20.7 Tricuspid Valve TR P. Cuztrrsl523df/sRAP [id number] TR Peak Gr.[id number] LEFT VENTRICLE The left ventricle is normal size. There is borderline concentric left ventricular hypertrophy. The L V systolic function is mildly impaired. The Ejection Fraction is 40-45%. There is mild global hypokin esis of the left ventricle. Transmitral Doppler flow pattern is Grade I-abnormal relaxation pattern. RIGHT VENTRICLE The right ventricle is normal size. There is normal right ventricular wall thickness. The right ventr icular systolic function is normal. Device leads are present in the right ventricle and atrium. ATRIA The left atrium is mildly dilated. The right atrium size is normal. The interatrial septum is intact with no evidence for an atrial septal defect or patent foramen ovale as noted on 2-D or Doppler imagi ng. AORTIC VALVE The aortic valve is moderately sclerotic. Doppler and Color Flow revealed mild aortic regurgitation. There is no valvular aortic stenosis. MITRAL VALVE The mitral valve is normal in structure and function. There is no evidence of mitral valve prolapse. There is no mitral valve stenosis. Doppler and Color-flow revealed mild mitral regurgitation. TRICUSPID VALVE The tricuspid valve is normal in structure and function. There is mild tricuspid valve regurgitation noted with PAP of 36 mmHg. There is no tricuspid valve prolapse or vegetation. There is no tricuspid valve stenosis. PULMONIC VALVE The pulmonary valve is normal in structure and function. There is no pulmonic valvular regurgitation. There is no pulmonic valvular stenosis. GREAT VESSELS The aortic root is normal in size. The ascending aorta is normal in size. The pulmonary artery is nor mal. The IVC is normal in size and collapses >50% with inspiration. PERICARDIAL EFFUSION There is no pleural effusion. The pericardium appears normal. Critical Notification Critical Value: No <Conclusion> The left ventricle is normal size. The LV systolic function is mildly impaired. The Ejection Fraction is estimated at 40-45%. There is mild global hypokinesis of the left ventricle. There is borderline concentric left ventricular hypertrophy. Device leads are present in the right ventricle and atrium. Doppler and Color Flow revealed mild aortic regurgitation. There is no valvular aortic stenosis. Doppler and Color-flow revealed mild mitral regurgitation. There is mild tricuspid valve regurgitation noted with PAP of 36 mmHg. Signed by : Dionte Rutledge MD Electronically Approved : 01/03/2020 17:05:26
[2020-01-03] MEDS ORDERED: VANCOMYCIN 1 GM in IV NORMAL SALINE 250ML 250 ML IV SCH (18:00)
[2020-01-03] MEDS: amLODIPine BESYLATE 5 MG TABLET PO SCH (18:52)
[2020-01-03] MEDS: HEPARIN 25,000UTS/250ML PREMIX 250 ML IV PRN (19:02)
[2020-01-03 19:20] VITALS: BP 136/68
--- NOTE | 2020-01-03 19:33 | RAD ---
EXAM: CT Abdomen and Pelvis with IV contrast INDICATION: Prostatitis and pyelonephritis with sepsis. TECHNIQUE: Multi-detector row CT images were acquired from the lung bases through the abdomen and pelvis with the use of IV contrast. Sagittal and coronal images were acquired from the transaxial data. All CT scans performed at this facility utilize dose optimization techniques as appropriate to the exam, including the following: Automated exposure control and adjustment of the mA and/or KV according to patient size (this includes techniques or standardized protocols for targeted exams where dose is indication/reason for exam). IV CONTRAST: Administered ORAL CONTRAST: Administered COMPARISON: None FINDINGS: There are some motion artifact in the pelvis that degrades detail. LOWER CHEST: Mild cardiomegaly and small bilateral pleural effusions. LIVER: Unremarkable BILIARY SYSTEM: Gallbladder is unremarkable. Bile ducts are not dilated. PANCREAS: Mild generalized atrophy. No ductal dilation. SPLEEN: Unremarkable ADRENALS: Ill-defined fullness of the left adrenal gland. The right adrenal is unremarkable. KIDNEYS & URETERS: Exophytic 6 cm dominant cyst in the left kidney requiring no specific further follow-up. Kidneys otherwise unremarkable.. BLADDER: Mild diffuse urinary bladder wall thickening in the setting of under distention. REPRODUCTIVE ORGANS: Enlarged prostate measuring 7 cm in transverse diameter. GASTROINTESTINAL: Oral contrast administered opacifies several loops of small bowel with nonopacification of distal small bowel loops or the large bowel. There is gradual dilution of enteric contrast in bowel loops until no enteric contrast is identified in small bowel loops interposed over the left hepatic lobe. The appendix is normal. MESENTERY/PERITONEUM/RETROPERITONEUM: Unremarkable ascites. No free air. VASCULAR: Extensive arterial calcifications are present with a right common iliac artery stent present. There is circumferential luminal low density suggesting intimal hyperplasia. LYMPH NODES: No adenopathy OSSEOUS & SOFT TISSUES: There is a radiopaque foreign body in the right pelvis whose evaluation is somewhat obscured by motion artifact. Extensive degenerative changes in the lumbar spine are present. There is a rounded lucency in the superior endplate of L3 (image 40 of 73 on sagittal series 5) that is of uncertain significance. It could represent a subchondral cyst. There is mild body wall edema. IMPRESSION: 1. Bowel interposition of the liver with nonopacification of distal bowel loops but enteric contrast is suspicious for low-grade small bowel obstruction. No findings of bowel perforation or abscess formation. 2. No findings suspicious for a renal abscess with cortical cysts present in the left kidney noted, largest measuring 6 cm. If additional imaging is desired to assess for presence of an abscess, consider MRI although precautionary measures against motion artifact may be necessary. Electronically signed by: Tony Beltran MD (01/03/2020 7:30 PM) [facility]
[2020-01-03] MEDS: ATORVASTATIN CALCIUM 40 MG TABLET. PO SCH (20:39)
[2020-01-03] MEDS: LACTOBACILLUS RHAMNOSUS GG 1 CAPSULE. PO SCH (20:39)
[2020-01-03 23:10] VITALS: BP 102/53
[2020-01-04] MEDS: PIPERACILLIN/TAZOBACTAM 3.375 GM in IV NORMAL SALINE 50ML 50 ML IV SCH ×5 (00:19→23:32)
[2020-01-04 03:50] VITALS: BP 115/66
[2020-01-04] MEDS: traMADol 50 MG TABLET PO PRN ×2 (04:26→13:08)
[2020-01-04 07:00] VITALS: BP 124/61
[2020-01-04 07:05] LABS: BASO % 0 % (0-3); EOS % 0 % (0-3); HEMATOCRIT 32.8 % (39.0-53.0); HEMOGLOBIN 10.9 g/dL (13.0-17.5); LYMPH # 0.9 x10^3/uL (1.0-4.8); LYMPH % 6 % (24-48); MEAN CORPUSCULAR HEMOGLOBIN 28 pg (25-35); MEAN CORPUSCULAR HGB CONC 33 g/dL (31-37); MEAN CORPUSCULAR VOLUME 84 fL (79-100); MONO # 0.9 x10^3/uL (0.0-1.1); MONO % 6 % (0-9); NEUT # 13.4 x10^3/uL (1.8-7.7); NEUT % 88 % (31-73); PLATELET COUNT 97 x10^3/uL (140-400); RED CELL DISTRIBUTION WIDTH 15.7 % (11.5-14.5); WHITE BLOOD COUNT 15.2 x10^3/uL (4.0-11.0)
--- NOTE | 2020-01-04 07:10 | PDOC ---
Infectious Disease Note Subjective Subjective Hungry. Less dysuria No F/C/s/N/V/D/SOA/rash Has digit discomfort in toes and finger ROS ROS o/w neg Vital Sign Vital Signs Vital Signs Date Time Temp Pulse Resp B/P (MAP) Pulse Ox O2 Delivery O2 Flow Rate FiO2 01/04/20 05:26 Room Air 01/04/20 03:50 97.5 68 20 115/66 (82) 100 97.5 Physical Exam PHYSICAL EXAM GENERAL: Alert, oriented to person, not in distress.- sitting ion side of bed HEENT: PERRLA. nm,l conj - OC/op -clear NECK: Supple, no JVP, no lymphadenopathy. LUNGS: Clear. HEART: S1, S2 regular. ABDOMEN: Benign.No CVA tenderness EXTREMITIES: No edema or cyanosis. Deformities - no signs of infection . right 2nd toe amp SKIN: Unremarkable. NEURO: non focal and pleasant Labs Lab Laboratory Tests Test 01/03/20 10:50 01/03/20 19:02 01/03/20 23:40 Heparin Anti-Xa Act, Unfractionated 0.14 IU/mL (0.30-0.70) 0.41 IU/mL (0.30-0.70) 0.33 IU/mL (0.30-0.70) Lactic Acid Level 1.6 mmol/L (0.4-2.0) Micro IMPRESSION: 1. Bowel interposition of the liver with nonopacification of distal bowel loops but enteric contrast is suspicious for low-grade small bowel obstruction. No findings of bowel perforation or abscess formation. 2. No findings suspicious for a renal abscess with cortical cysts present in the left kidney noted, largest measuring 6 cm. If additional imaging is desired to assess for presence of an abscess, consider MRI although precautionary measures against motion artifact may be necessary. Microbiology 01/02/20 Urine Culture - Preliminary, Resulted 01/02/20 Urine Culture Result 1 (DANY) - Preliminary, Resulted 01/02/20 Blood Culture - Final, Complete Objective Assessment 1. Gram-negative sepsis.01/02 2. Lactic acidosis. 3. Fever. 4. Leukocytosis - better. 5. Urinary tract infection with sepsis.- Ecoli 01/02 6. Dementia.- clinically looks well 7. Coronary artery disease. 8. JESSEE - better 9. NSTEMI 10.? low grade SBO on CT Plan Plan of Care Cont Zosyn F/u labs and cults May need GI eval - defer to Primary but looks well Will need Podiatry eval at some point D/w daughter ERIKA LEHMAN MD Jan 04, 2020 07:10
[2020-01-04 07:11] LABS: CALCIUM 8.1 mg/dL (8.5-10.1); CREATININE 1.2 mg/dL (0.7-1.3); GFR 69.6; POTASSIUM 3.1 mmol/L (3.5-5.1)
[2020-01-04] MEDS: ASPIRIN 325 MG TABLET PO SCH (08:13)
[2020-01-04] MEDS: LACTOBACILLUS RHAMNOSUS GG 1 CAPSULE. PO SCH ×2 (08:13→20:39)
[2020-01-04] MEDS: ALLOPURINOL 300 MG TABLET. PO SCH (08:13)
[2020-01-04] MEDS: TAMSULOSIN 0.4 MG CAP.ER.24H. PO SCH ×2 (08:13→20:39)
[2020-01-04] MEDS: METOPROLOL SUCC 24HR ER 25 MG TAB.ER.24H. PO SCH (08:14)
[2020-01-04] MEDS: LOSARTAN POTASSIUM 50 MG TABLET. PO SCH (08:14)
[2020-01-04 11:00] VITALS: BP 106/64
--- NOTE | 2020-01-04 11:21 | PDOC ---
PROGRESS NOTES Subjective Subjective feels better today, nofever Objective Objective Vital Signs Date Time Temp Pulse Resp B/P (MAP) Pulse Ox O2 Delivery O2 Flow Rate FiO2 01/04/20 08:14 71 124/61 01/04/20 08:00 Room Air 1.0 01/04/20 07:00 97.5 20 99 97.5 Intake and Output 01/04/20 07:00 Intake Total 800 ml Output Total 200 ml Balance 600 ml Intake Oral 800 ml Output Urine Total 200 ml # Voids 2 Physical Exam Abdomen: Soft, No tenderness Heart: Regular rate (atrial pacing), Normal S1, Normal S2, Other (3/6 systolic murmur to LLS border) Extremities: No cyanosis General: Alert, Cooperative, No acute distress HEENT: Atraumatic, Mucous membr. moist/pink Lungs: Other (diminsihed bases) MUSCULOSKELETAL: Osteoarthritic changes both hands Neuro: Normal speech, Sensation intact Psych/Mental Status: Other (pleasantly confused) Skin: No breakdown, No significant lesion Diagnosis Problem List Problems Medical Problems: (1) Fever Status: Acute (2) Lactic acidosis Status: Acute (3) Non-STEMI (non-ST elevated myocardial infarction) Status: Acute (4) UTI (urinary tract infection) Status: Acute Assessment Assessment Problems Medical Problems: (1) Fever Status: Acute (2) Lactic acidosis Status: Acute (3) Non-STEMI (non-ST elevated myocardial infarction) Status: Acute (4) UTI (urinary tract infection) Status: Acute FINAL IMPRESSION: 1. Fever.gram neg bacteremia 2. Sepsis with elevated white count. 3. Urinary tract infection, possible pyelonephritis, possible prostatitis. 4. Elevated troponin, non-ST elevation myocardial infarction. 5. History of pacemaker for sick sinus syndrome. 6. History of stents in the past. 7. Dementia. 8. Hypertension. 9. Arthritis, history of gout. PLAN: blood c/s positive 2/2 for gram neg. urine c/s gram neg. pot 3.1 replace wbc 15 on zosyn non stemi on heparin drip.cath next week. ct abd and pelvis scan -ve At this time, was admit to hospital. Urine and blood cultures. Start on vancomycin and Rocephin. We will change it to vancomycin and Zosyn. ID consult. We will get a CT of the abdomen and pelvis, look at the prostate and the kidneys. Also, the patient is on heparin drip for non-STEMI. Echocardiogram for left ventricular function and see how the patient's condition improves in the next 24-48 hours. The patient is pain free at this point. Try to contact the patient's , left a message. Plan Plan of Care Problems Medical Problems: (1) Fever Status: Acute (2) Lactic acidosis Status: Acute (3) Non-STEMI (non-ST elevated myocardial infarction) Status: Acute (4) UTI (urinary tract infection) Status: Acute Comment Review of Relevant I have reviewed the following items sachi (where applicable) has been applied. Labs Laboratory Tests Test 01/03/20 19:02 01/03/20 23:40 01/04/20 06:30 Heparin Anti-Xa Act, Unfractionated 0.41 IU/mL (0.30-0.70) 0.33 IU/mL (0.30-0.70) 0.13 IU/mL (0.30-0.70) White Blood Count 15.2 x10^3/uL (4.0-11.0) Red Blood Count 3.90 x10^6/uL (4.30-5.70) Hemoglobin 10.9 g/dL (13.0-17.5) Hematocrit 32.8 % (39.0-53.0) Mean Corpuscular Volume 84 fL (79-100) Mean Corpuscular Hemoglobin 28 pg (25-35) Mean Corpuscular Hemoglobin Concent 33 g/dL (31-37) Red Cell Distribution Width 15.7 % (11.5-14.5) Platelet Count 97 x10^3/uL (140-400) Neutrophils (%) (Auto) 88 % (31-73) Lymphocytes (%) (Auto) 6 % (24-48) Monocytes (%) (Auto) 6 % (0-9) Eosinophils (%) (Auto) 0 % (0-3) Basophils (%) (Auto) 0 % (0-3) Neutrophils # (Auto) 13.4 x10^3/uL (1.8-7.7) Lymphocytes # (Auto) 0.9 x10^3/uL (1.0-4.8) Monocytes # (Auto) 0.9 x10^3/uL (0.0-1.1) Eosinophils # (Auto) 0.0 x10^3/uL (0.0-0.7) Basophils # (Auto) 0.0 x10^3/uL (0.0-0.2) Sodium Level 139 mmol/L (136-145) Potassium Level 3.1 mmol/L (3.5-5.1) Chloride Level 106 mmol/L (98-107) Carbon Dioxide Level 23 mmol/L (21-32) Anion Gap 10 (6-14) Blood Urea Nitrogen 27 mg/dL (8-26) Creatinine 1.2 mg/dL (0.7-1.3) Estimated GFR (Cockcroft-Gault) 69.6 Glucose Level 103 mg/dL (70-99) Calcium Level 8.1 mg/dL (8.5-10.1) Thyroid Stimulating Hormone (TSH) 2.976 uIU/mL (0.358-3.74) Microbiology 01/02/20 Urine Culture - Preliminary, Resulted 01/02/20 Urine Culture Result 1 (DANY) - Preliminary, Resulted 01/02/20 Blood Culture - Final, Complete Medications Current Medications Amlodipine Besylate (Norvasc) 5 mg DAILY16 PO Last administered on 01/03/20at 18:52; Start 01/03/20 at 16:00 Info (CONTRAST GIVEN -- Rx MONITORING) 1 each PRN DAILY PRN MC SEE COMMENTS; Start 01/03/20 at 11:30; Stop 01/05/20 at 11:29 Iohexol (Omnipaque 240 Mg/ml) 30 ml 1X ONCE PO Last administered on 01/03/20at 12:48; Start 01/03/20 at 11:30; Stop 01/03/20 at 11:31; Status DC Iohexol (Omnipaque 300 Mg/ml) 60 ml 1X ONCE IV Last administered on 01/03/20at 12:48; Start 01/03/20 at 11:30; Stop 01/03/20 at 11:31; Status DC Lactobacillus Rhamnosus (Culturelle) 1 cap BID PO Last administered on 01/04/20at 08:13; Start 01/03/20 at 21:00 Piperacillin Sod/ Tazobactam Sod 3.375 gm/Sodium Chloride 50 ml @ 100 mls/hr Q6HRS IV Last administered on 2/22/20at 05:48; Start 01/03/20 at 12:00 Vancomycin HCl (Vancomycin Trough Level) 1 each 1X ONCE MC ; Start 01/04/20 at 17:30; Stop 01/03/20 at 10:46; Status DC Vancomycin HCl 1 gm/Sodium Chloride 250 ml @ 250 mls/hr Q24H IV ; Start 01/03/20 at 18:00; Stop 01/03/20 at 10:46; Status DC Vitals/I & O Vital Sign - Last 24 Hours 01/03/20 01/03/20 01/03/20 01/03/20 14:20 18:52 19:20 20:00 Temp 98.1 97.4 98.1 97.4 Pulse 74 86 76 Resp 12 18 B/P (MAP) 104/51 (68) 123/63 136/68 (90) Pulse Ox 98 96 O2 Delivery Room Air Room Air Room Air 01/03/20 01/04/20 01/04/20 01/04/20 23:10 03:50 04:26 05:26 Temp 97.7 97.5 97.7 97.5 Pulse 89 68 Resp 20 20 B/P (MAP) 102/53 (69) 115/66 (82) Pulse Ox 96 100 O2 Delivery Room Air Room Air Room Air Room Air 01/04/20 01/04/20 01/04/20 01/04/20 07:00 08:00 08:14 08:14 Temp 97.5 97.5 Pulse 77 71 71 Resp 20 B/P (MAP) 124/61 (82) 124/61 124/61 Pulse Ox 99 O2 Delivery Room Air Room Air O2 Flow Rate 1.0 Intake and Output 01/03/20 01/03/20 01/04/20 15:00 23:00 07:00 Intake Total 550 ml 250 ml Output Total 200 ml Balance 350 ml 250 ml GUILLE PINEDA MD Jan 04, 2020 11:21
[2020-01-04] MEDS ORDERED: POTASSIUM CHLORIDE 20 MEQ TABLET.ER. PO ONE ×2 (11:30→14:30)
--- NOTE | 2020-01-04 12:57 | PDOC ---
PROGRESS NOTES Subjective Subjective Patient seen and examined Objective Objective Vital Signs Date Time Temp Pulse Resp B/P (MAP) Pulse Ox O2 Delivery O2 Flow Rate FiO2 01/04/20 11:00 97.5 74 16 106/64 (78) 93 Room Air 97.5 01/04/20 08:00 1.0 Intake and Output 01/04/20 07:00 Intake Total 800 ml Output Total 200 ml Balance 600 ml Intake Oral 800 ml Output Urine Total 200 ml # Voids 2 Physical Exam Abdomen: Normal bowel sounds Heart: Regular rate General: mild distress Lungs: Other (minimally decreased breath sounds) Assessment Assessment Problems Medical Problems: (1) Fever Status: Acute (2) Lactic acidosis Status: Acute (3) Non-STEMI (non-ST elevated myocardial infarction) Status: Acute (4) UTI (urinary tract infection) Status: Acute 1. NSTEMI: Peaked trop at 3.46. No chest pain overnight or today. At this point would continue medical treatment. Shows an ejection fraction of 40-45%. 2. UTI/sepsis/bacteremia: Tmax 103.7. Followed by ID. Gram-negative sepsis being treated with antibiotics. 3. Metabolic encephaloapthy. Proved today. 4. HTN: controlled 5. CAD; stent in 2001. recent MPI 05/2019 nml. Recent EF nml 6. PAD: clincally stable. prior stent placement ro RLE 7. SSS: S/P PPM ([place]) 8. Thrombocytopenia: 86 and now 97. We'll continue to monitor. 9. Hx of PAT Comment Review of Relevant I have reviewed the following items sachi (where applicable) has been applied. Labs Laboratory Tests Test 01/02/20 15:30 01/02/20 15:35 01/02/20 19:11 01/02/20 23:20 Influenza Type A Antigen Negative (NEGATIVE) Influenza Type B Antigen Negative (NEGATIVE) White Blood Count 4.8 x10^3/uL (4.0-11.0) Red Blood Count 3.72 x10^6/uL (4.30-5.70) Hemoglobin 10.7 g/dL (13.0-17.5) Hematocrit 31.9 % (39.0-53.0) Mean Corpuscular Volume 86 fL (79-100) Mean Corpuscular Hemoglobin 29 pg (25-35) Mean Corpuscular Hemoglobin Concent 34 g/dL (31-37) Red Cell Distribution Width 15.6 % (11.5-14.5) Platelet Count 97 x10^3/uL (140-400) Neutrophils (%) (Auto) 96 % (31-73) Lymphocytes (%) (Auto) 2 % (24-48) Monocytes (%) (Auto) 0 % (0-9) Eosinophils (%) (Auto) 1 % (0-3) Basophils (%) (Auto) 0 % (0-3) Neutrophils # (Auto) 4.6 x10^3/uL (1.8-7.7) Lymphocytes # (Auto) 0.1 x10^3/uL (1.0-4.8) Monocytes # (Auto) 0.0 x10^3/uL (0.0-1.1) Eosinophils # (Auto) 0.1 x10^3/uL (0.0-0.7) Basophils # (Auto) 0.0 x10^3/uL (0.0-0.2) Segmented Neutrophils % 93 % (35-66) Band Neutrophils % 7 % (0-9) Toxic Granulation Slight Toxic Vacuolation Present Dohle Bodies Present Platelet Estimate Decreased (ADEQUATE) Poikilocytosis Slight Anisocytosis Slight Schistocytes Occ Prothrombin Time 14.1 SEC (11.7-14.0) Prothromb Time International Ratio 1.1 (0.8-1.1) Activated Partial Thromboplast Time 27 SEC (24-38) Urine Collection Type Unknown Urine Color Yellow Urine Clarity Cloudy Urine pH 5.0 Urine Specific [place] 1.015 Urine Protein 30 mg/dL (NEG-TRACE) Urine Glucose (UA) Negative mg/dL (NEG) Urine Ketones (Stick) Negative mg/dL (NEG) Urine Blood Large (NEG) Urine Nitrite Negative (NEG) Urine Bilirubin Negative (NEG) Urine Urobilinogen Dipstick 1.0 mg/dL (0.2 mg/dL) Urine Leukocyte Esterase Large (NEG) Urine RBC 11-20 /HPF (0-2) Urine WBC 20-40 /HPF (0-4) Urine Bacteria Many /HPF (0-FEW) Sodium Level 136 mmol/L (136-145) Potassium Level 3.0 mmol/L (3.5-5.1) Chloride Level 103 mmol/L (98-107) Carbon Dioxide Level 21 mmol/L (21-32) Anion Gap 12 (6-14) Blood Urea Nitrogen 29 mg/dL (8-26) Creatinine 1.3 mg/dL (0.7-1.3) Estimated GFR (Cockcroft-Gault) 63.5 BUN/Creatinine Ratio 22 (6-20) Glucose Level 81 mg/dL (70-99) Lactic Acid Level 5.3 mmol/L (0.4-2.0) 2.3 mmol/L (0.4-2.0) Calcium Level 8.5 mg/dL (8.5-10.1) Magnesium Level 1.7 mg/dL (1.8-2.4) Total Bilirubin 1.1 mg/dL (0.2-1.0) Aspartate Amino Transf (AST/SGOT) 73 U/L (15-37) Alanine Aminotransferase (ALT/SGPT) 75 U/L (16-63) Alkaline Phosphatase 258 U/L (46-116) Creatine Kinase 27 U/L (39-308) Creatine Kinase MB (Mass) 0.9 ng/mL (0.0-3.6) Creatine Kinase MB Relative Index % (0-4) Troponin I Quantitative 0.189 ng/mL (0.000-0.055) 2.182 ng/mL (0.000-0.055) ZS-Lpw-C-Type Natriuretic Peptide 6683 pg/mL (0-449) Total Protein 6.3 g/dL (6.4-8.2) Albumin 2.7 g/dL (3.4-5.0) Albumin/Globulin Ratio 0.8 (1.0-1.7) Heparin Anti-Xa Act, Unfractionated 0.10 IU/mL (0.30-0.70) Test 01/03/20 00:57 01/03/20 03:44 01/03/20 04:45 01/03/20 10:50 Troponin I Quantitative 3.462 ng/mL (0.000-0.055) 3.369 ng/mL (0.000-0.055) Glucose (Fingerstick) 107 mg/dL (70-99) White Blood Count 16.8 x10^3/uL (4.0-11.0) Red Blood Count 3.89 x10^6/uL (4.30-5.70) Hemoglobin 11.1 g/dL (13.0-17.5) Hematocrit 33.3 % (39.0-53.0) Mean Corpuscular Volume 86 fL (79-100) Mean Corpuscular Hemoglobin 29 pg (25-35) Mean Corpuscular Hemoglobin Concent 33 g/dL (31-37) Red Cell Distribution Width 16.0 % (11.5-14.5) Platelet Count 86 x10^3/uL (140-400) Heparin Anti-Xa Act, Unfractionated 0.26 IU/mL (0.30-0.70) 0.14 IU/mL (0.30-0.70) Sodium Level 140 mmol/L (136-145) Potassium Level 3.6 mmol/L (3.5-5.1) Chloride Level 106 mmol/L (98-107) Carbon Dioxide Level 22 mmol/L (21-32) Anion Gap 12 (6-14) Blood Urea Nitrogen 32 mg/dL (8-26) Creatinine 1.4 mg/dL (0.7-1.3) Estimated GFR (Cockcroft-Gault) 58.3 Glucose Level 107 mg/dL (70-99) Calcium Level 8.5 mg/dL (8.5-10.1) Triglycerides Level 73 mg/dL (0-150) Cholesterol Level 110 mg/dL (0-200) LDL Cholesterol, Calculated 77 mg/dL (0-100) VLDL Cholesterol, Calculated 15 mg/dL (0-40) Non-HDL Cholesterol Calculated 92 mg/dL (0-129) HDL Cholesterol 18 mg/dL (40-60) Cholesterol/HDL Ratio 6.1 Lactic Acid Level 1.6 mmol/L (0.4-2.0) Test 01/03/20 19:02 01/03/20 23:40 01/04/20 06:30 Heparin Anti-Xa Act, Unfractionated 0.41 IU/mL (0.30-0.70) 0.33 IU/mL (0.30-0.70) 0.13 IU/mL (0.30-0.70) White Blood Count 15.2 x10^3/uL (4.0-11.0) Red Blood Count 3.90 x10^6/uL (4.30-5.70) Hemoglobin 10.9 g/dL (13.0-17.5) Hematocrit 32.8 % (39.0-53.0) Mean Corpuscular Volume 84 fL (79-100) Mean Corpuscular Hemoglobin 28 pg (25-35) Mean Corpuscular Hemoglobin Concent 33 g/dL (31-37) Red Cell Distribution Width 15.7 % (11.5-14.5) Platelet Count 97 x10^3/uL (140-400) Neutrophils (%) (Auto) 88 % (31-73) Lymphocytes (%) (Auto) 6 % (24-48) Monocytes (%) (Auto) 6 % (0-9) Eosinophils (%) (Auto) 0 % (0-3) Basophils (%) (Auto) 0 % (0-3) Neutrophils # (Auto) 13.4 x10^3/uL (1.8-7.7) Lymphocytes # (Auto) 0.9 x10^3/uL (1.0-4.8) Monocytes # (Auto) 0.9 x10^3/uL (0.0-1.1) Eosinophils # (Auto) 0.0 x10^3/uL (0.0-0.7) Basophils # (Auto) 0.0 x10^3/uL (0.0-0.2) Sodium Level 139 mmol/L (136-145) Potassium Level 3.1 mmol/L (3.5-5.1) Chloride Level 106 mmol/L (98-107) Carbon Dioxide Level 23 mmol/L (21-32) Anion Gap 10 (6-14) Blood Urea Nitrogen 27 mg/dL (8-26) Creatinine 1.2 mg/dL (0.7-1.3) Estimated GFR (Cockcroft-Gault) 69.6 Glucose Level 103 mg/dL (70-99) Calcium Level 8.1 mg/dL (8.5-10.1) Thyroid Stimulating Hormone (TSH) 2.976 uIU/mL (0.358-3.74) Laboratory Tests Test 01/03/20 19:02 01/03/20 23:40 01/04/20 06:30 Heparin Anti-Xa Act, Unfractionated 0.41 IU/mL (0.30-0.70) 0.33 IU/mL (0.30-0.70) 0.13 IU/mL (0.30-0.70) White Blood Count 15.2 x10^3/uL (4.0-11.0) Red Blood Count 3.90 x10^6/uL (4.30-5.70) Hemoglobin 10.9 g/dL (13.0-17.5) Hematocrit 32.8 % (39.0-53.0) Mean Corpuscular Volume 84 fL (79-100) Mean Corpuscular Hemoglobin 28 pg (25-35) Mean Corpuscular Hemoglobin Concent 33 g/dL (31-37) Red Cell Distribution Width 15.7 % (11.5-14.5) Platelet Count 97 x10^3/uL (140-400) Neutrophils (%) (Auto) 88 % (31-73) Lymphocytes (%) (Auto) 6 % (24-48) Monocytes (%) (Auto) 6 % (0-9) Eosinophils (%) (Auto) 0 % (0-3) Basophils (%) (Auto) 0 % (0-3) Neutrophils # (Auto) 13.4 x10^3/uL (1.8-7.7) Lymphocytes # (Auto) 0.9 x10^3/uL (1.0-4.8) Monocytes # (Auto) 0.9 x10^3/uL (0.0-1.1) Eosinophils # (Auto) 0.0 x10^3/uL (0.0-0.7) Basophils # (Auto) 0.0 x10^3/uL (0.0-0.2) Sodium Level 139 mmol/L (136-145) Potassium Level 3.1 mmol/L (3.5-5.1) Chloride Level 106 mmol/L (98-107) Carbon Dioxide Level 23 mmol/L (21-32) Anion Gap 10 (6-14) Blood Urea Nitrogen 27 mg/dL (8-26) Creatinine 1.2 mg/dL (0.7-1.3) Estimated GFR (Cockcroft-Gault) 69.6 Glucose Level 103 mg/dL (70-99) Calcium Level 8.1 mg/dL (8.5-10.1) Thyroid Stimulating Hormone (TSH) 2.976 uIU/mL (0.358-3.74) Microbiology 2/20/20 Urine Culture - Preliminary, Resulted 01/02/20 Urine Culture Result 1 (DANY) - Preliminary, Resulted 01/02/20 Blood Culture - Final, Complete Medications Current Medications Heparin Sodium (Porcine) (Heparin Sodium) 3,850 unit 1X ONCE IV Last administered on 01/02/20at 17:18; Start 01/02/20 at 16:30; Stop 01/02/20 at 16:31; Status DC Heparin Sodium/ Dextrose 250 ml @ 0 mls/hr CONT PRN IV PER PROTOCOL Last administered on 01/03/20at 19:02; Start 01/02/20 at 16:30 Heparin Sodium (Porcine) (Heparin Sodium) 1,600 unit PRN Q6HRS PRN IV FOR UFH LEVEL LESS THAN 0.2 Last administered on 01/03/20 13:25; Start 01/02/20 at 16:30 Info (Anti-Coagulation Monitoring By Pharmacy) 1 each PRN DAILY PRN MC SEE COMMENTS Last administered on 01/03/20 10:37; Start 01/02/20 at 16:30 Ceftriaxone Sodium (Rocephin) 1 gm 1X ONCE IVP Last administered on 01/02/20 17:02; Start 01/02/20 at 16:45; Stop 01/02/20 at 16:46; Status DC Sodium Chloride 1,000 ml @ 1,000 mls/hr 1X ONCE IV Last administered on 01/02/20 17:03; Start 01/02/20 at 16:45; Stop 01/02/20 at 17:44; Status DC Acetaminophen (Tylenol) 1,000 mg 1X ONCE PO Last administered on 01/02/20 17:02; Start 01/02/20 at 16:45; Stop 01/02/20 at 16:46; Status DC Aspirin (Adilson Aspirin) 325 mg 1X ONCE PO ; Start 01/02/20 at 16:45; Stop 01/02/20 at 16:46; Status DC Ibuprofen (Motrin) 600 mg 1X ONCE PO Last administered on 01/02/20at 17:03; Start 01/02/20 at 16:45; Stop 01/02/20 at 16:46; Status DC Vancomycin HCl (Vanco Per Pharmacy) 1 each PRN DAILY PRN MC SEE COMMENTS Last administered on 01/03/20at 10:39; Start 01/02/20 at 17:30; Stop 01/03/20 at 10:46; Status DC Vancomycin HCl 1.5 gm/Sodium Chloride 500 ml @ 250 mls/hr 1X ONCE IV Last administered on 01/02/20at 17:48; Start 01/02/20 at 18:00; Stop 01/02/20 at 19:59; Status DC Vancomycin HCl 1 gm/Sodium Chloride 250 ml @ 250 mls/hr Q24H IV ; Start 01/03/20 at 18:00; Stop 01/03/20 at 10:46; Status DC Vancomycin HCl (Vancomycin Trough Level) 1 each 1X ONCE MC ; Start 01/04/20 at 17:30; Stop 01/03/20 at 10:46; Status DC Magnesium Sulfate 50 ml @ 25 mls/hr 1X ONCE IV Last administered on 01/02/20at 23:42; Start 01/02/20 at 22:30; Stop 01/03/20 at 00:29; Status DC Allopurinol (Zyloprim) 300 mg DAILY PO Last administered on 01/04/20at 08:13; Start 01/03/20 at 09:00 Aspirin (Adilson Aspirin) 325 mg DAILYWBKFT PO Last administered on 01/04/20 08:13; Start 01/03/20 at 08:00 Atorvastatin Calcium (Lipitor) 40 mg QHS PO Last administered on 01/03/20at 20:39; Start 01/02/20 at 22:45 Losartan Potassium (Cozaar) 50 mg DAILY PO Last administered on 01/04/20 08:14; Start 01/03/20 at 09:00 Metoprolol Succinate (Toprol Xl) 25 mg DAILY PO Last administered on 01/04/20at 08:14; Start 01/03/20 at 09:00 Tamsulosin HCl (Flomax) 0.4 mg BID PO Last administered on 01/04/20 08:13; Start 01/02/20 at 22:45 Tramadol HCl (Ultram) 50 mg PRN Q6HRS PRN PO PAIN Last administered on 01/04/20 04:26; Start 01/02/20 at 22:30 Trazodone HCl (Desyrel) 50 mg QHS PO Last administered on 01/03/20at 20:40; Start 01/02/20 at 22:45 Amlodipine Besylate (Norvasc) 5 mg DAILY16 PO Last administered on 01/03/20at 18:52; Start 01/03/20 at 16:00 Piperacillin Sod/ Tazobactam Sod 3.375 gm/Sodium Chloride 50 ml @ 100 mls/hr Q6HRS IV Last administered on 01/04/20at 05:48; Start 01/03/20 at 12:00 Lactobacillus Rhamnosus (Culturelle) 1 cap BID PO Last administered on at 08:13; Start 01/03/20 at 21:00 Iohexol (Omnipaque 240 Mg/ml) 30 ml 1X ONCE PO Last administered on 01/03/20at 12:48; Start 01/03/20 at 11:30; Stop 01/03/20 at 11:31; Status DC Iohexol (Omnipaque 300 Mg/ml) 60 ml 1X ONCE IV Last administered on 01/03/20at 12:48; Start 01/03/20 at 11:30; Stop 01/03/20 at 11:31; Status DC Info (CONTRAST GIVEN -- Rx MONITORING) 1 each PRN DAILY PRN MC SEE COMMENTS; Start 01/03/20 at 11:30; Stop 01/05/20 at 11:29 Potassium Chloride (Klor-Con) 40 meq 1X ONCE PO ; Start 01/04/20 at 11:30; Stop 01/04/20 at 11:31; Status DC Potassium Chloride (Klor-Con) 20 meq 1X ONCE PO ; Start 01/04/20 at 14:30; Stop 01/04/20 at 14:31 Active Scripts Active Toprol Xl (Metoprolol Succinate) 25 Mg Tab.er.24h 1 Tab PO DAILY 30 Days Atorvastatin Calcium 40 Mg Tablet 40 Mg PO QHS 30 Days Reported Flomax (Tamsulosin Hcl) 0.4 Mg Cap.er.24h 1 Cap PO BID Tramadol Hcl 50 Mg Tablet 50 Mg PO Q6HRS PRN Trazodone Hcl 50 Mg Tablet 1 Tab PO QHS Aspirin 325 Mg Tablet 1 Tab PO DAILY Allopurinol 300 Mg Tablet 1 Tab PO DAILY Losartan Potassium 50 Mg Tablet 50 Mg PO DAILY NITROGLYCERIN SubLingual (Nitroglycerin) 0.4 Mg Tab.subl 1 Tab SL UD Felodipine Er (Felodipine) 5 Mg Tab.er.24h 1 Tab PO DAILY16 Vitals/I & O Vital Sign - Last 24 Hours 01/03/20 01/03/20 01/03/20 01/03/20 14:20 18:52 19:20 20:00 Temp 98.1 97.4 98.1 97.4 Pulse 74 86 76 Resp 12 18 B/P (MAP) 104/51 (68) 123/63 136/68 (90) Pulse Ox 98 96 O2 Delivery Room Air Room Air Room Air 01/03/20 01/04/20 01/04/20 01/04/20 23:10 03:50 04:26 05:26 Temp 97.7 97.5 97.7 97.5 Pulse 89 68 Resp 20 20 B/P (MAP) 102/53 (69) 115/66 (82) Pulse Ox 96 100 O2 Delivery Room Air Room Air Room Air Room Air 01/04/20 01/04/20 01/04/20 01/04/20 07:00 08:00 08:14 08:14 Temp 97.5 97.5 Pulse 77 71 71 Resp 20 B/P (MAP) 124/61 (82) 124/61 124/61 Pulse Ox 99 O2 Delivery Room Air Room Air O2 Flow Rate 1.0 01/04/20 11:00 Temp 97.5 97.5 Pulse 74 Resp 16 B/P (MAP) 106/64 (78) Pulse Ox 93 O2 Delivery Room Air Intake and Output 01/03/20 01/03/20 01/04/20 15:00 23:00 07:00 Intake Total 550 ml 250 ml Output Total 200 ml Balance 350 ml 250 ml DANIELA BETANCUR MD Jan 04, 2020 12:57
[2020-01-04] MEDS: HEPARIN for IV BOLUS 10,000 UNIT/10 ML VIAL. IV PRN (14:20)
[2020-01-04] MEDS: HEPARIN 25,000UTS/250ML PREMIX 250 ML IV PRN (14:21)
[2020-01-04 15:00] VITALS: BP 109/55
[2020-01-04] MEDS: amLODIPine BESYLATE 5 MG TABLET PO SCH (17:20)
[2020-01-04 19:55] VITALS: BP 109/67
[2020-01-04] MEDS ORDERED: ALPRAZolam 0.25 MG TABLET PO PRN (20:30)
[2020-01-04] MEDS: traZODone 50 MG TABLET. PO SCH (20:39)
[2020-01-04] MEDS: ATORVASTATIN CALCIUM 40 MG TABLET. PO SCH (20:40)
[2020-01-05] VITALS (7 sets, daily range): BP systolic 135–180; BP diastolic 60–80
[2020-01-05] MEDS: PIPERACILLIN/TAZOBACTAM 3.375 GM in IV NORMAL SALINE 50ML 50 ML IV SCH ×2 (05:44→10:56)
[2020-01-05 06:56] LABS: BASO % 0 % (0-3); EOS # 0.1 x10^3/uL (0.0-0.7); EOS % 1 % (0-3); HEMATOCRIT 33.9 % (39.0-53.0); HEMOGLOBIN 11.3 g/dL (13.0-17.5); LYMPH # 1.5 x10^3/uL (1.0-4.8); LYMPH % 12 % (24-48); MEAN CORPUSCULAR HEMOGLOBIN 28 pg (25-35); MEAN CORPUSCULAR HGB CONC 33 g/dL (31-37); MEAN CORPUSCULAR VOLUME 85 fL (79-100); MONO # 0.7 x10^3/uL (0.0-1.1); MONO % 6 % (0-9); NEUT % 82 % (31-73); PLATELET COUNT 111 x10^3/uL (140-400); RED BLOOD COUNT 3.97 x10^6/uL (4.30-5.70); WHITE BLOOD COUNT 12.3 x10^3/uL (4.0-11.0)
[2020-01-05 07:09] LABS: CALCIUM 8.2 mg/dL (8.5-10.1); CREATININE 1.1 mg/dL (0.7-1.3); POTASSIUM 3.6 mmol/L (3.5-5.1)
--- NOTE | 2020-01-05 07:33 | PDOC ---
Infectious Disease Note Subjective Subjective Very confused this am No answering questions LISA GONZALEZ unable to obtain Vital Sign Vital Signs Vital Signs Date Time Temp Pulse Resp B/P (MAP) Pulse Ox O2 Delivery O2 Flow Rate FiO2 01/05/20 03:45 97.0 68 21 135/64 (87) 95 Room Air 97.0 01/04/20 14:25 1.0 Physical Exam PHYSICAL EXAM GENERAL: Alert and not in distress.- sitting on side of bed HEENT: eyes closed and wound not open NECK: Supple, no JVP, no lymphadenopathy. LUNGS: Clear. HEART: S1, S2 regular. ABDOMEN: Benign.No CVA tenderness EXTREMITIES: No edema or cyanosis. Deformities - no signs of infection . right 2nd toe amp SKIN: Unremarkable. NEURO: Confused and pleasant Labs Lab Laboratory Tests Test 01/05/20 06:10 01/05/20 06:11 Heparin Anti-Xa Act, Unfractionated < 0.10 IU/mL (0.30-0.70) Sodium Level 139 mmol/L (136-145) Potassium Level 3.6 mmol/L (3.5-5.1) Chloride Level 106 mmol/L (98-107) Carbon Dioxide Level 20 mmol/L (21-32) Anion Gap 13 (6-14) Blood Urea Nitrogen 20 mg/dL (8-26) Creatinine 1.1 mg/dL (0.7-1.3) Estimated GFR (Cockcroft-Gault) 77.0 Glucose Level 87 mg/dL (70-99) Calcium Level 8.2 mg/dL (8.5-10.1) White Blood Count 12.3 x10^3/uL (4.0-11.0) Red Blood Count 3.97 x10^6/uL (4.30-5.70) Hemoglobin 11.3 g/dL (13.0-17.5) Hematocrit 33.9 % (39.0-53.0) Mean Corpuscular Volume 85 fL (79-100) Mean Corpuscular Hemoglobin 28 pg (25-35) Mean Corpuscular Hemoglobin Concent 33 g/dL (31-37) Red Cell Distribution Width 16.0 % (11.5-14.5) Platelet Count 111 x10^3/uL (140-400) Neutrophils (%) (Auto) 82 % (31-73) Lymphocytes (%) (Auto) 12 % (24-48) Monocytes (%) (Auto) 6 % (0-9) Eosinophils (%) (Auto) 1 % (0-3) Basophils (%) (Auto) 0 % (0-3) Neutrophils # (Auto) 10.0 x10^3/uL (1.8-7.7) Lymphocytes # (Auto) 1.5 x10^3/uL (1.0-4.8) Monocytes # (Auto) 0.7 x10^3/uL (0.0-1.1) Eosinophils # (Auto) 0.1 x10^3/uL (0.0-0.7) Basophils # (Auto) 0.0 x10^3/uL (0.0-0.2) Micro IMPRESSION: 1. Bowel interposition of the liver with nonopacification of distal bowel loops but enteric contrast is suspicious for low-grade small bowel obstruction. No findings of bowel perforation or abscess formation. 2. No findings suspicious for a renal abscess with cortical cysts present in the left kidney noted, largest measuring 6 cm. If additional imaging is desired to assess for presence of an abscess, consider MRI although precautionary measures against motion artifact may be necessary. Microbiology 01/02/20 Urine Culture - Preliminary, Resulted 01/02/20 Urine Culture Result 1 ([facility]) - Preliminary, Resulted 01/02/20 Blood Culture - Final, Complete Objective Assessment 1. Gram-negative sepsis.01/02 ID pending - AF 2. Lactic acidosis- better 3. Fever resolved. 4. Leukocytosis - better yet. 5. Urinary tract infection with sepsis.- Ecoli 01/02 6. Dementia.- worse. Daughter states started yesterday afternoon. and she states he slept some 7. Coronary artery disease. 8. JESSEE - better 9. NSTEMI 10.? low grade SBO on CT Plan Plan of Care Cont Zosyn F/u labs in am and cults Dementia per primary May need GI eval - defer to Primary but looks well Will need Podiatry eval at some point D/w daughter ERIKA LEHMAN MD Jan 05, 2020 07:33
[2020-01-05] MEDS: TAMSULOSIN 0.4 MG CAP.ER.24H. PO SCH ×3 (07:52→21:00)
[2020-01-05] MEDS: ALLOPURINOL 300 MG TABLET. PO SCH (07:53)
[2020-01-05] MEDS: LOSARTAN POTASSIUM 50 MG TABLET. PO SCH (07:53)
[2020-01-05] MEDS: LACTOBACILLUS RHAMNOSUS GG 1 CAPSULE. PO SCH ×3 (07:53→21:00)
[2020-01-05] MEDS: ASPIRIN 325 MG TABLET PO SCH (07:53)
[2020-01-05] MEDS: METOPROLOL SUCC 24HR ER 25 MG TAB.ER.24H. PO SCH (07:54)
[2020-01-05] MEDS ORDERED: HALOPERIDOL LACTATE 5 MG/ML VIAL. IVP PRN (10:45)
--- NOTE | 2020-01-05 10:55 | PDOC ---
PROGRESS NOTES Subjective Subjective agitated today ,hallucinating and pulling iv Objective Objective Vital Signs Date Time Temp Pulse Resp B/P (MAP) Pulse Ox O2 Delivery O2 Flow Rate FiO2 01/05/20 08:00 Room Air 1.0 01/05/20 07:54 81 142/73 01/05/20 07:00 96.6 16 98 96.6 Intake and Output 01/05/20 07:00 Intake Total 370 ml Balance 370 ml Intake Oral 150 ml Blood Product IV Normal Saline Flush 220 ml # Voids 3 Physical Exam Abdomen: Normal bowel sounds Heart: Regular rate Extremities: No cyanosis General: mild distress HEENT: Atraumatic, Mucous membr. moist/pink Lungs: Other (minimally decreased breath sounds) MUSCULOSKELETAL: Osteoarthritic changes both hands Neuro: Sensation intact Psych/Mental Status: Other (agitated today) Skin: No breakdown, No significant lesion Diagnosis Problem List Problems Medical Problems: (1) Fever Status: Acute (2) Lactic acidosis Status: Acute (3) Non-STEMI (non-ST elevated myocardial infarction) Status: Acute (4) UTI (urinary tract infection) Status: Acute Assessment Assessment Problems Medical Problems: (1) Fever Status: Acute (2) Lactic acidosis Status: Acute (3) Non-STEMI (non-ST elevated myocardial infarction) Status: Acute (4) UTI (urinary tract infection) Status: Acute FINAL IMPRESSION:Agitation with hallucinations 1. Fever.gram neg bacteremia 2. Sepsis with elevated white count. 3. Urinary tract infection, possible pyelonephritis, possible prostatitis. 4. Elevated troponin, non-ST elevation myocardial infarction. 5. History of pacemaker for sick sinus syndrome. 6. History of stents in the past. 7. Dementia. 8. Hypertension. 9. Arthritis, history of gout. PLAN: HAldol 1 mg iv q 4 hours prn . d/c ativan blood c/s positive 2/2 for gram neg. urine c/s gram neg.E Coli sensitivity pending pot 3.6 replaced wbc 12 on zosyn d/c heparin drip. ct abd and pelvis scan -ve At this time, was admit to hospital. Urine and blood cultures. Start on vancomycin and Rocephin. We will change it to vancomycin and Zosyn. ID consult. We will get a CT of the abdomen and pelvis, look at the prostate and the kidneys. Also, the patient is on heparin drip for non-STEMI. Echocardiogram for left ventricular function and see how the patient's condition improves in the next 24-48 hours. The patient is pain free at this point. Try to contact the patient's , left a message. Plan Plan of Care Problems Medical Problems: (1) Fever Status: Acute (2) Lactic acidosis Status: Acute (3) Non-STEMI (non-ST elevated myocardial infarction) Status: Acute (4) UTI (urinary tract infection) Status: Acute Comment Review of Relevant I have reviewed the following items sachi (where applicable) has been applied. Labs Laboratory Tests Test 01/05/20 06:10 01/05/20 06:11 Heparin Anti-Xa Act, Unfractionated < 0.10 IU/mL (0.30-0.70) Sodium Level 139 mmol/L (136-145) Potassium Level 3.6 mmol/L (3.5-5.1) Chloride Level 106 mmol/L (98-107) Carbon Dioxide Level 20 mmol/L (21-32) Anion Gap 13 (6-14) Blood Urea Nitrogen 20 mg/dL (8-26) Creatinine 1.1 mg/dL (0.7-1.3) Estimated GFR (Cockcroft-Gault) 77.0 Glucose Level 87 mg/dL (70-99) Calcium Level 8.2 mg/dL (8.5-10.1) White Blood Count 12.3 x10^3/uL (4.0-11.0) Red Blood Count 3.97 x10^6/uL (4.30-5.70) Hemoglobin 11.3 g/dL (13.0-17.5) Hematocrit 33.9 % (39.0-53.0) Mean Corpuscular Volume 85 fL (79-100) Mean Corpuscular Hemoglobin 28 pg (25-35) Mean Corpuscular Hemoglobin Concent 33 g/dL (31-37) Red Cell Distribution Width 16.0 % (11.5-14.5) Platelet Count 111 x10^3/uL (140-400) Neutrophils (%) (Auto) 82 % (31-73) Lymphocytes (%) (Auto) 12 % (24-48) Monocytes (%) (Auto) 6 % (0-9) Eosinophils (%) (Auto) 1 % (0-3) Basophils (%) (Auto) 0 % (0-3) Neutrophils # (Auto) 10.0 x10^3/uL (1.8-7.7) Lymphocytes # (Auto) 1.5 x10^3/uL (1.0-4.8) Monocytes # (Auto) 0.7 x10^3/uL (0.0-1.1) Eosinophils # (Auto) 0.1 x10^3/uL (0.0-0.7) Basophils # (Auto) 0.0 x10^3/uL (0.0-0.2) Microbiology 01/02/20 Urine Culture - Preliminary, Resulted 01/02/20 Urine Culture Result 1 (DANY) - Preliminary, Resulted 01/02/20 Blood Culture - Final, Complete Medications Current Medications Alprazolam (Xanax) 0.25 mg PRN Q8HRS PRN PO ANXIETY / AGITATION Last administered on 01/04/20at 20:39; Start 01/04/20 at 20:30 Haloperidol Lactate (Haldol Inj) 1 mg PRN Q4HRS PRN IVP AGITATION; Start 01/05/20 at 10:45 Lorazepam (Ativan Inj) 0.25 mg PRN Q6HRS PRN IVP ANXIETY / AGITATION Last administered on 01/05/20at 05:44; Start 01/04/20 at 22:15; Stop 01/05/20 at 10:41; Status DC Potassium Chloride (Klor-Con) 20 meq 1X ONCE PO Last administered on 01/04/20at 14:21; Start 01/04/20 at 14:30; Stop 01/04/20 at 14:31; Status DC Potassium Chloride (Klor-Con) 40 meq 1X ONCE PO Last administered on 01/04/20at 12:47; Start 01/04/20 at 11:30; Stop 01/04/20 at 11:31; Status DC Vancomycin HCl (Vancomycin Trough Level) 1 each 1X ONCE MC ; Start 01/04/20 at 17:30; Stop 01/03/20 at 10:46; Status DC Vitals/I & O Vital Sign - Last 24 Hours 01/04/20 01/04/20 01/04/20 01/04/20 11:00 13:08 14:25 15:00 Temp 97.5 97.4 97.5 97.4 Pulse 74 73 Resp 16 16 B/P (MAP) 106/64 (78) 109/55 (73) Pulse Ox 93 93 93 99 O2 Delivery Room Air Room Air Room Air Room Air O2 Flow Rate 1.0 1.0 01/04/20 01/04/20 01/04/20 01/04/20 17:20 19:55 20:26 23:00 Pulse 73 71 Resp 21 B/P (MAP) 109/55 109/67 (81) Pulse Ox 98 O2 Delivery Room Air Room Air Room Air 01/05/20 01/05/20 01/05/20 01/05/20 00:24 03:45 07:00 07:53 Temp 97.0 96.6 97.0 96.6 Pulse 68 87 81 Resp 21 16 B/P (MAP) 140/64 (89) 135/64 (87) 142/73 (96) 142/73 Pulse Ox 95 98 O2 Delivery Room Air Room Air Room Air 01/05/20 01/05/20 07:54 08:00 Pulse 81 B/P (MAP) 142/73 O2 Delivery Room Air O2 Flow Rate 1.0 Intake and Output 01/04/20 01/04/20 01/05/20 15:00 23:00 07:00 Intake Total 270 ml 100 ml Balance 270 ml 100 ml GUILLE PINEDA MD Jan 05, 2020 10:55
--- NOTE | 2020-01-05 13:38 | PDOC ---
PROGRESS NOTES Subjective Subjective Patient seen and examined The patient is confused and aggressive today. Objective Objective Vital Signs Date Time Temp Pulse Resp B/P (MAP) Pulse Ox O2 Delivery O2 Flow Rate FiO2 01/05/20 08:00 Room Air 1.0 01/05/20 07:54 81 142/73 01/05/20 07:00 96.6 16 98 96.6 Intake and Output 01/05/20 07:00 Intake Total 370 ml Balance 370 ml Intake Oral 150 ml Blood Product IV Normal Saline Flush 220 ml # Voids 3 Physical Exam Abdomen: Normal bowel sounds Heart: Regular rate General: mild distress Lungs: Other (mildly decreased breath sounds) Assessment Assessment Problems Medical Problems: (1) Fever Status: Acute (2) Lactic acidosis Status: Acute (3) Non-STEMI (non-ST elevated myocardial infarction) Status: Acute (4) UTI (urinary tract infection) Status: Acute 1. NSTEMI: Peaked trop at 3.46. No chest pain. Echocardiogram with an ejection fraction at 40-45%. Had considered possible catheterization but the patient is confused and aggressive today is not a candidate for any interventional treatment at this time. 2. UTI/sepsis/bacteremia: Tmax 103.7. Followed by ID. Gram-negative sepsis being treated with antibiotics. 3. Metabolic encephaloapthy. 4. HTN: controlled 5. CAD; stent in 2001. recent MPI 05/2019 nml. 6. PAD: clincally stable. prior stent placement ro RLE 7. SSS: S/P PPM ([facility]) 8. Thrombocytopenia: Improved to 111. 9. Hx of PAT Comment Review of Relevant I have reviewed the following items sachi (where applicable) has been applied. Labs Laboratory Tests Test 01/03/20 19:02 01/03/20 23:40 01/04/20 06:30 01/05/20 06:10 Heparin Anti-Xa Act, Unfractionated 0.41 IU/mL (0.30-0.70) 0.33 IU/mL (0.30-0.70) 0.13 IU/mL (0.30-0.70) < 0.10 IU/mL (0.30-0.70) White Blood Count 15.2 x10^3/uL (4.0-11.0) Red Blood Count 3.90 x10^6/uL (4.30-5.70) Hemoglobin 10.9 g/dL (13.0-17.5) Hematocrit 32.8 % (39.0-53.0) Mean Corpuscular Volume 84 fL (79-100) Mean Corpuscular Hemoglobin 28 pg (25-35) Mean Corpuscular Hemoglobin Concent 33 g/dL (31-37) Red Cell Distribution Width 15.7 % (11.5-14.5) Platelet Count 97 x10^3/uL (140-400) Neutrophils (%) (Auto) 88 % (31-73) Lymphocytes (%) (Auto) 6 % (24-48) Monocytes (%) (Auto) 6 % (0-9) Eosinophils (%) (Auto) 0 % (0-3) Basophils (%) (Auto) 0 % (0-3) Neutrophils # (Auto) 13.4 x10^3/uL (1.8-7.7) Lymphocytes # (Auto) 0.9 x10^3/uL (1.0-4.8) Monocytes # (Auto) 0.9 x10^3/uL (0.0-1.1) Eosinophils # (Auto) 0.0 x10^3/uL (0.0-0.7) Basophils # (Auto) 0.0 x10^3/uL (0.0-0.2) Sodium Level 139 mmol/L (136-145) 139 mmol/L (136-145) Potassium Level 3.1 mmol/L (3.5-5.1) 3.6 mmol/L (3.5-5.1) Chloride Level 106 mmol/L (98-107) 106 mmol/L (98-107) Carbon Dioxide Level 23 mmol/L (21-32) 20 mmol/L (21-32) Anion Gap 10 (6-14) 13 (6-14) Blood Urea Nitrogen 27 mg/dL (8-26) 20 mg/dL (8-26) Creatinine 1.2 mg/dL (0.7-1.3) 1.1 mg/dL (0.7-1.3) Estimated GFR (Cockcroft-Gault) 69.6 77.0 Glucose Level 103 mg/dL (70-99) 87 mg/dL (70-99) Calcium Level 8.1 mg/dL (8.5-10.1) 8.2 mg/dL (8.5-10.1) Thyroid Stimulating Hormone (TSH) 2.976 uIU/mL (0.358-3.74) Test 01/05/20 06:11 White Blood Count 12.3 x10^3/uL (4.0-11.0) Red Blood Count 3.97 x10^6/uL (4.30-5.70) Hemoglobin 11.3 g/dL (13.0-17.5) Hematocrit 33.9 % (39.0-53.0) Mean Corpuscular Volume 85 fL (79-100) Mean Corpuscular Hemoglobin 28 pg (25-35) Mean Corpuscular Hemoglobin Concent 33 g/dL (31-37) Red Cell Distribution Width 16.0 % (11.5-14.5) Platelet Count 111 x10^3/uL (140-400) Neutrophils (%) (Auto) 82 % (31-73) Lymphocytes (%) (Auto) 12 % (24-48) Monocytes (%) (Auto) 6 % (0-9) Eosinophils (%) (Auto) 1 % (0-3) Basophils (%) (Auto) 0 % (0-3) Neutrophils # (Auto) 10.0 x10^3/uL (1.8-7.7) Lymphocytes # (Auto) 1.5 x10^3/uL (1.0-4.8) Monocytes # (Auto) 0.7 x10^3/uL (0.0-1.1) Eosinophils # (Auto) 0.1 x10^3/uL (0.0-0.7) Basophils # (Auto) 0.0 x10^3/uL (0.0-0.2) Laboratory Tests Test 01/05/20 06:10 01/05/20 06:11 Heparin Anti-Xa Act, Unfractionated < 0.10 IU/mL (0.30-0.70) Sodium Level 139 mmol/L (136-145) Potassium Level 3.6 mmol/L (3.5-5.1) Chloride Level 106 mmol/L (98-107) Carbon Dioxide Level 20 mmol/L (21-32) Anion Gap 13 (6-14) Blood Urea Nitrogen 20 mg/dL (8-26) Creatinine 1.1 mg/dL (0.7-1.3) Estimated GFR (Cockcroft-Gault) 77.0 Glucose Level 87 mg/dL (70-99) Calcium Level 8.2 mg/dL (8.5-10.1) White Blood Count 12.3 x10^3/uL (4.0-11.0) Red Blood Count 3.97 x10^6/uL (4.30-5.70) Hemoglobin 11.3 g/dL (13.0-17.5) Hematocrit 33.9 % (39.0-53.0) Mean Corpuscular Volume 85 fL (79-100) Mean Corpuscular Hemoglobin 28 pg (25-35) Mean Corpuscular Hemoglobin Concent 33 g/dL (31-37) Red Cell Distribution Width 16.0 % (11.5-14.5) Platelet Count 111 x10^3/uL (140-400) Neutrophils (%) (Auto) 82 % (31-73) Lymphocytes (%) (Auto) 12 % (24-48) Monocytes (%) (Auto) 6 % (0-9) Eosinophils (%) (Auto) 1 % (0-3) Basophils (%) (Auto) 0 % (0-3) Neutrophils # (Auto) 10.0 x10^3/uL (1.8-7.7) Lymphocytes # (Auto) 1.5 x10^3/uL (1.0-4.8) Monocytes # (Auto) 0.7 x10^3/uL (0.0-1.1) Eosinophils # (Auto) 0.1 x10^3/uL (0.0-0.7) Basophils # (Auto) 0.0 x10^3/uL (0.0-0.2) Microbiology 01/02/20 Urine Culture - Preliminary, Resulted 01/02/20 Urine Culture Result 1 (DANY) - Preliminary, Resulted 01/02/20 Blood Culture - Final, Complete Medications Current Medications Heparin Sodium (Porcine) (Heparin Sodium) 3,850 unit 1X ONCE IV Last administered on 01/02/20at 17:18; Start 01/02/20 at 16:30; Stop 01/02/20 at 16:31; Status DC Heparin Sodium/ Dextrose 250 ml @ 0 mls/hr CONT PRN IV PER PROTOCOL Last administered on 01/04/20at 14:21; Start 01/02/20 at 16:30; Stop 01/05/20 at 10:41; Status DC Heparin Sodium (Porcine) (Heparin Sodium) 1,600 unit PRN Q6HRS PRN IV FOR UFH LEVEL LESS THAN 0.2 Last administered on 01/04/20at 14:20; Start 01/02/20 at 16:30; Stop 01/05/20 at 10:41; Status DC Info (Anti-Coagulation Monitoring By Pharmacy) 1 each PRN DAILY PRN MC SEE COMMENTS Last administered on 01/03/20at 10:37; Start 01/02/20 at 16:30 Ceftriaxone Sodium (Rocephin) 1 gm 1X ONCE IVP Last administered on 01/02/20at 17:02; Start 01/02/20 at 16:45; Stop 01/02/20 at 16:46; Status DC Sodium Chloride 1,000 ml @ 1,000 mls/hr 1X ONCE IV Last administered on 01/02/20at 17:03; Start 01/02/20 at 16:45; Stop 01/02/20 at 17:44; Status DC Acetaminophen (Tylenol) 1,000 mg 1X ONCE PO Last administered on 01/02/20at 17:02; Start 01/02/20 at 16:45; Stop 01/02/20 at 16:46; Status DC Aspirin (Adilson Aspirin) 325 mg 1X ONCE PO ; Start 01/02/20 at 16:45; Stop 01/02/20 at 16:46; Status DC Ibuprofen (Motrin) 600 mg 1X ONCE PO Last administered on 01/02/20at 17:03; Start 01/02/20 at 16:45; Stop 01/02/20 at 16:46; Status DC Vancomycin HCl (Vanco Per Pharmacy) 1 each PRN DAILY PRN MC SEE COMMENTS Last administered on 01/03/20at 10:39; Start 01/02/20 at 17:30; Stop 01/03/20 at 10:46; Status DC Vancomycin HCl 1.5 gm/Sodium Chloride 500 ml @ 250 mls/hr 1X ONCE IV Last administered on 01/02/20at 17:48; Start 01/02/20 at 18:00; Stop 01/02/20 at 19:59; Status DC Vancomycin HCl 1 gm/Sodium Chloride 250 ml @ 250 mls/hr Q24H IV ; Start 01/03/20 at 18:00; Stop 01/03/20 at 10:46; Status DC Vancomycin HCl (Vancomycin Trough Level) 1 each 1X ONCE MC ; Start 01/04/20 at 17:30; Stop 01/03/20 at 10:46; Status DC Magnesium Sulfate 50 ml @ 25 mls/hr 1X ONCE IV Last administered on 01/02/20at 23:42; Start 01/02/20 at 22:30; Stop 01/03/20 at 00:29; Status DC Allopurinol (Zyloprim) 300 mg DAILY PO Last administered on 01/05/20 07:53; Start 01/03/20 at 09:00 Aspirin (Adilson Aspirin) 325 mg DAILYWBKFT PO Last administered on 01/05/20at 07:53; Start 01/03/20 at 08:00 Atorvastatin Calcium (Lipitor) 40 mg QHS PO Last administered on 01/04/20at 20:40; Start 01/02/20 at 22:45 Losartan Potassium (Cozaar) 50 mg DAILY PO Last administered on 01/05/20at 07:53; Start 01/03/20 at 09:00 Metoprolol Succinate (Toprol Xl) 25 mg DAILY PO Last administered on 01/05/20at 07:54; Start 01/03/20 at 09:00 Tamsulosin HCl (Flomax) 0.4 mg BID PO Last administered on 01/05/20at 07:52; Start 01/02/20 at 22:45 Tramadol HCl (Ultram) 50 mg PRN Q6HRS PRN PO PAIN Last administered on 01/04/20at 13:08; Start 01/02/20 at 22:30 Trazodone HCl (Desyrel) 50 mg QHS PO Last administered on 01/04/20at 20:39; Start 01/02/20 at 22:45 Amlodipine Besylate (Norvasc) 5 mg DAILY16 PO Last administered on 01/04/20at 17:20; Start 01/03/20 at 16:00 Piperacillin Sod/ Tazobactam Sod 3.375 gm/Sodium Chloride 50 ml @ 100 mls/hr Q6HRS IV Last administered on 01/05/20at 10:56; Start 01/03/20 at 12:00; Stop 01/05/20 at 13:04; Status DC Lactobacillus Rhamnosus (Culturelle) 1 cap BID PO Last administered on 01/05/20at 07:53; Start 01/03/20 at 21:00 Iohexol (Omnipaque 240 Mg/ml) 30 ml 1X ONCE PO Last administered on 01/03/20at 12:48; Start 01/03/20 at 11:30; Stop 01/03/20 at 11:31; Status DC Iohexol (Omnipaque 300 Mg/ml) 60 ml 1X ONCE IV Last administered on 01/03/20at 12:48; Start 01/03/20 at 11:30; Stop 01/03/20 at 11:31; Status DC Info (CONTRAST GIVEN -- Rx MONITORING) 1 each PRN DAILY PRN MC SEE COMMENTS; Start 01/03/20 at 11:30; Stop 01/05/20 at 11:29; Status DC Potassium Chloride (Klor-Con) 40 meq 1X ONCE PO Last administered on 01/04/20at 12:47; Start 01/04/20 at 11:30; Stop 01/04/20 at 11:31; Status DC Potassium Chloride (Klor-Con) 20 meq 1X ONCE PO Last administered on 01/04/20at 14:21; Start 01/04/20 at 14:30; Stop 01/04/20 at 14:31; Status DC Alprazolam (Xanax) 0.25 mg PRN Q8HRS PRN PO ANXIETY / AGITATION Last administered on 01/04/20at 20:39; Start 01/04/20 at 20:30 Lorazepam (Ativan Inj) 0.25 mg PRN Q6HRS PRN IVP ANXIETY / AGITATION Last administered on 01/05/20at 05:44; Start 01/04/20 at 22:15; Stop 01/05/20 at 10:41; Status DC Haloperidol Lactate (Haldol Inj) 1 mg PRN Q4HRS PRN IVP AGITATION Last administered on 01/05/20at 10:56; Start 01/05/20 at 10:45; Stop 01/05/20 at 13:03; Status DC Haloperidol Lactate (Haldol Inj) 1 mg PRN Q4HRS PRN IVP AGITATION; Start 01/05/20 at 11:00 Piperacillin Sod/ Tazobactam Sod 4.5 gm/Sodium Chloride 100 ml @ 200 mls/hr Q6HRS IV ; Start 01/05/20 at 18:00 Active Scripts Active Toprol Xl (Metoprolol Succinate) 25 Mg Tab.er.24h 1 Tab PO DAILY 30 Days Atorvastatin Calcium 40 Mg Tablet 40 Mg PO QHS 30 Days Reported Flomax (Tamsulosin Hcl) 0.4 Mg Cap.er.24h 1 Cap PO BID Tramadol Hcl 50 Mg Tablet 50 Mg PO Q6HRS PRN Trazodone Hcl 50 Mg Tablet 1 Tab PO QHS Aspirin 325 Mg Tablet 1 Tab PO DAILY Allopurinol 300 Mg Tablet 1 Tab PO DAILY Losartan Potassium 50 Mg Tablet 50 Mg PO DAILY NITROGLYCERIN SubLingual (Nitroglycerin) 0.4 Mg Tab.subl 1 Tab SL UD Felodipine Er (Felodipine) 5 Mg Tab.er.24h 1 Tab PO DAILY16 Vitals/I & O Vital Sign - Last 24 Hours 01/04/20 01/04/20 01/04/20 01/04/20 14:25 15:00 17:20 19:55 Temp 97.4 97.4 Pulse 73 73 71 Resp 16 21 B/P (MAP) 109/55 (73) 109/55 109/67 (81) Pulse Ox 93 99 98 O2 Delivery Room Air Room Air Room Air O2 Flow Rate 1.0 01/04/20 01/04/20 01/05/20 01/05/20 20:26 23:00 00:24 03:45 Temp 97.0 97.0 Pulse 68 Resp 21 B/P (MAP) 140/64 (89) 135/64 (87) Pulse Ox 95 O2 Delivery Room Air Room Air Room Air Room Air 01/05/20 01/05/20 01/05/20 01/05/20 07:00 07:53 07:54 08:00 Temp 96.6 96.6 Pulse 87 81 81 Resp 16 B/P (MAP) 142/73 (96) 142/73 142/73 Pulse Ox 98 O2 Delivery Room Air Room Air O2 Flow Rate 1.0 Intake and Output 01/04/20 01/04/20 01/05/20 15:00 23:00 07:00 Intake Total 270 ml 100 ml Balance 270 ml 100 ml DANIELA BETANCUR MD Jan 05, 2020 13:38
[2020-01-05] MEDS: amLODIPine BESYLATE 5 MG TABLET PO SCH (15:36)
[2020-01-05] MEDS: PIPERACILLIN/TAZOBACTAM 4.5 GM in IV NORMAL SALINE 100ML 100 ML IV SCH ×2 (17:31→23:43)
--- NOTE | 2020-01-05 19:10 | NUR ---
Assessment completed vss poc explained pt agitated son at bedside poc explained call light and bed alarm set pt has an 1:1 until 2229 will resume care.
[2020-01-05] MEDS: HALOPERIDOL LACTATE 5 MG/ML VIAL. IVP PRN (20:15)
[2020-01-05] MEDS: ATORVASTATIN CALCIUM 40 MG TABLET. PO SCH ×2 (20:24→21:00)
[2020-01-05] MEDS: traZODone 50 MG TABLET. PO SCH ×2 (20:24→21:00)
[2020-01-06] MEDS: HALOPERIDOL LACTATE 5 MG/ML VIAL. IVP PRN (01:13)
[2020-01-06 03:00] VITALS: BP 153/78
[2020-01-06 05:06] LABS: BASO % 0 % (0-3); EOS % 1 % (0-3); HEMATOCRIT 30.9 % (39.0-53.0); HEMOGLOBIN 10.4 g/dL (13.0-17.5); LYMPH # 1.2 x10^3/uL (1.0-4.8); LYMPH % 14 % (24-48); MEAN CORPUSCULAR HEMOGLOBIN 28 pg (25-35); MEAN CORPUSCULAR HGB CONC 34 g/dL (31-37); MEAN CORPUSCULAR VOLUME 85 fL (79-100); MONO # 0.7 x10^3/uL (0.0-1.1); MONO % 9 % (0-9); NEUT # 6.5 x10^3/uL (1.8-7.7); NEUT % 77 % (31-73); PLATELET COUNT 121 x10^3/uL (140-400); RED BLOOD COUNT 3.66 x10^6/uL (4.30-5.70); RED CELL DISTRIBUTION WIDTH 15.8 % (11.5-14.5); WHITE BLOOD COUNT 8.4 x10^3/uL (4.0-11.0)
[2020-01-06 06:03] LABS: CALCIUM 8.4 mg/dL (8.5-10.1); GFR 85.9; POTASSIUM 3.4 mmol/L (3.5-5.1)
[2020-01-06] MEDS: PIPERACILLIN/TAZOBACTAM 4.5 GM in IV NORMAL SALINE 100ML 100 ML IV SCH ×3 (06:10→17:37)
[2020-01-06 07:04] VITALS: BP 148/72
--- NOTE | 2020-01-06 08:44 | PDOC ---
Infectious Disease Note Subjective: Subjective Very confused this am has been refusing his pills d/w RN no bm for 2 days no /n/v reported Vital Signs: Vital Signs Vital Signs Date Time Temp Pulse Resp B/P (MAP) Pulse Ox O2 Delivery O2 Flow Rate FiO2 01/06/20 07:04 98.6 70 20 148/72 (97) 100 Room Air 98.6 01/05/20 15:00 1.0 Physical Exam: PHYSICAL EXAM GENERAL: Alert and not in distress.- sitting on side of bed HEENT: eyes closed and wound not open NECK: Supple, no JVP, no lymphadenopathy. LUNGS: Clear. HEART: S1, S2 regular. ABDOMEN: Benign.No CVA tenderness EXTREMITIES: No edema or cyanosis. Deformities - no signs of infection . right 2nd toe amp SKIN: Unremarkable. NEURO: Confused and pleasant Medications: Inpatient Meds: Current Medications Medications (Trade) Dose Ordered Sig/Kalyn Start Time Stop Time Status Last Admin Dose Admin Acetaminophen (Tylenol) 1,000 mg 1X ONCE 01/02/20 16:45 01/02/20 16:46 DC 01/02/20 17:02 1,000 MG Allopurinol (Zyloprim) 300 mg DAILY 01/03/20 09:00 01/05/20 07:53 300 MG Alprazolam (Xanax) 0.25 mg PRN Q8HRS PRN 01/04/20 20:30 01/04/20 20:39 0.25 MG Amlodipine Besylate (Norvasc) 5 mg DAILY16 01/03/20 16:00 01/05/20 15:36 5 MG Aspirin (Adilson Aspirin) 325 mg DAILYWBKFT 01/03/20 08:00 01/05/20 07:53 325 MG Atorvastatin Calcium (Lipitor) 40 mg QHS 01/02/20 22:45 01/04/20 20:40 40 MG Ceftriaxone Sodium (Rocephin) 1 gm 1X ONCE 01/02/20 16:45 01/02/20 16:46 DC 01/02/20 17:02 1 GM Haloperidol Lactate (Haldol Inj) 1 mg PRN Q4HRS PRN 01/05/20 11:00 01/06/20 01:13 1 MG Heparin Sodium (Porcine) (Heparin Sodium) 1,600 unit PRN Q6HRS PRN 01/02/20 16:30 2/23/20 10:41 DC 01/04/20 14:20 1,600 UNIT Heparin Sodium/ Dextrose 250 ml @ 0 mls/hr CONT PRN 01/02/20 16:30 01/05/20 10:41 DC 01/04/20 14:21 12.8 MLS/HR Ibuprofen (Motrin) 600 mg 1X ONCE 01/02/20 16:45 01/02/20 16:46 DC 01/02/20 17:03 600 MG Info (Anti-Coagulation Monitoring By Pharmacy) 1 each PRN DAILY PRN 01/02/20 16:30 01/03/20 10:37 1 EACH Info (CONTRAST GIVEN -- Rx MONITORING) 1 each PRN DAILY PRN 01/03/20 11:30 01/05/20 11:29 DC Iohexol (Omnipaque 240 Mg/ml) 30 ml 1X ONCE 01/03/20 11:30 01/03/20 11:31 DC 01/03/20 12:48 30 ML Iohexol (Omnipaque 300 Mg/ml) 60 ml 1X ONCE 01/03/20 11:30 01/03/20 11:31 DC 01/03/20 12:48 60 ML Lactobacillus Rhamnosus (Culturelle) 1 cap BID 01/03/20 21:00 01/05/20 07:53 1 CAP Lorazepam (Ativan Inj) 0.25 mg PRN Q6HRS PRN 01/04/20 22:15 01/05/20 10:41 DC 01/05/20 05:44 0.25 MG Losartan Potassium (Cozaar) 50 mg DAILY 01/03/20 09:00 01/05/20 07:53 50 MG Magnesium Sulfate 50 ml @ 25 mls/hr 1X ONCE 01/02/20 22:30 01/03/20 00:29 DC 01/02/20 23:42 25 MLS/HR Metoprolol Succinate (Toprol Xl) 25 mg DAILY 01/03/20 09:00 01/05/20 07:54 25 MG Piperacillin Sod/ Tazobactam Sod 3.375 gm/Sodium Chloride 50 ml @ 100 mls/hr Q6HRS 01/03/20 12:00 01/05/20 13:04 DC 01/05/20 10:56 100 MLS/HR Piperacillin Sod/ Tazobactam Sod 4.5 gm/Sodium Chloride 100 ml @ 200 mls/hr Q6HRS 01/05/20 18:00 01/06/20 06:10 200 MLS/HR Potassium Chloride (Klor-Con) 20 meq 1X ONCE 01/04/20 14:30 01/04/20 14:31 DC 01/04/20 14:21 20 MEQ Sodium Chloride 1,000 ml @ 1,000 mls/hr 1X ONCE 01/02/20 16:45 01/02/20 17:44 DC 01/02/20 17:03 1,000 MLS/HR Tamsulosin HCl (Flomax) 0.4 mg BID 01/02/20 22:45 01/05/20 07:52 0.4 MG Tramadol HCl (Ultram) 50 mg PRN Q6HRS PRN 01/02/20 22:30 01/04/20 13:08 50 MG Trazodone HCl (Desyrel) 50 mg QHS 01/02/20 22:45 01/04/20 20:39 50 MG Vancomycin HCl (Vanco Per Pharmacy) 1 each PRN DAILY PRN 01/02/20 17:30 01/03/20 10:46 DC 01/03/20 10:39 1 EACH Vancomycin HCl (Vancomycin Trough Level) 1 each 1X ONCE 01/04/20 17:30 01/03/20 10:46 DC Vancomycin HCl 1.5 gm/Sodium Chloride 500 ml @ 250 mls/hr 1X ONCE 01/02/20 18:00 01/02/20 19:59 DC 01/02/20 17:48 250 MLS/HR Vancomycin HCl 1 gm/Sodium Chloride 250 ml @ 250 mls/hr Q24H 01/03/20 18:00 01/03/20 10:46 DC Labs: Lab Laboratory Tests Test 01/06/20 04:05 White Blood Count 8.4 x10^3/uL (4.0-11.0) Red Blood Count 3.66 x10^6/uL (4.30-5.70) Hemoglobin 10.4 g/dL (13.0-17.5) Hematocrit 30.9 % (39.0-53.0) Mean Corpuscular Volume 85 fL (79-100) Mean Corpuscular Hemoglobin 28 pg (25-35) Mean Corpuscular Hemoglobin Concent 34 g/dL (31-37) Red Cell Distribution Width 15.8 % (11.5-14.5) Platelet Count 121 x10^3/uL (140-400) Neutrophils (%) (Auto) 77 % (31-73) Lymphocytes (%) (Auto) 14 % (24-48) Monocytes (%) (Auto) 9 % (0-9) Eosinophils (%) (Auto) 1 % (0-3) Basophils (%) (Auto) 0 % (0-3) Neutrophils # (Auto) 6.5 x10^3/uL (1.8-7.7) Lymphocytes # (Auto) 1.2 x10^3/uL (1.0-4.8) Monocytes # (Auto) 0.7 x10^3/uL (0.0-1.1) Eosinophils # (Auto) 0.0 x10^3/uL (0.0-0.7) Basophils # (Auto) 0.0 x10^3/uL (0.0-0.2) Sodium Level 141 mmol/L (136-145) Potassium Level 3.4 mmol/L (3.5-5.1) Chloride Level 107 mmol/L (98-107) Carbon Dioxide Level 24 mmol/L (21-32) Anion Gap 10 (6-14) Blood Urea Nitrogen 10 mg/dL (8-26) Creatinine 1.0 mg/dL (0.7-1.3) Estimated GFR (Cockcroft-Gault) 85.9 Glucose Level 70 mg/dL (70-99) Calcium Level 8.4 mg/dL (8.5-10.1) Objective: Assessment: 1. Gram-negative sepsis.01/02 ID pending 2. E Coli UTI not ESBL 3. Fever resolved. 4. Leukocytosis 5. Lactic acidosis- better 6. Dementia.- fluctuating 7. Coronary artery disease. 8. JESSEE - better 9. NSTEMI 10.? low grade SBO on CT Plan: Plan of Care Cont Zosyn, will deescalate soon maintain aspiration precautions F/u labs in am and cults Dementia per primary May need GI eval - defer to Primary but looks well Will need Podiatry eval at some point D/W Dr Johnson D/w daughter D/LUCIO LOUISE RN, MD Jan 06, 2020 08:44
[2020-01-06] MEDS: TAMSULOSIN 0.4 MG CAP.ER.24H. PO SCH ×2 (09:09→20:00)
[2020-01-06] MEDS: ASPIRIN 325 MG TABLET PO SCH (09:09)
[2020-01-06] MEDS: ALLOPURINOL 300 MG TABLET. PO SCH (09:09)
[2020-01-06] MEDS: LOSARTAN POTASSIUM 50 MG TABLET. PO SCH (09:09)
[2020-01-06] MEDS: LACTOBACILLUS RHAMNOSUS GG 1 CAPSULE. PO SCH ×2 (09:09→19:59)
[2020-01-06] MEDS: METOPROLOL SUCC 24HR ER 25 MG TAB.ER.24H. PO SCH (09:10)
--- NOTE | 2020-01-06 09:40 | PDOC ---
PROGRESS NOTES Subjective Subjective not agitated ,much calm today Objective Objective Vital Signs Date Time Temp Pulse Resp B/P (MAP) Pulse Ox O2 Delivery O2 Flow Rate FiO2 01/06/20 09:10 70 148/72 01/06/20 07:04 98.6 20 100 Room Air 98.6 01/05/20 15:00 1.0 Intake and Output 01/06/20 07:00 Intake Total 410 ml Balance 410 ml Intake Oral 210 ml Blood Product IV Normal Saline Flush 200 ml # Voids 5 Physical Exam Abdomen: Normal bowel sounds Heart: Regular rate Extremities: No cyanosis General: mild distress HEENT: Atraumatic, Mucous membr. moist/pink Lungs: Other (mildly decreased breath sounds) MUSCULOSKELETAL: Osteoarthritic changes both hands Neuro: Sensation intact Psych/Mental Status: Other (calm today) Skin: No breakdown, No significant lesion Diagnosis Problem List Problems Medical Problems: (1) Fever Status: Acute (2) Lactic acidosis Status: Acute (3) Non-STEMI (non-ST elevated myocardial infarction) Status: Acute (4) UTI (urinary tract infection) Status: Acute Assessment Assessment Problems Medical Problems: (1) Fever Status: Acute (2) Lactic acidosis Status: Acute (3) Non-STEMI (non-ST elevated myocardial infarction) Status: Acute (4) UTI (urinary tract infection) Status: Acute FINAL IMPRESSION:Agitation with hallucinations improved with haldol. 1. Fever.gram neg bacteremia 2. Sepsis with elevated white count. 3. Urinary tract infection, E Coli ,possible pyelonephritis, possible pr ostatitis. 4. Elevated troponin, non-ST elevation myocardial infarction. 5. History of pacemaker for sick sinus syndrome. 6. History of stents in the past. 7. Dementia. 8. Hypertension. 9. Arthritis, history of gout. PLAN: move to medical floor Haldol 1 mg iv q 4 hours prn . d/c ativan blood c/s positive 2/2 for gram neg.s/s pending urine c/s gram neg.E Coli sensitivity done pot 3.4 replaced wbc 8 ,normalon zosyn d/c heparin drip. ct abd and pelvis scan -ve spoke with ID. At this time, was admit to hospital. Urine and blood cultures. Start on vancomycin and Rocephin. We will change it to vancomycin and Zosyn. ID consult. We will get a CT of the abdomen and pelvis, look at the prostate and the kidneys. Also, the patient is on heparin drip for non-STEMI. Echocardiogram for left ventricular function and see how the patient's condition improves in the next 24-48 hours. The patient is pain free at this point. Try to contact the patient's , left a message. Plan Plan of Care Problems Medical Problems: (1) Fever Status: Acute (2) Lactic acidosis Status: Acute (3) Non-STEMI (non-ST elevated myocardial infarction) Status: Acute (4) UTI (urinary tract infection) Status: Acute Comment Review of Relevant I have reviewed the following items sachi (where applicable) has been applied. Labs Laboratory Tests Test 01/06/20 04:05 White Blood Count 8.4 x10^3/uL (4.0-11.0) Red Blood Count 3.66 x10^6/uL (4.30-5.70) Hemoglobin 10.4 g/dL (13.0-17.5) Hematocrit 30.9 % (39.0-53.0) Mean Corpuscular Volume 85 fL (79-100) Mean Corpuscular Hemoglobin 28 pg (25-35) Mean Corpuscular Hemoglobin Concent 34 g/dL (31-37) Red Cell Distribution Width 15.8 % (11.5-14.5) Platelet Count 121 x10^3/uL (140-400) Neutrophils (%) (Auto) 77 % (31-73) Lymphocytes (%) (Auto) 14 % (24-48) Monocytes (%) (Auto) 9 % (0-9) Eosinophils (%) (Auto) 1 % (0-3) Basophils (%) (Auto) 0 % (0-3) Neutrophils # (Auto) 6.5 x10^3/uL (1.8-7.7) Lymphocytes # (Auto) 1.2 x10^3/uL (1.0-4.8) Monocytes # (Auto) 0.7 x10^3/uL (0.0-1.1) Eosinophils # (Auto) 0.0 x10^3/uL (0.0-0.7) Basophils # (Auto) 0.0 x10^3/uL (0.0-0.2) Sodium Level 141 mmol/L (136-145) Potassium Level 3.4 mmol/L (3.5-5.1) Chloride Level 107 mmol/L (98-107) Carbon Dioxide Level 24 mmol/L (21-32) Anion Gap 10 (6-14) Blood Urea Nitrogen 10 mg/dL (8-26) Creatinine 1.0 mg/dL (0.7-1.3) Estimated GFR (Cockcroft-Gault) 85.9 Glucose Level 70 mg/dL (70-99) Calcium Level 8.4 mg/dL (8.5-10.1) Microbiology 01/02/20 Urine Culture - Final, Complete 01/02/20 Urine Culture Result 1 (DANY) - Final, Complete 01/02/20 Antimicrobic Susceptibility - Final, Complete 01/02/20 Blood Culture - Preliminary, Resulted 01/02/20 Blood Culture Result 1 (DANY) - Preliminary, Resulted Medications Current Medications Haloperidol Lactate (Haldol Inj) 1 mg PRN Q4HRS PRN IVP AGITATION Last administered on 01/05/20at 10:56; Start 01/05/20 at 10:45; Stop 01/05/20 at 1 3:03; Status DC Haloperidol Lactate (Haldol Inj) 1 mg PRN Q4HRS PRN IVP AGITATION Last administered on 01/06/20at 01:13; Start 01/05/20 at 11:00 Piperacillin Sod/ Tazobactam Sod 4.5 gm/Sodium Chloride 100 ml @ 200 mls/hr Q6HRS IV Last administered on 01/06/20at 06:10; Start 01/05/20 at 18:00 Vitals/I & O Vital Sign - Last 24 Hours 01/05/20 01/05/20 01/05/20 01/05/20 15:00 15:36 17:30 19:00 Temp 98.2 98.7 98.2 98.7 Pulse 80 81 77 79 Resp 18 18 B/P (MAP) 180/80 (113) 142/73 141/60 (87) 176/78 (110) Pulse Ox 98 96 O2 Delivery Room Air Room Air O2 Flow Rate 1.0 01/05/20 01/05/20 01/06/20 01/06/20 19:10 23:00 03:00 07:04 Temp 98.2 98.5 98.6 98.2 98.5 98.6 Pulse 77 70 70 Resp 16 20 20 B/P (MAP) 149/71 (97) 153/78 (103) 148/72 (97) Pulse Ox 97 99 100 O2 Delivery Room Air Room Air Room Air Room Air 01/06/20 01/06/20 09:09 09:10 Pulse 70 70 B/P (MAP) 148/72 148/72 Intake and Output 01/05/20 01/05/20 01/06/20 15:00 23:00 07:00 Intake Total 410 ml 0 ml Balance 410 ml 0 ml GUILLE PINEDA MD Jan 06, 2020 09:40
[2020-01-06] MEDS ORDERED: POTASSIUM CHLORIDE 20 MEQ TABLET.ER. PO ONE (09:45)
[2020-01-06 10:12] VITALS: BP 138/62
--- NOTE | 2020-01-06 11:44 | NUR ---
SS following for discharge planning. SS reviewed pt chart. Pt is from home with spouse and is currently on room air. PT/OT ordered. SS will continue to follow for discharge planning.
[2020-01-06] MEDS: DOCUSATE SODIUM 100 MG CAPSULE. PO PRN (12:17)
[2020-01-06 14:45] VITALS: BP 133/71
--- NOTE | 2020-01-06 15:11 | PDOC ---
BARRINGTON FINLEY BOAT PAINTER 01/06/20 1511: CARDIO Progress Notes Date and Time Date of Service 01/06/20 Time of Evaluation 1500 Subjective Subjective: No Chest Pain, No shortness of breath, No Palpitations Vitals Vitals Vital Signs Date Time Temp Pulse Resp B/P (MAP) Pulse Ox O2 Delivery O2 Flow Rate FiO2 01/06/20 14:45 98.0 72 20 133/71 (91) 100 Room Air 98.0 01/06/20 08:00 1.0 Weight Weight [ ] Input and Output Intake and Output Intake and Output 01/06/20 07:00 Intake Total 410 ml Balance 410 ml Intake Oral 210 ml Blood Product IV Normal Saline Flush 200 ml # Voids 5 Laboratory Labs Laboratory Tests Test 01/06/20 04:05 White Blood Count 8.4 x10^3/uL (4.0-11.0) Red Blood Count 3.66 x10^6/uL (4.30-5.70) Hemoglobin 10.4 g/dL (13.0-17.5) Hematocrit 30.9 % (39.0-53.0) Mean Corpuscular Volume 85 fL (79-100) Mean Corpuscular Hemoglobin 28 pg (25-35) Mean Corpuscular Hemoglobin Concent 34 g/dL (31-37) Red Cell Distribution Width 15.8 % (11.5-14.5) Platelet Count 121 x10^3/uL (140-400) Neutrophils (%) (Auto) 77 % (31-73) Lymphocytes (%) (Auto) 14 % (24-48) Monocytes (%) (Auto) 9 % (0-9) Eosinophils (%) (Auto) 1 % (0-3) Basophils (%) (Auto) 0 % (0-3) Neutrophils # (Auto) 6.5 x10^3/uL (1.8-7.7) Lymphocytes # (Auto) 1.2 x10^3/uL (1.0-4.8) Monocytes # (Auto) 0.7 x10^3/uL (0.0-1.1) Eosinophils # (Auto) 0.0 x10^3/uL (0.0-0.7) Basophils # (Auto) 0.0 x10^3/uL (0.0-0.2) Sodium Level 141 mmol/L (136-145) Potassium Level 3.4 mmol/L (3.5-5.1) Chloride Level 107 mmol/L (98-107) Carbon Dioxide Level 24 mmol/L (21-32) Anion Gap 10 (6-14) Blood Urea Nitrogen 10 mg/dL (8-26) Creatinine 1.0 mg/dL (0.7-1.3) Estimated GFR (Cockcroft-Gault) 85.9 Glucose Level 70 mg/dL (70-99) Calcium Level 8.4 mg/dL (8.5-10.1) Microbiology Micro Microbiology 01/02/20 Urine Culture - Final, Complete 01/02/20 Urine Culture Result 1 (DANY) - Final, Complete 01/02/20 Antimicrobic Susceptibility - Final, Complete 01/02/20 Blood Culture - Preliminary, Resulted 01/02/20 Blood Culture Result 1 (DANY) - Preliminary, Resulted Physical Exam HEENT: Neck Supple W Full Motion Chest: Symmetric LUNGS: Clear to Auscultation Heart: S1S2, RRR, murmurs (2/6 systolic murmur) Abdomen: Soft N/T Extremities: No Edema Neurology: alert, confused Assessment Assessment 1. NSTEMI: Peaked trop at 3.46. No chest pain. Echocardiogram with an ejection fraction at 40-45% 2. UTI/sepsis/bacteremia: Tmax 103.7. Followed by ID. Gram-negative/E coli sepsis 3. Metabolic encephaloapthy. remains confused. 4. HTN: controlled 5. CAD; stent in 2001. recent MPI 05/2019 nml. 6. PAD: clincally stable. prior stent placement ro RLE 7. SSS: S/P PPM ([facility]) 8. Thrombocytopenia: Improved to 121. 9. Hx of PAT 10. ? SBO on CT Recommendations Secondary prevention measures; ASA,statin, BB, ARB Ongoing antibiotic therapy Consider further ischemic evaluation when more stable. Supportive care GORDON RICHARDSON MD 01/06/202034: CARDIO Progress Notes Assessment Assessment Patient seen and examined. Agree with BILINGUAL TEACHER AIDE's assessment and plan. Patient CP free Plan ischemic evaluation once active issues resolve SSS s/p PPM stable BARRINGTON FINLEY APRN Jan 06, 2020 15:11 GORDON RICHARDSON MD Jan 06, 2020 20:35
[2020-01-06] MEDS: amLODIPine BESYLATE 5 MG TABLET PO SCH (16:13)
[2020-01-06 19:00] VITALS: BP 133/67
--- NOTE | 2020-01-06 19:14 | PDOC1 ---
History & Psych Evaluation Date of Admission: Date of Admission DATE: 01/06/20 TIME: 18:53 Source: Source: Caregiver, Chart review, Patient Identification: Identification Elderly -Austrian gentleman with a history of depression, admitted with confusion. Chief Complaint: Chief Complaint Confusion, disorientation, encephalopathy. History of Present Illness: HPI: He is an elderly -Austrian gentleman with no prior history of mental health challenges admitted with confusion. He has underlying major neurocognitive disorder. He is accompanied by son/family at bedside. Son has also provided meaningful information. Reportedly, he lives with his at home. When home healthcare people came to visit, they found patient in extremely confused state. In hospital, following workup he was found to have urosepsis and multiple other medical health problems including sick sinus syndrome, non-ST elevated [place]. Upon interview, he is cooperative and pleasant. However, he appears confused with rambling thought process. Except for person, he is disoriented to all other spheres. He found repeating this bond writer sentences having difficulty understanding. Son has also noticed same repetition. According to his son, patient has stable mental health through his life. Never been diagnosed with depression, anxiety, psychosis, or bipolar mood issues. Lately he has been a struggling with memory loss, intermittent confusion, and some irritability. Also, patient has fragmented and nonrestorative sleep which exacerbates his anxiety following morning. No prior history of suicidality or homicidal thoughts, violent intent reported by his son. Presently no evidence of rob or hypomania, psychosis, or auditory visual hallucinations. Past Psychiatric History: No reports of past psychiatric illnesses, suicidality, or psychiatric hospital admissions. Past Medical History: Please see medical chart for details. Family History: Except for dementia and sister, no no history of suicidality or major psychiatric illnesses running in family. 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 He has 5 children. No is sues of alcohol abuse, or illicit substance use reported. Current Medications: Current Medications Current Medications Medications (Trade) Dose Ordered Sig/Kalyn Start Time Stop Time Status Last Admin Dose Admin Acetaminophen (Tylenol) 1,000 mg 1X ONCE 01/02/20 16:45 01/02/20 16:46 DC 01/02/20 17:02 1,000 MG Allopurinol (Zyloprim) 300 mg DAILY 01/03/20 09:00 01/06/20 09:09 300 MG Alprazolam (Xanax) 0.25 mg PRN Q8HRS PRN 01/04/20 20:30 01/04/20 20:39 0.25 MG Amlodipine Besylate (Norvasc) 5 mg DAILY16 01/03/20 16:00 01/06/20 16:13 5 MG Aspirin (Adilson Aspirin) 325 mg DAILYWBKFT 01/03/20 08:00 01/06/20 09:09 325 MG Atorvastatin Calcium (Lipitor) 40 mg QHS 01/02/20 22:45 01/04/20 20:40 40 MG Ceftriaxone Sodium (Rocephin) 1 gm 1X ONCE 01/02/20 16:45 01/02/20 16:46 DC 01/02/20 17:02 1 GM Docusate Sodium (Colace) 100 mg PRN DAILY PRN 01/06/20 09:45 01/06/20 12:17 100 MG Haloperidol Lactate (Haldol Inj) 1 mg PRN Q4HRS PRN 01/05/20 11:00 01/06/20 01:13 1 MG Heparin Sodium (Porcine) (Heparin Sodium) 1,600 unit PRN Q6HRS PRN 01/02/20 16:30 01/05/20 10:41 DC 01/04/20 14:20 1,600 UNIT Heparin Sodium/ Dextrose 250 ml @ 0 mls/hr CONT PRN 01/02/20 16:30 01/05/20 10:41 DC 01/04/20 14:21 12.8 MLS/HR Ibuprofen (Motrin) 600 mg 1X ONCE 01/02/20 16:45 01/02/20 16:46 DC 01/02/20 17:03 600 MG Info (Anti-Coagulation Monitoring By Pharmacy) 1 each PRN DAILY PRN 01/02/20 16:30 01/06/20 15:43 DC 01/03/20 10:37 1 EACH Info (CONTRAST GIVEN -- Rx MONITORING) 1 each PRN DAILY PRN 01/03/20 11:30 01/05/20 11:29 DC Iohexol (Omnipaque 240 Mg/ml) 30 ml 1X ONCE 01/03/20 11:30 01/03/20 11:31 DC 01/03/20 12:48 30 ML Iohexol (Omnipaque 300 Mg/ml) 60 ml 1X ONCE 01/03/20 11:30 01/03/20 11:31 DC 01/03/20 12:48 60 ML Lactobacillus Rhamnosus (Culturelle) 1 cap BID 01/03/20 21:00 01/06/20 09:09 1 CAP Lorazepam (Ativan Inj) 0.25 mg PRN Q6HRS PRN 01/04/20 22:15 01/05/20 10:41 DC 01/05/20 05:44 0.25 MG Losartan Potassium (Cozaar) 50 mg DAILY 01/03/20 09:00 01/06/20 09:09 50 MG Magnesium Sulfate 50 ml @ 25 mls/hr 1X ONCE 01/02/20 22:30 01/03/20 00:29 DC 01/02/20 23:42 25 MLS/HR Metoprolol Succinate (Toprol Xl) 25 mg DAILY 01/03/20 09:00 01/06/20 09:10 25 MG Piperacillin Sod/ Tazobactam Sod 3.375 gm/Sodium Chloride 50 ml @ 100 mls/hr Q6HRS 01/03/20 12:00 01/05/20 13:04 DC 01/05/20 10:56 100 MLS/HR Piperacillin Sod/ Tazobactam Sod 4.5 gm/Sodium Chloride 100 ml @ 200 mls/hr Q6HRS 01/05/20 18:00 01/06/20 17:37 200 MLS/HR Potassium Chloride (Klor-Con) 20 meq 1X ONCE 01/06/20 09:45 01/06/20 09:46 DC 01/06/20 12:18 20 MEQ Sodium Chloride 1,000 ml @ 1,000 mls/hr 1X ONCE 01/02/20 16:45 01/02/20 17:44 DC 01/02/20 17:03 1,000 MLS/HR Tamsulosin HCl (Flomax) 0.4 mg BID 01/02/20 22:45 01/06/20 09:09 0.4 MG Tramadol HCl (Ultram) 50 mg PRN Q6HRS PRN 01/02/20 22:30 01/04/20 13:08 50 MG Trazodone HCl (Desyrel) 50 mg QHS 2/20/20 22:45 01/04/20 20:39 50 MG Vancomycin HCl (Vanco Per Pharmacy) 1 each PRN DAILY PRN 01/02/20 17:30 01/03/20 10:46 DC 01/03/20 10:39 1 EACH Vancomycin HCl (Vancomycin Trough Level) 1 each 1X ONCE 01/04/20 17:30 01/03/20 10:46 DC Vancomycin HCl 1.5 gm/Sodium Chloride 500 ml @ 250 mls/hr 1X ONCE 01/02/20 18:00 01/02/20 19:59 DC 01/02/20 17:48 250 MLS/HR Vancomycin HCl 1 gm/Sodium Chloride 250 ml @ 250 mls/hr Q24H 01/03/20 18:00 01/03/20 10:46 DC Allergies: Allergies: Coded Allergies: No Known Drug Allergies (Unverified , 09/18/19) Mental Status Examination: Mental Status Examination Elderly -Austrian gentleman appears his his stated age, dressed in hospital gown, fairly nourished. Cooperative and interactive. Except for person, he is disoriented to all other spheres. Speech is very soft, at times mumbling. Thought processes disorganized. No auditory or visual hallucinations. No abnormal delusions. Denies suicidal or homicidal thoughts. Mood is fine Affect is constricted. Insight is limited Judgment is fair Impulse control is fair. Short-term memory is impaired. Concentration and attention his plan is limited. ROS: Psychiatric review of system is positive for confusion, disorganized thought process, and disorientation. Physical Exam: Refer to Physician's note. DIRECTOR PHYSICAL THERAPY: No focal deficit MSK: No EPS, TDK, or abnormal involuntary movements Vitals: Vitals Vital Signs Date Time Temp Pulse Resp B/P (MAP) Pulse Ox O2 Delivery O2 Flow Rate FiO2 01/06/20 16:13 72 133/71 01/06/20 14:45 98.0 20 100 Room Air 98.0 01/06/20 08:00 1.0 Labs: Labs Laboratory Tests Test 01/05/20 06:10 01/05/20 06:11 01/06/20 04:05 Heparin Anti-Xa Act, Unfractionated < 0.10 IU/mL (0.30-0.70) Sodium Level 139 mmol/L (136-145) 141 mmol/L (136-145) Potassium Level 3.6 mmol/L (3.5-5.1) 3.4 mmol/L (3.5-5.1) Chloride Level 106 mmol/L (98-107) 107 mmol/L (98-107) Carbon Dioxide Level 20 mmol/L (21-32) 24 mmol/L (21-32) Anion Gap 13 (6-14) 10 (6-14) Blood Urea Nitrogen 20 mg/dL (8-26) 10 mg/dL (8-26) Creatinine 1.1 mg/dL (0.7-1.3) 1.0 mg/dL (0.7-1.3) Estimated GFR (Cockcroft-Gault) 77.0 85.9 Glucose Level 87 mg/dL (70-99) 70 mg/dL (70-99) Calcium Level 8.2 mg/dL (8.5-10.1) 8.4 mg/dL (8.5-10.1) White Blood Count 12.3 x10^3/uL (4.0-11.0) 8.4 x10^3/uL (4.0-11.0) Red Blood Count 3.97 x10^6/uL (4.30-5.70) 3.66 x10^6/uL (4.30-5.70) Hemoglobin 11.3 g/dL (13.0-17.5) 10.4 g/dL (13.0-17.5) Hematocrit 33.9 % (39.0-53.0) 30.9 % (39.0-53.0) Mean Corpuscular Volume 85 fL (79-100) 85 fL (79-100) Mean Corpuscular Hemoglobin 28 pg (25-35) 28 pg (25-35) Mean Corpuscular Hemoglobin Concent 33 g/dL (31-37) 34 g/dL (31-37) Red Cell Distribution Width 16.0 % (11.5-14.5) 15.8 % (11.5-14.5) Platelet Count 111 x10^3/uL (140-400) 121 x10^3/uL (140-400) Neutrophils (%) (Auto) 82 % (31-73) 77 % (31-73) Lymphocytes (%) (Auto) 12 % (24-48) 14 % (24-48) Monocytes (%) (Auto) 6 % (0-9) 9 % (0-9) Eosinophils (%) (Auto) 1 % (0-3) 1 % (0-3) Basophils (%) (Auto) 0 % (0-3) 0 % (0-3) Neutrophils # (Auto) 10.0 x10^3/uL (1.8-7.7) 6.5 x10^3/uL (1.8-7.7) Lymphocytes # (Auto) 1.5 x10^3/uL (1.0-4.8) 1.2 x10^3/uL (1.0-4.8) Monocytes # (Auto) 0.7 x10^3/uL (0.0-1.1) 0.7 x10^3/uL (0.0-1.1) Eosinophils # (Auto) 0.1 x10^3/uL (0.0-0.7) 0.0 x10^3/uL (0.0-0.7) Basophils # (Auto) 0.0 x10^3/uL (0.0-0.2) 0.0 x10^3/uL (0.0-0.2) Laboratory Tests Test 01/06/20 04:05 White Blood Count 8.4 x10^3/uL (4.0-11.0) Red Blood Count 3.66 x10^6/uL (4.30-5.70) Hemoglobin 10.4 g/dL (13.0-17.5) Hematocrit 30.9 % (39.0-53.0) Mean Corpuscular Volume 85 fL (79-100) Mean Corpuscular Hemoglobin 28 pg (25-35) Mean Corpuscular Hemoglobin Concent 34 g/dL (31-37) Red Cell Distribution Width 15.8 % (11.5-14.5) Platelet Count 121 x10^3/uL (140-400) Neutrophils (%) (Auto) 77 % (31-73) Lymphocytes (%) (Auto) 14 % (24-48) Monocytes (%) (Auto) 9 % (0-9) Eosinophils (%) (Auto) 1 % (0-3) Basophils (%) (Auto) 0 % (0-3) Neutrophils # (Auto) 6.5 x10^3/uL (1.8-7.7) Lymphocytes # (Auto) 1.2 x10^3/uL (1.0-4.8) Monocytes # (Auto) 0.7 x10^3/uL (0.0-1.1) Eosinophils # (Auto) 0.0 x10^3/uL (0.0-0.7) Basophils # (Auto) 0.0 x10^3/uL (0.0-0.2) Sodium Level 141 mmol/L (136-145) Potassium Level 3.4 mmol/L (3.5-5.1) Chloride Level 107 mmol/L (98-107) Carbon Dioxide Level 24 mmol/L (21-32) Anion Gap 10 (6-14) Blood Urea Nitrogen 10 mg/dL (8-26) Creatinine 1.0 mg/dL (0.7-1.3) Estimated GFR (Cockcroft-Gault) 85.9 Glucose Level 70 mg/dL (70-99) Calcium Level 8.4 mg/dL (8.5-10.1) Diagnosis: Diagnosis: 1- Acute delirium, likely hypoactive, multifactorial. 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 4- other specified anxiety disorder. Assessment: Elderly -Aust[place] gentleman with major neurocognitive disorder as confused and delirious likely to urosepsis which is resolving. Because of underlying neurocognitive disorder he is vulnerable for delirium. He continues to be struggling with insomnia. Given his nonrestorative and fragmented sleep, metabolic encephalopathy/delirium, and coronary artery disease/ sick sinus syndrome, it is reasonable to add antipsychotics that would expedite resolution of delirium, help with insomnia, and relatively safer in cardiac condition. Recommending Zyprexa and low doses. Plan: Start Zyprexa 2.5 mg nightly for delirium resolution, and insomnia. Avoid sedatives and hypnotics. Continue PRN medications as is for agitation. Psychoeducation provided. Supportive psychotherapy provided. Risks, benefits, alternatives of the treatment are discussed. Family and patient are in agreement and consented verbally. We will consider increasing dose in case tolerated by patient. Thank you for involving in patient's care. Feel free to call Dr. Hawkins at [phone] with any concern. AMANDA HAWKINS MD Jan 06, 2020 19:14
[2020-01-06] MEDS: ATORVASTATIN CALCIUM 40 MG TABLET. PO SCH (20:00)
[2020-01-06] MEDS: traZODone 50 MG TABLET. PO SCH (20:00)
[2020-01-06] MEDS ORDERED: OLANZapine 2.5 MG TABLET PO SCH (21:00)
[2020-01-06 22:50] VITALS: BP 134/76
[2020-01-07] MEDS: PIPERACILLIN/TAZOBACTAM 4.5 GM in IV NORMAL SALINE 100ML 100 ML IV SCH ×2 (00:08→06:12)
[2020-01-07 03:31] VITALS: BP 131/57
[2020-01-07 07:00] VITALS: BP 135/67
--- NOTE | 2020-01-07 07:52 | PDOC ---
Infectious Disease Note Subjective: Subjective pt smiling no new issues per daughter at bedside no /n/v reported had bm eager for dc Vital Signs: Vital Signs Vital Signs Date Time Temp Pulse Resp B/P (MAP) Pulse Ox O2 Delivery O2 Flow Rate FiO2 01/07/20 07:00 99.0 79 20 135/67 (89) 100 Nasal Cannula 1.0 99.0 Physical Exam: PHYSICAL EXAM GENERAL: Alert and not in distress.- sitting on side of bed HEENT: eyes closed and wound not open NECK: Supple, no JVP, no lymphadenopathy. LUNGS: Clear. HEART: S1, S2 regular. ABDOMEN: Benign.No CVA tenderness EXTREMITIES: No edema or cyanosis. Deformities - no signs of infection . right 2nd toe amp SKIN: Unremarkable. NEURO: Confused and pleasant Medications: Inpatient Meds: Current Medications Medications (Trade) Dose Ordered Sig/Kalyn Start Time Stop Time Status Last Admin Dose Admin Acetaminophen (Tylenol) 1,000 mg 1X ONCE 01/02/20 16:45 01/02/20 16:46 DC 01/02/20 17:02 1,000 MG Allopurinol (Zyloprim) 300 mg DAILY 01/03/20 09:00 01/06/20 09:09 300 MG Alprazolam (Xanax) 0.25 mg PRN Q8HRS PRN 01/04/20 20:30 01/04/20 20:39 0.25 MG Amlodipine Besylate (Norvasc) 5 mg DAILY16 01/03/20 16:00 01/06/20 16:13 5 MG Aspirin (Adilson Aspirin) 325 mg DAILYWBKFT 01/03/20 08:00 01/06/20 09:09 325 MG Atorvastatin Calcium (Lipitor) 40 mg QHS 01/02/20 22:45 01/06/20 20:00 40 MG Ceftriaxone Sodium (Rocephin) 1 gm 1X ONCE 01/02/20 16:45 01/02/20 16:46 DC 01/02/20 17:02 1 GM Docusate Sodium (Colace) 100 mg PRN DAILY PRN 01/06/20 09:45 01/06/20 12:17 100 MG Haloperidol Lactate (Haldol Inj) 1 mg PRN Q4HRS PRN 01/05/20 11:00 01/06/20 01:13 1 MG Heparin Sodium (Porcine) (Heparin Sodium) 1,600 unit PRN Q6HRS PRN 01/02/20 16:30 01/05/20 10:41 DC 01/04/20 14:20 1,600 UNIT Heparin Sodium/ Dextrose 250 ml @ 0 mls/hr CONT PRN 01/02/20 16:30 01/05/20 10:41 DC 01/04/20 14:21 12.8 MLS/HR Ibuprofen (Motrin) 600 mg 1X ONCE 01/02/20 16:45 01/02/20 16:46 DC 01/02/20 17:03 600 MG Info (Anti-Coagulation Monitoring By Pharmacy) 1 each PRN DAILY PRN 01/02/20 16:30 01/06/20 15:43 DC 01/03/20 10:37 1 EACH Info (CONTRAST GIVEN -- Rx MONITORING) 1 each PRN DAILY PRN 01/03/20 11:30 01/05/20 11:29 DC Iohexol (Omnipaque 240 Mg/ml) 30 ml 1X ONCE 01/03/20 11:30 01/03/20 11:31 DC 01/03/20 12:48 30 ML Iohexol (Omnipaque 300 Mg/ml) 60 ml 1X ONCE 01/03/20 11:30 01/03/20 11:31 DC 01/03/20 12:48 60 ML Lactobacillus Rhamnosus (Culturelle) 1 cap BID 01/03/20 21:00 01/06/20 19:59 1 CAP Lorazepam (Ativan Inj) 0.25 mg PRN Q6HRS PRN 01/04/20 22:15 01/05/20 10:41 DC 01/05/20 05:44 0.25 MG Losartan Potassium (Cozaar) 50 mg DAILY 01/03/20 09:00 01/06/20 09:09 50 MG Magnesium Sulfate 50 ml @ 25 mls/hr 1X ONCE 01/02/20 22:30 01/03/20 00:29 DC 01/02/20 23:42 25 MLS/HR Metoprolol Succinate (Toprol Xl) 25 mg DAILY 01/03/20 09:00 01/06/20 09:10 25 MG Olanzapine (ZyPREXA) 2.5 mg HS 01/06/20 21:00 01/06/20 20:00 2.5 MG Piperacillin Sod/ Tazobactam Sod 3.375 gm/Sodium Chloride 50 ml @ 100 mls/hr Q6HRS 01/03/20 12:00 01/05/20 13:04 DC 01/05/20 10:56 100 MLS/HR Piperacillin Sod/ Tazobactam Sod 4.5 gm/Sodium Chloride 100 ml @ 200 mls/hr Q6HRS 01/05/20 18:00 01/07/20 06:12 200 MLS/HR Potassium Chloride (Klor-Con) 20 meq 1X ONCE 01/06/20 09:45 01/06/20 09:46 DC 01/06/20 12:18 20 MEQ Sodium Chloride 1,000 ml @ 1,000 mls/hr 1X ONCE 01/02/20 16:45 01/02/20 17:44 DC 01/02/20 17:03 1,000 MLS/HR Tamsulosin HCl (Flomax) 0.4 mg BID 01/02/20 22:45 01/06/20 20:00 0.4 MG Tramadol HCl (Ultram) 50 mg PRN Q6HRS PRN 01/02/20 22:30 01/04/20 13:08 50 MG Trazodone HCl (Desyrel) 50 mg QHS 01/02/20 22:45 01/06/20 20:00 50 MG Vancomycin HCl (Vanco Per Pharmacy) 1 each PRN DAILY PRN 01/02/20 17:30 01/03/20 10:46 DC 01/03/20 10:39 1 EACH Vancomycin HCl (Vancomycin Trough Level) 1 each 1X ONCE 01/04/20 17:30 01/03/20 10:46 DC Vancomycin HCl 1.5 gm/Sodium Chloride 500 ml @ 250 mls/hr 1X ONCE 01/02/20 18:00 01/02/20 19:59 DC 01/02/20 17:48 250 MLS/HR Vancomycin HCl 1 gm/Sodium Chloride 250 ml @ 250 mls/hr Q24H 01/03/20 18:00 01/03/20 10:46 DC Objective: Assessment: 1. E coli sepsis 01/02 R Cefazolin 2. E Coli UTI not ESBL 3. Fever resolved. 4. Leukocytosis improved 5. Lactic acidosis- better 6. Dementia.- fluctuating 7. Coronary artery disease. 8. JESSEE - better 9. NSTEMI 10.? low grade SBO on CT Plan: Plan of Care dc zosyn ok to dc home on omnicef for 10 days probiotics D/w daughter LUCIO ARAGON MD Jan 07, 2020 07:52
[2020-01-07] MEDS: ALLOPURINOL 300 MG TABLET. PO SCH (08:35)
[2020-01-07] MEDS: ASPIRIN 325 MG TABLET PO SCH (08:35)
[2020-01-07] MEDS: LOSARTAN POTASSIUM 50 MG TABLET. PO SCH (08:36)
[2020-01-07] MEDS: TAMSULOSIN 0.4 MG CAP.ER.24H. PO SCH (08:36)
[2020-01-07] MEDS: METOPROLOL SUCC 24HR ER 25 MG TAB.ER.24H. PO SCH (08:36)
[2020-01-07] MEDS: LACTOBACILLUS RHAMNOSUS GG 1 CAPSULE. PO SCH (08:36)
[2020-01-07] MEDS: DOCUSATE SODIUM 100 MG CAPSULE. PO PRN (08:36)
--- NOTE | 2020-01-07 09:44 | PDOC ---
PROGRESS NOTES Subjective Subjective not agitated Objective Objective Vital Signs Date Time Temp Pulse Resp B/P (MAP) Pulse Ox O2 Delivery O2 Flow Rate FiO2 01/07/20 08:36 79 135/67 01/07/20 08:00 Nasal Cannula 1.0 01/07/20 07:00 99.0 20 100 99.0 l Intake and Output 01/07/20 07:00 Intake Total 500 ml Output Total 325 ml Balance 175 ml Intake Oral 500 ml Output Urine Total 325 ml # Voids 2 Physical Exam Abdomen: Normal bowel sounds Heart: Regular rate Extremities: No cyanosis General: mild distress HEENT: Atraumatic, Mucous membr. moist/pink Lungs: Other (mildly decreased breath sounds) MUSCULOSKELETAL: Osteoarthritic changes both hands Neuro: Sensation intact Psych/Mental Status: Other (calm today) Skin: No breakdown, No significant lesion Diagnosis Problem List Problems Medical Problems: (1) Fever Status: Acute (2) Lactic acidosis Status: Acute (3) Non-STEMI (non-ST elevated myocardial infarction) Status: Acute (4) UTI (urinary tract infection) Status: Acute Assessment Assessment Problems Medical Problems: (1) Fever Status: Acute (2) Lactic acidosis Status: Acute (3) Non-STEMI (non-ST elevated myocardial infarction) Status: Acute (4) UTI (urinary tract infection) Status: Acute FINAL IMPRESSION:Agitation with hallucinations improved with haldol. 1. Fever.gram neg bacteremia 2. Sepsis with elevated white count. 3. Urinary tract infection, E Coli ,possible pyelonephritis, possible prostatitis. 4. Elevated troponin, non-ST elevation myocardial infarction. 5. History of pacemaker for sick sinus syndrome. 6. History of stents in the past. 7. Dementia. 8. Hypertension. 9. Arthritis, history of gout. PLAN: d/c home on Omnicef for 10 days Zyprexa 2.5 mg prn prn . blood c/s positive 2/2 for gram neg.E Coli urine c/s gram neg.E Coli . pot 3.4 replaced wbc 8 ,normal on zosyn d/cd heparin drip. ct abd and pelvis scan -ve spoke with ID. At this time, was admit to hospital. Urine and blood cultures. Start on vancomycin and Rocephin. We will change it to vancomycin and Zosyn. ID consult. We will get a CT of the abdomen and pelvis, look at the prostate and the kidneys. Also, the patient is on heparin drip for non-STEMI. Echocardiogram for left ventricular function and see how the patient's condition improves in the next 24-48 hours. The patient is pain free at this point. Try to contact the patient's , left a message. Plan Plan of Care Problems Medical Problems: (1) Fever Status: Acute (2) Lactic acidosis Status: Acute (3) Non-STEMI (non-ST elevated myocardial infarction) Status: Acute (4) UTI (urinary tract infection) Status: Acute Comment Review of Relevant I have reviewed the following items sachi (where applicable) has been applied. Labs Microbiology 01/02/20 Urine Culture - Final, Complete 01/02/20 Urine Culture Result 1 (DANY) - Final, Complete 01/02/20 Antimicrobic Susceptibility - Final, Complete 01/02/20 Blood Culture - Final, Complete 01/02/20 Blood Culture Result 1 (DANY) - Final, Complete 01/02/20 Antimicrobic Susceptibility - Final, Complete Medications Current Medications Cefdinir (Omnicef) 300 mg BID PO ; Start 01/07/20 at 12:00 Docusate Sodium (Colace) 100 mg PRN DAILY PRN PO CONSTIPATION Last administered on 01/07/20at 08:36; Start 01/06/20 at 09:45 Olanzapine (ZyPREXA) 2.5 mg HS PO Last administered on 01/06/20at 20:00; Start 01/06/20 at 21:00 Potassium Chloride (Klor-Con) 20 meq 1X ONCE PO Last administered on 01/06/20at 12:18; Start 01/06/20 at 09:45; Stop 01/06/20 at 09:46; Status DC Vitals/I & O Vital Sign - Last 24 Hours 01/06/20 01/06/20 01/06/20 01/06/20 10:12 14:45 16:13 19:00 Temp 98.3 98.0 97.9 98.3 98.0 97.9 Pulse 81 72 72 74 Resp 20 20 18 B/P (MAP) 138/62 (87) 133/71 (91) 133/71 133/67 (89) Pulse Ox 100 100 100 O2 Delivery Room Air Room Air Nasal Cannula O2 Flow Rate 1.0 01/06/20 01/06/20 01/07/2025/20 19:30 22:50 03:31 07:00 Temp 98.5 97.7 99.0 98.5 97.7 99.0 Pulse 78 76 79 Resp 18 20 B/P (MAP) 134/76 (95) 131/57 (81) 135/67 (89) Pulse Ox 99 100 100 O2 Delivery Nasal Cannula Nasal Cannula Nasal Cannula Nasal Cannula O2 Flow Rate 1.0 1.0 1.0 1.0 01/07/20 01/07/20 01/07/20 08:00 08:36 08:36 Pulse 79 79 B/P (MAP) 135/67 135/67 O2 Delivery Nasal Cannula O2 Flow Rate 1.0 Intake and Output 01/06/20 01/06/20 01/07/20 15:00 23:00 07:00 Intake Total 400 ml 100 ml Output Total 100 ml 225 ml Balance 300 ml -125 ml GUILLE PINEDA MD Jan 07, 2020 09:44
[2020-01-07] MEDS ORDERED: CEFD300C PO (09:47)
[2020-01-07] MEDS ORDERED: OLAN2.5T11 PO (09:47)
--- NOTE | 2020-01-07 09:49 | SNU/HH DC ---
DISCHARGE WITH HOME HEALTH DISCHARGE INFORMATION: Discharge Date: Jan 07, 2020 Final Diagnosis: Problems Medical Problems: (1) Fever Status: Acute (2) Lactic acidosis Status: Acute (3) Non-STEMI (non-ST elevated myocardial infarction) Status: Acute (4) UTI (urinary tract infection) Status: Acute Condition on Discharge: Stable CODE STATUS: Code Status: DNR/DNI HOME HEALTH: Face to Face: I certify this patient is under my care and that I, or a nurse practitioner or physician's communications assistant working with me, had a face to face encounter that meets the physician face to face encounter requirements with this patient on []. Medical Complications: Dementia RN For Eval/Treatment: Yes Physical Therapy For: Evalulation/Treatment IP COUNSEL For: Community Resources Pt Meets Homebound Status: Poor coordination w/ amb. POST DISCHARGE ORDERS: Activity Instructions for Disc: Activity as tolerated Weight Bearing Status after Di: As tolerated DIET AFTER DISCHARGE: Cardiac Wound/Incision Care: Change dressing CHECKS AFTER DISCHARGE: Checks after discharge: Check blood press - daily TREATMENT/EQUIPMENT ORDERS: Adaptive Equipment Issued: Brace/splint, Walker CERTIFICATION STATEMENT: Certification Statement: Certification Statement: Based on the above finding, I certify that this patient is confined to the home and needs intermittent group home care, physical therapy and/or speech therapy, or continues to need occupational therapy.~ This patient is under my care, and I have initiated the establishment of the plan of care.~ This patient will be followed by myself or a community physician who will periodically review the plan of care. Home Meds Active Scripts Olanzapine (OLANZAPINE) 2.5 Mg Tablet, 2.5 MG PO HS for agitation for 30 Days, #30 TAB Prov:GUILLE PINEDA MD 01/07/20 Cefdinir (CEFDINIR) 300 Mg Capsule, 300 MG PO BID for antibiotic e coli uti for 10 Days, #20 CAP Prov:GUILLE PINEDA MD 01/07/20 Metoprolol Succinate (TOPROL XL) 25 Mg Tab.er.24h, 1 TAB PO DAILY for htn for 30 Days, #30 TAB 0 Refills Prov:ABBY STARKS MD 11/22/19 Atorvastatin Calcium (ATORVASTATIN CALCIUM) 40 Mg Tablet, 40 MG PO QHS for chol for 30 Days, #30 TAB Prov:GUILLE PINEDA MD 08/27/19 Reported Medications Tamsulosin Hcl (FLOMAX) 0.4 Mg Cap.er.24h, 1 CAP PO BID for BPH, #30 CAP 11 Refills 08/26/19 Tramadol Hcl (TRAMADOL HCL) 50 Mg Tablet, 50 MG PO Q6HRS PRN for PAIN, TAB 08/26/19 Trazodone Hcl (TRAZODONE HCL) 50 Mg Tablet, 1 TAB PO QHS for Sleep aide , #30 TAB 1 Refill 08/26/19 Aspirin (ASPIRIN) 325 Mg Tablet, 1 TAB PO DAILY for stroke prevention, #30 TAB 5 Refills 08/26/19 Allopurinol (ALLOPURINOL) 300 Mg Tablet, 1 TAB PO DAILY for gout, #30 TAB 5 Refills 08/26/19 Losartan Potassium (LOSARTAN POTASSIUM) 50 Mg Tablet, 50 MG PO DAILY for HYPERTENSION, TAB 08/26/19 Nitroglycerin (NITROGLYCERIN SubLingual) 0.4 Mg Tab.subl, 1 TAB SL UD, #25 TAB 3 Refills 04/19/16 Felodipine (FELODIPINE ER) 5 Mg Tab.er.24h, 1 TAB PO DAILY16, #30 TAB 5 Refills 04/19/16 GUILLE PINEDA MD Jan 07, 2020 09:49
--- NOTE | 2020-01-07 09:55 | PDOC ---
Provider Note Provider Note Discharge summary dictated.#[id number] GUILLE PINEDA MD Jan 07, 2020 09:55
--- NOTE | 2020-01-07 10:36 | DS ---
DATE OF DISCHARGE: 01/07/2020 REASON FOR ADMISSION TO THE HOSPITAL: Sepsis with lactic acidosis secondary to E. coli bacteremia secondary to UTI. CONSULTATIONS: 1. Dr. Wade Mendez. 2. Dr. De Souza PROCEDURE DONE: Echocardiogram. HOSPITAL COURSE: The patient is an 84-year-old male with history of pacemaker, hypertension, arthritis, and dementia. He was having fever with confusion, was brought to the hospital and he had a white count of 16,000. Blood culture was positive for E. coli. Urine culture was positive for E. coli. The patient was treated with broad-spectrum antibiotics, vancomycin and Zosyn and antibiotics were tailored to E coli treatment. The patient also had elevated troponin. No chest pain. Troponin peaked to 0.4. Seen by Cardiology, he had non-STEMI. The patient in the meantime has developed agitation with confusion and he was felt not a good candidate for cardiac catheterization at this point. The patient had a stress test 2-3 months ago, negative for ischemia. The patient had a pacemaker, which was checked, was working fine. The patient had agitation, was given Haldol, changed it to Zyprexa, seen by psychiatrist probably for ICU-induced psychosis. On the whole, the patient's condition improved. He also had a CT of the abdomen and pelvis. No pyelonephritis, no obstructive uropathy. FINAL DIAGNOSES: 1. Escherichia coli sepsis with bacteremia and lactic acidosis. 2. Escherichia coli urinary tract infection secondary to benign prostatic hypertrophy. 3. Non ST-elevation myocardial infarction secondary to above. 4. Pacemaker for sick sinus syndrome. 5. Hypertension. 6. Dementia with psychosis. 7. Gouty arthritis. DISPOSITION: Home. DISCHARGE MEDICATIONS: See MRAD for discharge medications. PLAN: The patient at this time was sent home with home health and down the road if the patient's conditions stabilize, may bring him back for cardiac catheterization, but at this point medical treatment. Echocardiogram shows 40-45% ejection fraction. GUILLE PINEDA MD DR: MELISSA/michelle JOB#: [id number] / [id number]
[2020-01-07 11:13] VITALS: BP 101/47
[2020-01-07] MEDS ORDERED: CEFDINIR 300 MG CAPSULE PO SCH (12:00)
--- NOTE | 2020-01-07 12:36 | NUR ---
SS following up with discharge planning. Discharge orders for home healthcare received. Pt was current with [facility], ; fax [phone]. Discharge orders and referral phoned and faxed to [facility]. Six minute walk ordered. Pt's RN notified.
--- NOTE | 2020-01-07 14:04 | PDOC ---
CARDIO Progress Notes Date and Time Date of Service 01/07/2020 Time of Evaluation 1400 Subjective Subjective: No Chest Pain, No shortness of breath, No Palpitations Vitals Vitals Vital Signs Date Time Temp Pulse Resp B/P (MAP) Pulse Ox O2 Delivery O2 Flow Rate FiO2 01/07/20 11:13 97.5 80 18 101/47 (65) 98 Room Air 97.5 01/07/20 08:00 1.0 Weight Weight [ ] Input and Output Intake and Output Intake and Output 01/07/20 07:00 Intake Total 500 ml Output Total 325 ml Balance 175 ml Intake Oral 500 ml Output Urine Total 325 ml # Voids 2 Microbiology Micro Microbiology 01/02/20 Urine Culture - Final, Complete 01/02/20 Urine Culture Result 1 (DANY) - Final, Complete 01/02/20 Antimicrobic Susceptibility - Final, Complete 01/02/20 Blood Culture - Final, Complete 01/02/20 Blood Culture Result 1 (DANY) - Final, Complete 01/02/20 Antimicrobic Susceptibility - Final, Complete Physical Exam HEENT: Neck Supple W Full Motion Chest: Symmetric LUNGS: Clear to Auscultation Heart: S1S2, RRR (SR with PACs), murmurs (2/6 systolic murmur) Abdomen: Soft N/T Extremities: No Edema Neurology: alert, follow commands Assessment Assessment 1. NSTEMI: Peaked trop at 3.46. No chest pain 2. UTI/sepsis/bacteremia: Tmax 103.7. Followed by ID. Gram-negative/E coli sepsis Abx per ID 3. Metabolic encephalopathy. still has periods of confusion 4. HTN: controlled 5. CAD; stent in 2001. recent MPI 05/2019 nml. 6. PAD: clincally stable. prior stent placement ro RLE 7. SSS: S/P PPM ([place]) 8. Thrombocytopenia: Improved to 121. 9. Hx of PAT 10. Possible mild SBO 11. Cardiomyopathy: compensated. EF at 40-45% Recommendations Secondary prevention measures; ASA,statin, BB, ARB, Lasix PRN. Rx provided per CHF s/s Ongoing antibiotic therapy Ischemic eval deferred at this time due to significant comorbid conditions and with pt with no cardiac symptoms. Further ischemic evaluation as an outpt DC home today with good support system and will receive services ANUEL BLAND APRN Jan 07, 2020 14:04
--- NOTE | 2020-01-07 14:38 | NUR ---
Discharge Note: BOO MEDINA E [address] [place] [address] Discharge instructions and discharge home medications reviewed with Patient and a copy given. All questions have been answered and understanding verbalized. The following instructions and handouts were given: Chest pain and UTI Discontinued IV Patient discharged to home with home health via wheelchair
== END 2020-01-07 14:40 | disposition home health service (06) | DRG 871 ==
LOC: ER 15:10 → ED HOLD 17:27 → 2 SOUTH 19:31
PROVIDERS: ADMIT Internal Medicine; ATTEND Internal Medicine
DX: A41.51 Sepsis due to Escherichia coli [E. coli] (principal); I21.4 Non-ST elevation (NSTEMI) myocardial infarction; G93.41 Metabolic encephalopathy; N17.9 Acute kidney failure, unspecified; I42.9 Cardiomyopathy, unspecified; K56.609 Unspecified intestinal obstruction, unspecified as to partial versus complete obstruction; N39.0 Urinary tract infection, site not specified; D69.6 Thrombocytopenia, unspecified; E78.5 Hyperlipidemia, unspecified; F01.50 Vascular dementia, unspecified severity, without behavioral disturbance, psychotic disturbance, mood disturbance, and anxiety; F41.9 Anxiety disorder, unspecified; G47.00 Insomnia, unspecified; I11.0 Hypertensive heart disease with heart failure; I25.10 Atherosclerotic heart disease of native coronary artery without angina pectoris; I49.5 Sick sinus syndrome; I50.9 Heart failure, unspecified; I73.9 Peripheral vascular disease, unspecified; M10.9 Gout, unspecified; M19.90 Unspecified osteoarthritis, unspecified site; N40.0 Benign prostatic hyperplasia without lower urinary tract symptoms; Z82.49 Family history of ischemic heart disease and other diseases of the circulatory system; Z87.891 Personal history of nicotine dependence; Z95.0 Presence of cardiac pacemaker
CPT/HCPCS: 36415; 71045; 74177; 80048; 80053; 80061; 81001; 82553; 82962; 83605; 83735; 83880; 84443; 84484; 85007; 85025; 85027; 85520; 85610; 85730; 87040; 87077; 87086; 87186; 87205; 87804; 93005; 93306; 94618; 96361; 96365; 96375; J0696; J1630; J1644; J2060; J2543; J3370; J3475; J7030; J7040; P9612; Q9966; Q9967; 97530; 99285-25; G0378

== ENCOUNTER 2020-02-19 09:28 | Emergency (ER) | payer MEDICARE, OTHER ==
[~2020-02-19] VITALS: Ht 170.2 cm; Wt 52.0 kg
[~2020-02-19 09:28] MED LIST changes: +BUSP5TAB PO; +CEFD300C PO; +DICL100G54 TP; +HYDR-2761 PO; +LIDO700A21 TD; +MIRT15TA3 PO; +OLAN2.5T11 PO; +OLAN5TAB9 PO
[2020-02-19] MEDS ORDERED: ONDANSETRON PF 4 MG/2 ML VIAL. IVP ONE (10:00)
[2020-02-19 10:04] LABS: BASO # 0.1 x10^3/uL (0.0-0.2); BASO % 1 % (0-3); EOS % 0 % (0-3); HEMATOCRIT 27.6 % (39.0-53.0); HEMOGLOBIN 9.3 g/dL (13.0-17.5); LYMPH % 6 % (24-48); MEAN CORPUSCULAR HEMOGLOBIN 27 pg (25-35); MEAN CORPUSCULAR HGB CONC 34 g/dL (31-37); MEAN CORPUSCULAR VOLUME 80 fL (79-100); MONO # 0.2 x10^3/uL (0.0-1.1); MONO % 1 % (0-9); NEUT # 15.2 x10^3/uL (1.8-7.7); NEUT % 92 % (31-73); PLATELET COUNT 380 x10^3/uL (140-400); RED BLOOD COUNT 3.47 x10^6/uL (4.30-5.70); RED CELL DISTRIBUTION WIDTH 16.9 % (11.5-14.5); WHITE BLOOD COUNT 16.5 x10^3/uL (4.0-11.0)
[2020-02-19 10:13] LABS: CREATININE 2.5 mg/dL (0.7-1.3); GFR 29.8; POTASSIUM 3.1 mmol/L (3.5-5.1)
[2020-02-19 10:20] LABS: ALBUMIN 2.2 g/dL (3.4-5.0); ALBUMIN/GLOBULIN RATIO 0.4 (1.0-1.7); TOTAL BILIRUBIN 1.4 mg/dL (0.2-1.0)
[2020-02-19 10:38] LABS: BILIRUBIN,URINE SMALL (NEG); CLARITY,URINE CLOUDY; COLOR,URINE YELLOW; NITRITE,URINE NEGATIVE (NEG); PROTEIN,URINE NEGATIVE (NEG-TRACE)
[2020-02-19 10:41] LABS: PROTHROMBIN TIME PATIENT 14.8 SEC (11.7-14.0)
[2020-02-19 10:43] LABS: % BANDS 1 % (0-9); % LYMPHS 4 % (24-48); % MONOS 1 % (0-10); % SEGS 94 % (35-66); ANISOCYTOSIS SLIGHT; PLT ESTIMATE ADEQUATE (ADEQUATE); TARGET CELLS OCC
[2020-02-19 10:48] LABS: BACTERIA,URINE MANY /HPF (0-FEW); RBC,URINE FIELD OBSCURED /HPF (0-2); WBC,URINE TNTC /HPF (0-4)
--- NOTE | 2020-02-19 11:09 | EKG ---
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 COMPLEX(ES) WITH ABERRANT INTRAVENTRICULAR CONDUCTION VENTRICULAR PREMATURE COMPLEX(ES) LEFTWARD AXIS LOW LIMB LEAD VOLTAGE LVH WITH REPOLARIZATION ABNORMALITY NONSPECIFIC ST-T WAVE CHANGES. Electronically Signed On 02-20-2020 8:43:13 CDT by Dionte Rutledge
--- NOTE | 2020-02-19 11:16 | RAD ---
EXAM: Chest, single view. HISTORY: Altered mental status. COMPARISON: 01/21/2020 FINDINGS: A frontal view of the chest is obtained. There is a small left pleural effusion which appears increased or new compared to the prior exam. The right costophrenic angle is excluded from the [id number]. There is bilateral lower lobe atelectasis or interstitial infiltrate. There is no pneumothorax. The heart is normal in size. There is a cardiac pacemaker in expected position. IMPRESSION: 1. New or increased small left pleural effusion. 2. Stable suspected bilateral lower lobe atelectasis or interstitial infiltrate. Electronically signed by: Dilcia Saini MD (02/19/2020 11:14 AM) [facility]
[2020-02-19] MEDS ORDERED: cefTRIAXone IV Push 1 GM VIAL. IVP ONE (11:45)
[2020-02-19] MEDS ORDERED: EPINEPHrine SYRINGE 1 MG/10 ML SYRINGE ONE (12:00)
--- NOTE | 2020-02-19 12:05 | PHYS DOC ---
Past Medical History Past Medical History: CAD, CHF, Dementia, High Cholesterol, Hypertension, MD, UTI, Vascular Disease Additional Past Medical Histor: HX OF V-TACH, SVT, OSTEOMYELITIS, OSTEOARTHRITIS, GOUT Past Surgical History: Pacemaker, Other Additional Past Surgical Histo: stents Smoking Status: Former Smoker Alcohol Use: None Drug Use: None General Adult EDM: Chief Complaint: NAUSEA/VOMITING/DIARRHA HPI: HPI: Patient is a 84 year old male with history of hypertension, dyslipidemia, coronary artery disease, CHF, dementia, history of V. tach, SVT, osteomyelitis, osteoarthritis, gout who presents via EMS with complaint of nausea and vomiting. Patient has dementia and unable to tell me his name or follows the command. EMS reported that patient son stated he had nausea and vomiting for the last 2 days and his is sick and unable to taking care of him at home. Review of Systems: Review of Systems: Unable to obtain because of dementia Heart Score: Risk Factors: Risk Factors: DM, Current or recent (<one month) smoker, HTN, HLP, family history of CAD, obesity. Risk Scores: Score 0 - 3: 2.5% MACE over next 6 weeks - Discharge Home Score 4 - 6: 20.3% MACE over next 6 weeks - Admit for Clinical Observation Score 7 - 10: 72.7% MACE over next 6 weeks - Early Invasive Strategies Current Medications: Current Medications Medications (Trade) Dose Ordered Sig/Kalyn Start Time Stop Time Status Last Admin Dose Admin Ceftriaxone Sodium (Rocephin) 1 gm 1X ONCE 02/19/20 11:45 02/19/20 11:46 DC Ondansetron HCl (Zofran) 4 mg 1X ONCE 02/19/20 10:00 02/19/20 10:01 DC 02/19/20 10:17 4 MG Allergies: Allergies: Allergies Coded Allergies Type Severity Reaction Last Updated Verified No Known Drug Allergies 09/18/19 No Physical Exam: PE: Constitutional: Thin, no acute distress, non-toxic appearance. [] HENT: Normocephalic, atraumatic,. Eyes: PERRLA, EOMI, conjunctiva normal, no discharge. [] Neck: Normal range of motion, no tenderness, supple, no stridor. [] Cardiovascular:Heart rate regular rhythm, no murmur [] Lungs & Thorax: Bilateral breath sounds clear to auscultation [] Abdomen: Bowel sounds normal, soft, no tenderness, no masses, no pulsatile masses. [] Skin: Warm, dry, no erythema, no rash. [] Back: No tenderness, no CVA tenderness. [] Extremities: No tenderness, no cyanosis, no clubbing Neurologic: Alert, disoriented at his baseline according to his son, does not follow the command Psychologic: Affect normal, unable to evaluate. Current Patient Data: Labs: Laboratory Tests Test 02/19/20 09:50 02/19/20 10:22 02/19/20 10:30 White Blood Count 16.5 x10^3/uL (4.0-11.0) H Red Blood Count 3.47 x10^6/uL (4.30-5.70) L Hemoglobin 9.3 g/dL (13.0-17.5) L Hematocrit 27.6 % (39.0-53.0) L Mean Corpuscular Volume 80 fL (79-100) Mean Corpuscular Hemoglobin 27 pg (25-35) Mean Corpuscular Hemoglobin Concent 34 g/dL (31-37) Red Cell Distribution Width 16.9 % (11.5-14.5) H Platelet Count 380 x10^3/uL (140-400) Neutrophils (%) (Auto) 92 % (31-73) H Lymphocytes (%) (Auto) 6 % (24-48) L Monocytes (%) (Auto) 1 % (0-9) Eosinophils (%) (Auto) 0 % (0-3) Basophils (%) (Auto) 1 % (0-3) Neutrophils # (Auto) 15.2 x10^3/uL (1.8-7.7) H Lymphocytes # (Auto) 1.0 x10^3/uL (1.0-4.8) Monocytes # (Auto) 0.2 x10^3/uL (0.0-1.1) Eosinophils # (Auto) 0.0 x10^3/uL (0.0-0.7) Basophils # (Auto) 0.1 x10^3/uL (0.0-0.2) Segmented Neutrophils % 94 % (35-66) H Band Neutrophils % 1 % (0-9) Lymphocytes % 4 % (24-48) L Monocytes % 1 % (0-10) Platelet Estimate Adequate (ADEQUATE) Anisocytosis Slight Target Cells Occ Sodium Level 135 mmol/L (136-145) L Potassium Level 3.1 mmol/L (3.5-5.1) L Chloride Level 98 mmol/L (98-107) Carbon Dioxide Level 28 mmol/L (21-32) Anion Gap 9 (6-14) Blood Urea Nitrogen 42 mg/dL (8-26) H Creatinine 2.5 mg/dL (0.7-1.3) H Estimated GFR (Cockcroft-Gault) 29.8 BUN/Creatinine Ratio 17 (6-20) Glucose Level 96 mg/dL (70-99) Calcium Level 9.0 mg/dL (8.5-10.1) Total Bilirubin 1.4 mg/dL (0.2-1.0) H Aspartate Amino Transferase (AST) 38 U/L (15-37) H Alanine Aminotransferase (ALT) 41 U/L (16-63) Alkaline Phosphatase 147 U/L (46-116) H Creatine Kinase 78 U/L (39-308) Troponin I Quantitative 0.042 ng/mL (0.000-0.055) Total Protein 8.0 g/dL (6.4-8.2) Albumin 2.2 g/dL (3.4-5.0) L Albumin/Globulin Ratio 0.4 (1.0-1.7) L Lipase 51 U/L (73-393) L Prothrombin Time 14.8 SEC (11.7-14.0) H Prothrombin Time INR 1.2 (0.8-1.1) H Urine Collection Type U cath Urine Color Yellow Urine Clarity Cloudy Urine pH 5.0 (<5.0-8.0) Urine Specific [place] 1.010 (1.000-1.030) Urine Protein Negative mg/dL (NEG-TRACE) Urine Glucose (UA) Negative mg/dL (NEG) Urine Ketones (Stick) Negative mg/dL (NEG) Urine Blood Trace (NEG) Urine Nitrite Negative (NEG) Urine Bilirubin Small (NEG) Urine Urobilinogen Dipstick 1.0 mg/dL (0.2 mg/dL) Urine Leukocyte Esterase Large (NEG) Urine RBC Field obscured /HPF (0-2) Urine WBC Tntc /HPF (0-4) Urine Bacteria Many /HPF (0-FEW) Laboratory Tests 02/19/20 09:50 Laboratory Tests 02/19/20 09:50 Vital Signs: Vital Signs Date Time Temp Pulse Resp B/P (MAP) Pulse Ox O2 Delivery O2 Flow Rate FiO2 02/19/20 11:10 75 20 122/39 (66) 99 Room Air 02/19/20 09:28 99.1 99.1 EKG: EKG: EKG interpreted by me. EKG at 0941 showed sinus tachycardia at rate of 102, PVCs, leftward axis, low voltage QRS, LVH, normal SC interval, prolonged QTC interval, poor R wave progression anteroseptal leads. Radiology/Procedures: Radiology/Procedures: [facility] [address] [place], [place] [id number] IMAGING REPORT Signed PATIENT: BOO MEDINA EACCOUNT: [id number] : 1935 LOCATION: ER AGE: 84 SEX: M EXAM STATUS: REG ER ORD. PHYSICIAN: GEREMIAS ALVAREZ MD REASON: ALTERED MENTAL STATES PROCEDURE: CHEST AP ONLY EXAM: Chest, single view. HISTORY: Altered mental status. COMPARISON: 01/21/2020 FINDINGS: A frontal view of the chest is obtained. There is a small left pleural effusion which appears increased or new compared to the prior exam. The right costophrenic angle is excluded from the [id number]. There is bilateral lower lobe atelectasis or interstitial infiltrate. There is no pneumothorax. The heart is normal in size. There is a cardiac pacemaker in expected position. IMPRESSION: 1. New or increased small left pleural effusion. 2. Stable suspected bilateral lower lobe atelectasis or interstitial infiltrate. Electronically signed by: Dilcia Saab MD (02/19/2020 11:14 AM) [facility] DICTATED and SIGNED BY: DILCIA SAAB MD DATE: 02/19/20 1114 Course & Med Decision Making: Course & Med Decision Making Pertinent Labs and Imaging studies reviewed. (See chart for details) Evaluation of patient inertial 84-year-old male patient brought in from home because of vomiting for 2 days. Patient did not have episode of vomiting in ER and did not have tachycardia, fever, hypotension at arrival to ER. Patient had one episode of hypotension without tachycardia that improved with Trendelenburg position and IV fluids. Patient had leukocytosis and lactic acid later on reported 4.2 and sepsis protocol was restarted. Patient requiring admission for further evaluation and treatment. Discussed with Dr. Pineda who is in agreement with admission. Discussed findings and plan with patient and family, who acknowledge understanding and agreement. Dragon Disclaimer: Dragon Disclaimer: This electronic medical record was generated, in whole or in part, using a voice recognition dictation system. Departure Departure Impression: Primary Impression: UTI (urinary tract infection) Qualified Codes: N39.0 - Urinary tract infection, site not specified Additional Impressions: Nausea and vomiting Qualified Codes: R11.2 - Nausea with vomiting, unspecified Renal insufficiency Anemia Qualified Codes: D64.9 - Anemia, unspecified Severe sepsis Disposition: ADMITTED INPATIENT (At 1140) Admitting Physician: Brandon Pineda (Accepted admission at 1138) Condition: IMPROVED Referrals: BRANDON PINEDA MD (PCP) Date and Time of Reassessment Date: Sep 18, 2019 Time: 13:39 Fluid Challenge Is the fluid challenge complet: No IBW Target Volume Used: Yes BMI > 30: No Vital Signs Vital Signs: Vital Signs Date Time Temp Pulse Resp B/P (MAP) Pulse Ox O2 Delivery O2 Flow Rate FiO2 02/19/20 12:30 75 109/50 (69) Room Air 02/19/20 11:51 96 02/19/20 11:10 20 02/19/20 09:28 99.1 99.1 Temperature Source: Axillary Respirations Respiratory Effort: Normal Respiratory Pattern: Normal Cardiovascular Pulse Rhythm: Regular Heart: Nml rate, reg. rhythm Lung Sounds Breath Sounds: Clear Capillary Refil Capillary Refill: Rt Hand < 3 seconds Peripheral Pulse Pulse Location: Radial Pulse Strength: Normal (2+) Pulse Assessment Method: NIBP Integumentary Skin Moisture: Dry Critical Care Time Critical care time was 60 minutes exclusive of procedures. GEREMIAS ALVAREZ MD Feb 19, 2020 12:05
[2020-02-19 12:30] VITALS: BP 109/50
[2020-02-19] MEDS ORDERED: IV NORMAL SALINE 1000ML BAG 1,000 ML IV ONE ×2 (12:30→13:45)
[2020-02-19] MEDS ORDERED: VANCOMYCIN 1GM IVPB FOR OMNI 250 ML IV ONE (13:45)
[2020-02-19] MEDS ORDERED: VANCOMYCIN 1.25 GM in IV NORMAL SALINE 250ML 250 ML IV ONE (14:00)
--- NOTE | 2020-02-25 19:32 | PDOC ---
Provider Note Provider Note combined H&P and summary dictated.#[id number]. GUILLE PINEDA MD Feb 25, 2020 19:32
--- NOTE | 2020-02-25 20:28 | DS ---
DATE OF DISCHARGE: 02/19/2020 COMBINED HISTORY AND PHYSICAL AND SUMMARY DATE OF : 02/19/2020 HOSPITAL COURSE: The patient is an 84-year-old male. Please refer to ER note. The patient had a history of dementia, coronary artery disease, pacemaker, had a recent NE, had hypertension and urinary tract infections. He came with nausea and vomiting for 2 days and is also not able to take care of him, was brought to the hospital. By the time he came in, he had an elevated white count, lactic acidosis and had blood cultures positive, urine was positive, and the patient had a sudden cardiac arrest. CPR was done as per ACLS protocol, but the patient did not make it. FINAL DIAGNOSES: 1. Sepsis. 2. Escherichia coli bacteremia. 3. Escherichia coli urinary tract infection. 4. Benign prostatic hypertrophy. 5. Dementia. 6. Underlying coronary artery disease. 7. Chronic sick sinus syndrome, pacemaker. 8. Degenerative arthritis. 9. Progressive dementia. The patient from medical causes. GUILLE PINEDA MD DR: EMLISSA/michelle JOB#: [id number] / [id number]
== END 2020-02-19 14:01 ==
LOC: ER 09:28 → 4 NORTH 11:39 → UNDOADMIN 11:39 → ER 14:01 → UNDODISIN 14:50
PROC: 5A12012 Performance of Cardiac Output, Single, Manual (ICD-10-PCS; principal; 2020-02-19)
DX: A41.9 Sepsis, unspecified organism (principal); N39.0 Urinary tract infection, site not specified; I46.9 Cardiac arrest, cause unspecified; D64.9 Anemia, unspecified; E78.00 Pure hypercholesterolemia, unspecified; E78.5 Hyperlipidemia, unspecified; F03.90 Unspecified dementia, unspecified severity, without behavioral disturbance, psychotic disturbance, mood disturbance, and anxiety; I11.0 Hypertensive heart disease with heart failure; I25.10 Atherosclerotic heart disease of native coronary artery without angina pectoris; I50.9 Heart failure, unspecified; N28.9 Disorder of kidney and ureter, unspecified; R65.20 Severe sepsis without septic shock; Z87.891 Personal history of nicotine dependence; M10.9 Gout, unspecified; M19.90 Unspecified osteoarthritis, unspecified site; I25.2 Old myocardial infarction; Z66 Do not resuscitate
CPT/HCPCS: 31500; 36415; 71045; 80053; 81001; 82550; 83605; 83690; 83880; 84484; 85007; 85025; 85610; 87040; 87077; 87086; 87186; 87205; 87635; 92950; 93005; 96361; 96365; 96375; 99291; J0171; J0696; J2405; J3370; J7030; J7050; 96374; 96376; G0378